=== PATIENT | male | born 1955 | race Two or more races ===

== ENCOUNTER 2023-12-24 11:31 | Emergency (ER) | payer OTHER, MEDICARE, SELFPAY ==
[2023-12-24 11:35] VITALS: BP 128/83; PULSE 82; RESP 15; TEMP 36.7; O2SAT 98; BMI 19.5
--- NOTE | 2023-12-24 11:45 | PD.EDAMS ---
Altered Mental Status RME/HPI General Chief Complaint: Altered Mental Status Stated Complaint: HYPOGLYCEMIA Time Seen by Provider: 12/24/23 11:44 Arrival date/time: 12/24/23 11:31 This is a 68-year-old male that comes in with complaints of altered mental status. Patient brought in by ambulance and was told that his blood sugar was 33 upon their arrival. Patient was given some glucose and now is blood sugar is 211. Patient reports that he has been sick for the last few days and not feeling well. Patient not eating and drinking like he usually does. Patient currently complains of a headache. Patient has a history of his gallbladder being removed in the past. Patient states he is not diabetic. Patient complains of a cough for the last few days. Patient also complains of vomiting for the past 3 days. Patient reports he is not able to keep anything down. Patient denies any runny nose sore throat. Patient does complain of a headache. Related Data Home Medications ?Medication ?Instructions ?Recorded ?Confirmed ferrous sulfate 325 mg (65 mg 325 mg PO QDAY 09/15/22 12/25/23 iron) tablet vitamin B6-vitamin E-magnesium 1 tab PO QDAY 09/15/22 12/25/23 tablet Previous Rx's ?Medication ?Instructions ?Recorded ondansetron 4 mg disintegrating 4 mg PO Q8H #10 tabs 12/24/23 tablet amoxicillin 500 mg capsule 500 mg PO Q12H #10 caps 12/26/23 aspirin 81 mg tablet,delayed 81 mg PO QDAY 30 days #30 tabs 12/26/23 release atorvastatin 20 mg tablet 20 mg PO HS 30 days #30 tabs 12/26/23 food supplemt, lactose-reduced 1 ea PO BID #3,960 mL 12/26/23 (Ensure MAX Protein oral liquid) pantoprazole 20 mg tablet,delayed 20 mg PO QDAY #14 tabs 12/26/23 release Allergies Allergy/AdvReac Type Severity Reaction Status Date / Time No Known Allergies Allergy Verified 09/15/22 10:12 Review of Systems Review of Systems Systems Reviewed: All systems reviewed, normal except as documented Past Medical History Past Medical History NEUROLOGIC: Negative Neurological Disorders CARDIAC: Positive Cardiac Disorders and Coronary Artery Disease GASTROINTESTINAL: Positive Hepatitis GENITOURINARY: Negative Genitourinary Disorders or Renal Disease MUSCULOSKELETAL: Negative Musculoskeletal Disorders Family History FAMILY HISTORY: Positive Family Cardiac Disorders Surgical History SURGICAL: Positive Coronary Stent Social History SMOKING STATUS: Former smoker SECOND HAND EXPOSURE: No ED Exam General General appearance: Present alert and in no apparent distress Head Head exam: Present atraumatic Eye Eye exam: Present normal appearance, PERRL and EOMI ENT ENT exam: Present normal exam, normal oropharynx and mucous membranes moist Neck Neck exam: Present normal inspection, full ROM and trachea midline Chest Chest inspection: Present normal inspection and symmetric chest wall rise Respiratory Respiratory exam: Present normal lung sounds bilaterally Cardiovascular Cardiovascular exam: Present regular rate, normal rhythm and normal heart sounds Abdominal Exam Abdominal exam: Present soft and other (soft nontender ) Extremities Exam Extremities exam: Present normal inspection and full ROM Back Exam Back exam: Present normal inspection and full ROM Neurological Exam Neurological exam: Present alert and oriented X3 Psychiatric Psychiatric exam: Present normal affect and normal mood Skin Skin exam: Present warm, dry, intact and normal color Course Quality Measures none Orders Category Date Time Status Bedside Blood Glucose NOW Care 12/24/23 15:44 Completed Bedside COVID-19 Antigen Test NOW Care 12/24/23 11:46 Completed Bedside Influenza A&B Antigen Test NOW Care 12/24/23 11:[address] head/brain wo con Stat Exams 12/24/23 11:46 Completed XR chest 2V Stat Exams 12/24/23 11:46 Completed CBC Stat Lab 12/24/23 12:45 Completed Comprehensive Metabolic Panel Stat Lab 12/24/23 12:45 Completed Drug Screen,Urine Stat Lab 12/24/23 14:45 Completed Lipase Stat Lab 12/24/23 12:45 Completed Urinalysis, C/S if Indicated Stat Lab 12/24/23 14:45 Completed Dextrose 10%-Water 1000 ml [D10w 1000 ml] 1,000 ml Med 12/24/23 12:26 Discontinued IV 50 mls/hr DiphenhydrAMINE INJ [Benadryl Inj] Med 12/24/23 13:32 Discontinued 12.5 mg IM X1 ONE DiphenhydrAMINE INJ [Benadryl Inj] Med 12/24/23 13:37 Discontinued 12.5 mg IVP X1 ONE Ketorolac Inj [Toradol Inj] Med 12/24/23 13:32 Discontinued 30 mg IVP X1 ONE Ondansetron Inj [Zofran Inj] Med 12/24/23 12:46 Discontinued 4 mg IV X1 ONE Sodium Chloride 0.9% 500 ml [Ns] 500 ml Med 12/24/23 12:46 Discontinued IV 999 mls/hr Vital Signs Vital signs: Vital Signs Temperature 98.0 F 12/24/23 11:35 Pulse Rate 82 12/24/23 11:35 Respiratory Rate 15 12/24/23 11:35 Blood Pressure 128/83 12/24/23 11:35 Pulse Oximetry (%) 98 12/24/23 11:35 Oxygen Delivery Method Room Air 12/24/23 11:35 Altered Mental Status MDM Narrative MDM Narrative:: This is a 68-year-old male that comes in with complaints of altered mental status. Patient brought in by ambulance and was told that his blood sugar was 33 upon their arrival. Patient was given some glucose and now is blood sugar is 211. Patient reports that he has been sick for the last few days and not feeling well. Patient not eating and drinking like he usually does. Patient currently complains of a headache. Patient has a history of his gallbladder being removed in the past. Patient states he is not diabetic. Patient complains of a cough for the last few days. Patient also complains of vomiting for the past 3 days. Patient reports he is not able to keep anything down. Patient denies any runny nose sore throat. Patient does complain of a headache. Denies fever or chills. Patient given IV fluids. Patient given Zofran for nausea. Patient able to eat a sandwich and orange juice. patient reports feeling better and feels comfortable going home at this time. Patient was complaining of a headache so he was given Benadryl, Toradol for pain. Patient reports his headache is better. I spoke to patient at length about labs. I told him he would need to follow-up with his primary provider. Labs show a white count of 3.0, hemoglobin and hematocrit of 11.5 and 31.9. Platelet count is low at 74 sodium is 130, potassium 3.6 chloride 98 kidney function looks okay today glucose on labs show 133 AST is 43, urine shows some blood. Chest x-ray shows no active disease. I spoke to patient about possibly having an enlarged prostate. Patient not having urinary symptoms but we will send a urine culture. Covid and influenza negative. Patient feels comfortable going home at this time with . Patient data External records reviewed:: [facility] previous records Clinical information provided by:: patient Social determinants that could affect healthcare access:: none Patient has the following chronic illnesses:: none How is presenting disease/condition affected by chronic disease/condition?: no chronic disease Evaluation data The following diagnostics were reviewed and interpreted by me:: lab results and radiology exam(s) Lab and/or radiology exams considered but not ordered:: none Interpretation Summary: see note Medications / Prescriptions Medications or Prescriptions considered but not ordered:: none Medication administrations:: Medication Administration History Discontinued Medications Diphenhydramine HCl (Diphenhydramine Inj 50 Mg/Ml Vial) 12.5 mg IM X1 ONE Stop: 12/24/23 13:33 Last Admin: 12/24/23 13:38 Dose: Not Given Documented By: DO Non-Admin Reason: ALTERNATE ROUTE Diphenhydramine HCl (Diphenhydramine Inj 50 Mg/Ml Vial) 12.5 mg IVP X1 ONE Stop: 12/24/23 13:38 Last Admin: 12/24/23 14:02 Dose: 12.5 mg Documented By: YEYO Dextrose (D10w 1000 Ml) 1,000 mls @ 50 mls/hr IV .Q20H SUZY Stop: 12/25/23 08:25 Last Admin: 12/24/23 12:46 Dose: Not Given Documented By: VG Non-Admin Reason: Discontinued Sodium Chloride (Ns) 500 mls @ 999 mls/hr IV .Q31M ONE Stop: 12/24/23 13:16 Last Infusion: 12/24/23 13:39 Dose: Infused Documented By: Admin: 12/24/23 13:01 Dose: 999 mls/hr Documented By: YEYO Ketorolac Tromethamine (Ketorolac Inj 30 Mg/Ml Vial) 30 mg IVP X1 ONE Stop: 12/24/23 13:33 Last Admin: 12/24/23 13:56 Dose: 30 mg Documented By: YEYO Ondansetron HCl (Ondansetron Inj 2 Mg/Ml Inj 2 Ml) 4 mg IV X1 ONE; Protocol Stop: 12/24/23 12:47 Last Admin: 12/24/23 12:59 Dose: 4 mg Documented By: YEYO see mar Consultations Consultation(s) initiated? (list below): No Diagnosis Differential diagnosis altered mental status: altered mental status, hypoglycemia, subarachnoid hemorrhage and sepsis Most likely diagnosis given after review of the tests above:: dehydration, upper respiratory infection Admission Indicated Admission indicated?: not indicated Admission Request Was there a request for admission?: No Disposition Plan Disposition Plan: Discharge Discharge Attestation Discharge Attestation: The patient and all family members were given an opportunity to ask questions and understood the discharge instructions. Discharge instructions specifically effects, indications for sooner follow up or return to the emergency department, and the expected course of current diagnosis. Patient condition: Stable Discharge Plan Plan Patient Disposition: HOME (Self Care) Patient condition on transfer: Stable Prescriptions/Referrals Prescriptions/Med Rec: New ondansetron 4 mg tablet,disintegrating 4 mg PO Q8H Qty: 10 0RF No Action atorvastatin 20 mg Tablet 20 mg PO HS 30 Days Qty: 30 0RF aspirin 81 mg Tablet,Delayed Release (Dr/Ec) 81 mg PO QDAY 30 Days Qty: 30 3RF amoxicillin 500 mg capsule 500 mg PO Q12H Qty: 10 0RF pantoprazole 20 mg tablet,delayed release (DR/EC) 20 mg PO QDAY Qty: 14 0RF Ensure MAX Protein Liquid 1 ea PO BID Qty: 3960 0RF ferrous sulfate 325 mg (65 mg iron) Tablet 325 mg PO QDAY vitamin B6-vitamin E-magnesium Tablet 1 tab PO QDAY Referrals: Erick Osborne MD [Primary Care Provider] - In 1 week Problem List Clinical Impression: Vomiting, Cough, Upper respiratory infection, viral, Hypoglycemia, Hematuria, Thrombocytopenia Patient/Caregiver Discharge Instructions Discharge Activity: activity as tolerated Education Materials: Thrombocytopenia, ED URI, Viral, No Abx (Adult), ED Vomiting and Diarrhea ... Additional Instructions: Please drink plenty of fluids. Come back to the emergency room if symptoms change or worsen. Follow-up with primary provider in 1 to 2 days. Print Language: Bengali Stand Alone Forms: Charley Award Info., Patient Portal Info Letter PA/KARLOS Supervising Physician EDUAR/KARLOS Supervising Physician: stefanie
--- NOTE | 2023-12-24 11:46 | XR_ITS ---
Examination: CT brain head without contrast. 2-D sagittal coronal reconstructions Date and time of exam:December 24, 2023 1224 hours INDICATIONS: Altered mental status today CTDI: vol (mGy):47.7 DLP: (mGycm):1050 Technique: Multiple CT axial sections of the brain have been obtained, 5 mm slice thickness. Contrast has not been administered. 2-D sagittal, coronal reconstructions have been obtained Low dose protocols were performed. One or more of the following dose reduction techniques were used; automated exposure control, adjustment of the mA and/or KV according to patient size, use of iterative reconstruction technique. Findings: No significant ventricular enlargement. Stable temporal lobe encephalomalacia Intra-axial or extra-axial hemorrhage density is not seen. No mass effect or midline shift Basal cisterns are not remarkable. Fourth ventricle is midline. Cranial vault intact. Impression: Negative for acute hemorrhage, mass effect or midline shift Advise clinical correlation and follow-up accordingly
--- NOTE | 2023-12-24 11:46 | XR_ITS ---
Examination: PA lateral chest 2 views TECHNIQUE: Upright PA lateral chest 2 views Exam date and time: December 24, 2023 at 1325 hours Comparison April 01, 2022 INDICATIONS: Onset fever today. FINDINGS: Normal heart size Lungs are clear. Moderate thoracic spondylosis IMPRESSION: No pneumonia identified
[2023-12-24 12:10] VITALS: PULSE 82; RESP 18; O2SAT 96
--- NOTE | 2023-12-24 12:25 | PC.NURSE ---
PT TAKEN TO CT.
[2023-12-24] MEDS: ONDANSETRON INJ 2 MG/ML INJ 2 ML 4 MG IV (12:59)
[2023-12-24] MEDS: SODIUM CHLORIDE 0.9% 500 ML 500 ML 999 ML IV (13:01)
[2023-12-24 13:06] VITALS: BP 114/81; PULSE 69; RESP 16; TEMP 36.7; O2SAT 97
[2023-12-24 13:14] LABS: Basophils # (Auto) 0.1 Thou/mm3 (0.0-0.2); Basophils % (Auto) 2 % (0-2.5); Eosinophils # (Auto) 0.2 Thou/mm3 (0.0-0.5); Eosinophils % (Auto) 7 % (0-10); Hematocrit 31.9 % (41.0-53.0); Hemoglobin 11.5 g/dL (13.5-16.0); Immature Granulocytes % (Auto) 0 % (0-0); Immature Granulocytes Auto 0.01 Thou/mm3 (0.00-0.00); Lymphocytes # (Auto) 1.1 Thou/mm3 (1.0-4.8); Lymphocytes % (Auto) 37 % (10-50); Mean Corpuscular HGB Conc 36.1 g/dl (31.0-37.0); Mean Corpuscular Hemoglobin 29.6 pg (25.0-35.0); Mean Corpuscular Volume 82 fL (80-100); Monocytes # (Auto) 0.3 Thou/mm3 (0.0-0.8); Monocytes % (Auto) 11 % (0-12); Neutrophils # (Auto) 1.3 Thou/mm3 (1.8-7.7); Neutrophils % (Auto) 43 % (37-80); Nucleated Red Blood Cell % 0 /100 WBC (0); RDW Standard Deviation 38.4 fL (35.1-43.9); Red Blood Count 3.89 Miln/mm3 (4.50-5.90)
[2023-12-24 13:28] LABS: Alanine Aminotransferase 14 U/L (10-49); Albumin, Serum 4.4 gm/dL (3.4-4.8); Albumin/Globulin Ratio 1.8 (1.2-2.2); Alkaline Phosphatase 77 U/L (46-116); Anion Gap 4 (7-16); Aspartate Amino Transferase 43 U/L (0-34); BUN/Creatinine Ratio 20 Ratio (12-20); Bilirubin,Total 1.1 mg/dL (0.3-1.2); Blood Urea Nitrogen 14 mg/dL (9-23); Carbon Dioxide 28.4 mMol/L (20.0-31.0); Chloride 98 mMol/L (98-107); Creatinine (Component) 0.7 mg/dL (0.6-1.3); Estimated Creatinine Clearance 93.2 mL/min (>60); Globulin 2.5 gm/dL (2.3-3.5); Glucose 133 mg/dL (74-106); Lipase 28 U/L (12-53); Osmolality,Calculated 263 (275-295); Potassium 3.6 mMol/L (3.4-5.1); Sodium 130 mMol/L (136-145); Total Protein 6.9 gm/dL (5.7-8.2); eGFR > 60 See Note
[2023-12-24 13:31] LABS: Platelet Count 74 Thou/mm3 (140-440)
[2023-12-24] MEDS: KETOROLAC INJ 30 MG/ML VIAL IVP (13:56)
[2023-12-24] MEDS: DiphenhydrAMINE INJ 50 MG/ML VIAL 12.5 MG IVP (14:02)
[2023-12-24 14:08] LABS: Slide Review Platelets confirmed
[2023-12-24 14:55] LABS: Collection Type, Urine Voided
[2023-12-24 15:02] LABS: Bilirubin,Urine Negative (Negative); Blood,Urine 2+ (Negative); Clarity,Urine Clear (Clear/Hazy); Color,Urine Yellow (Lt Yel-Yel); Culture Indicated,Urine Not Indicated; Glucose, Urine 2+ (Negative); Ketones,Urine 3+ (Negative); Leukocyte Esterase,Urine Negative (Negative); Nitrite,Urine Negative (Negative); Protein,Urine Trace (Neg - Trace); RBC,Urine 8 /hpf (0-3); Specific Gravity,Urine 1.027 (1.001-1.035); Squamous Epithelial Cell,Urine < 1 /hpf (0-5); Urobilinogen,Urine Negative mg/dL (0.0-1.0); WBC,Urine 3 /hpf (0-5)
[2023-12-24 15:07] LABS: Amphetamine/Methamp Scrn,U Negative (Negative); Barbiturate Screen,Urine Negative (Negative); Benzodiazepines Screen,Urine Negative (Negative); Benzoylecgonine Screen, Ur Negative (Negative); Fentanyl Screen,Urine Negative (Negative); Opiate Screen,Urine Negative (Negative); THC Screen,Urine Negative (Negative)
[2023-12-24 16:09] VITALS: BP 125/77; PULSE 72; RESP 16; TEMP 36.6; O2SAT 97
== END 2023-12-24 16:25 | disposition home or self-care (01) ==
PROVIDERS: Nurse Practitioner Family; Emergency Provider Emergency Medicine; PCP Family Medicine
DX: J06.9 Acute upper respiratory infection, unspecified (principal); D69.6 Thrombocytopenia, unspecified; R11.10 Vomiting, unspecified; E16.2 Hypoglycemia, unspecified; R31.9 Hematuria, unspecified; Z87.891 Personal history of nicotine dependence
CPT/HCPCS: 36415; 70450; 71046; 80053; 80307; 81001; 83690; 85025; 87086; 87400; 87811; 96361; 96374; 96375; 99284; J1200; J1885; J2405; J7040

== ENCOUNTER 2023-12-24 21:23 | Observation (INO) | payer MEDICARE, SELFPAY ==
[2023-12-24] VITALS (10 sets, daily range): BP systolic 89–167; BP diastolic 56–91; PULSE 81–95; RESP 12–37; TEMP 38.1–39.9; O2SAT 86–100; BMI 23.0
--- NOTE | 2023-12-24 21:59 | XR_ITS ---
Examination: AP chest single view Technique one AP portable upright chest single view Exam date and time: December 24, 2023 10:13 PM Comparison December 24, 2023 1325 hrs. Indications: Sepsis today Findings: Normal heart size Lungs are clear. The osseous structures are intact Impression: No active disease
[2023-12-24] MEDS: SODIUM CHLORIDE 0.9% 1000 ML 2,259 ML 2259 ML IV (22:04)
--- NOTE | 2023-12-24 22:05 | PC.NURSE ---
PT'S BROUGHT PT TO ER BECAUSE HE WAS NOT ACTING RIGHT, PT RECENTLY SEEN AT ER DUE TO LOW BS, TRIAGE NURSE CHECK BS= 107, PT GOT TO ROOM 1, TEMP OF 103.9 RECTALLY, SEPSIS ALERT CALLED. PT RESPONSIVE, NO C/O PAIN, NO SOB.
[2023-12-24] MEDS: ACETAMINOPHEN 325 MG TABLET 650 MG PO (22:09)
[2023-12-24 22:18] LABS: Collection Type, Urine Catheter
[2023-12-24 22:20] LABS: Lactate (Lactic Acid) 1.6 mMol/L (0.4-2.0)
[2023-12-24 22:26] LABS: Basophils # (Auto) 0.1 Thou/mm3 (0.0-0.2); Basophils % (Auto) 1 % (0-2.5); Eosinophils # (Auto) 0.2 Thou/mm3 (0.0-0.5); Eosinophils % (Auto) 3 % (0-10); Hematocrit 31.4 % (41.0-53.0); Hemoglobin 11.5 g/dL (13.5-16.0); Immature Granulocytes % (Auto) 0 % (0-0); Immature Granulocytes Auto 0.02 Thou/mm3 (0.00-0.00); Lymphocytes # (Auto) 2.3 Thou/mm3 (1.0-4.8); Lymphocytes % (Auto) 29 % (10-50); Mean Corpuscular HGB Conc 36.6 g/dl (31.0-37.0); Mean Corpuscular Hemoglobin 29.4 pg (25.0-35.0); Mean Corpuscular Volume 80 fL (80-100); Monocytes # (Auto) 0.8 Thou/mm3 (0.0-0.8); Monocytes % (Auto) 10 % (0-12); Neutrophils # (Auto) 4.6 Thou/mm3 (1.8-7.7); Neutrophils % (Auto) 58 % (37-80); Nucleated Red Blood Cell % 0 /100 WBC (0); Platelet Count 144 Thou/mm3 (140-440); Red Blood Count 3.91 Miln/mm3 (4.50-5.90)
[2023-12-24 22:39] LABS: Amphetamine/Methamp Scrn,U Negative (Negative); Barbiturate Screen,Urine Negative (Negative); Benzodiazepines Screen,Urine Negative (Negative); Benzoylecgonine Screen, Ur Negative (Negative); Fentanyl Screen,Urine Negative (Negative); Opiate Screen,Urine Negative (Negative); THC Screen,Urine Negative (Negative)
[2023-12-24 22:50] LABS: Alanine Aminotransferase 14 U/L (10-49); Albumin, Serum 4.1 gm/dL (3.4-4.8); Albumin/Globulin Ratio 1.8 (1.2-2.2); Alkaline Phosphatase 72 U/L (46-116); Anion Gap 6 (7-16); Aspartate Amino Transferase 43 U/L (0-34); BUN/Creatinine Ratio 20 Ratio (12-20); Bilirubin,Total 1.3 mg/dL (0.3-1.2); Blood Urea Nitrogen 20 mg/dL (9-23); Carbon Dioxide 24.9 mMol/L (20.0-31.0); Chloride 100 mMol/L (98-107); Estimated Creatinine Clearance 76.9 mL/min (>60); Globulin 2.3 gm/dL (2.3-3.5); Glucose 94 mg/dL (74-106); Lipase 26 U/L (12-53); Osmolality,Calculated 265 (275-295); Potassium 4.3 mMol/L (3.4-5.1); Procalcitonin 0.19 ng/ml (0.0-0.49); Sodium 131 mMol/L (136-145); Total Protein 6.4 gm/dL (5.7-8.2); Troponin I < 0.020 ng/mL (0.0-0.045); eGFR > 60 See Note
[2023-12-24 22:57] LABS: Bilirubin,Urine Negative (Negative); Blood,Urine 1+ (Negative); Clarity,Urine Clear (Clear/Hazy); Color,Urine Yellow (Lt Yel-Yel); Culture Indicated,Urine Not Indicated; Glucose, Urine 1+ (Negative); Ketones,Urine 1+ (Negative); Leukocyte Esterase,Urine Negative (Negative); Nitrite,Urine Negative (Negative); PH,Urine 5.5 (5.0-7.0); Protein,Urine Trace (Neg - Trace); RBC,Urine 9 /hpf (0-3); Specific Gravity,Urine 1.024 (1.001-1.035); Squamous Epithelial Cell,Urine < 1 /hpf (0-5); Urobilinogen,Urine Negative mg/dL (0.0-1.0); WBC,Urine 3 /hpf (0-5)
--- NOTE | 2023-12-24 22:58 | PD.EDRME ---
Rapid Medical Screening Exam [facility] Arrival date/time: 12/24/23 21:23 This is a 68-year-old male that comes in with fever and altered mental status. Patient was just seen here a couple hours ago and discharged home with possible upper respiratory infection. Patient came in earlier with complaints of altered mental status. Patient was brought in by ambulance with a low glucose of 33 upon arrival and got better with IV fluids and some food. Patient reports that he has been sick for the last few days and not feeling well. Patient not eating and drinking like he usually does. Patient states he has been vomiting for 3 days. Patient denies abdominal pain. Patient complained of a migraine headache earlier and pain was relieved with Toradol and Reglan given in the ED. Patient complains of a cough for the last few days. Patient also complains of vomiting for the past 3 days. Patient reports he is not able to keep anything down. Patient denies any runny nose sore throat. Patient reports migraine headache has resolved. Patient at bedside states that patient was feeling fine when he went home. Patient took a nap and woke up approximately at 8:30 PM tonight and walked to the bathroom to urinate and did not make it to the bathroom. Patient's stated that she had to help him back to his bed. Patient has no focal deficits. Patient has a history of his gallbladder being removed in the past. Patient states he is not diabetic but has been told he has borderline diabetic in the past. Patient also has a history of being a drug addict in the past. 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 Patient reports history of alcoholism but has not had a drink per since 2003. Patient also has a history of hepatitis C and was treated in 2011. Per has had episodes of hypoglycemia in the past. Patient also has a history of a heart stent done in [facility]. Patient denies chest pain or shortness of breath upon arrival. Chief Complaint: Altered Mental Status Time Seen by Provider: 12/24/23 22:50 Vital signs: Vital Signs Temperature 102 F H 12/24/23 21:52 Pulse Rate 81 12/24/23 21:52 Respiratory Rate 20 12/24/23 21:52 Blood Pressure 167/91 H 12/24/23 21:52 Pulse Oximetry (%) 96 12/24/23 21:52 Oxygen Delivery Method Room Air 12/24/23 21:52
--- NOTE | 2023-12-24 23:10 | XR_ITS ---
Examination: CT chest with intravenous contrast 2-D sagittal and coronal reconstructions Exam date and time: December 24, 2023 1133 hrs. Indications: Fever vomiting shortness of breath today CTDI:vol (mGy) 8.41 DLP: (mGycm) 303 Technique: Multiple axial sections of the thorax have been obtained. Sections have been obtained, 3 mm slice thickness. Mediastinal and lung density settings have been obtained. Intravenous contrast administered, 60 cc Isovue-370. 2-D sagittal, coronal images obtained. Low dose protocols were performed. One or more of the following dose reduction techniques were used; automated exposure control, adjustment of the mA and/or KV according to patient size, use of iterative reconstruction technique. Findings: No thoracic aortic aneurysmal dilatation No pulmonary artery emboli on this non-CTA study Mild enlargement left atrium No paratracheal tracheobronchial or bronchopulmonary adenopathy 4 mm pulmonary nodule left upper lobe image 91 10 mm pulmonary nodule with smaller satellite pulmonary nodules posterior left lung image 1:15 6 mm pulmonary nodule posterior left lung image 147 Mild nodular pneumonia left lower lobe No pulmonary edema Liver is irregular in contour Spleen is not enlarged Gastric mucosa appears thickened Absent gallbladder No pancreatic mass No hydronephrosis Impression: Left lower lobe pneumonia, small pulmonary nodules left lung, follow-up chest imaging is needed to document clearing Primary hepatocellular disease Gastritis pattern, clinical correlation advised, suggest elective upper GI series follow-up
--- NOTE | 2023-12-24 23:10 | XR_ITS ---
Examination: CT abdomen with intravenous contrast CT pelvis with intravenous contrast 2-D coronal reconstructions 2-D sagittal reconstructions Date and time of exam:December 24, 2023 1133 hrs. Indications: Confusion abdominal pain nausea vomiting and fever today. CTDI: vol (mGy) 5.36 DLP: (mGycm) 294 Technique: Multiple axial sections of the abdomen and pelvis have been obtained. 64 slice high-resolution scanner used. 3 mm axial sections have been obtained, post intravenous injection 60 cc Isovue-370 2-D sagittal, coronal reconstructions obtained. Low dose protocols were performed. One or more of the following dose reduction techniques were used; automated exposure control, adjustment of the mA and/or KV according to patient size, use of iterative reconstruction technique. Findings: Left lower lobe pneumonia Liver is irregular in contour Absent gallbladder Gastric mucosa is thickened Spleen is not enlarged No pancreatic mass No renal or ureteral calculi, no hydronephrosis Abdominal aorta normal size Normal appendix No bowel obstruction or diverticulitis Minimal thickening of the urinary bladder wall Transverse prostate dimension 5.2 cm with central enhancing nodule 3 cm Moderate osteopenia with advanced degenerative disc disease L5-S1 Impression: Left lower lobe pneumonia Primary hepatocellular disease versus cirrhosis Gastritis pattern Mild cystitis pattern Prostatomegaly, suspicious for enhancing 3 cm central prostate nodule, recommend correlation with PSA and follow-up transrectal prostate sonography
--- NOTE | 2023-12-24 23:12 | EKG_ITS ---
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
--- NOTE | 2023-12-24 23:12 | PD.EDAMS ---
Altered Mental Status RME/HPI General Chief Complaint: Altered Mental Status Stated Complaint: APPEARS CONFUSED; SEEN EARLIER FOR LOW BS. Time Seen by Provider: 12/24/23 22:50 Arrival date/time: 12/24/23 21:23 Limitations: no limitations RME / HPI RME / HPI narrative: 12/24/23 21:23 Dr[facility] ED Evaluation: This is a 68-year-old male that comes in with fever and altered mental status. Patient was just seen here a couple hours ago and discharged home with possible upper respiratory infection. Patient came in earlier with complaints of altered mental status. Patient was brought in by ambulance with a low glucose of 33 upon arrival and got better with IV fluids and some food. Family reports that the patient has been sick and generally not feeling well for the last few days. He normally only eats 1 meal a meal a day but has been feeling worse and not not even barely eating 1 meal a day. The patient left the emergency department today and went to sleep. Did not eat. Nonproductive cough. Unable to tolerate liquids last 3 days. Patient has associated nausea and similar migraine headache that he usually gets 3 to 4 months a year. Patient at bedside states that patient was feeling fine when he went home. Patient took a nap and woke up approximately at 8:30 PM tonight and walked to the bathroom to urinate and did not make it to the bathroom. Patient's stated that she had to help him back to his bed. Patient has no focal deficits. Past medical history Status post cholecystectomy Patient is not a diabetic but has hypoglycemia History of alcoholism last drink 2003 History of hep C treated in 2011 History of stent at [facility] a few years ago. Related Data Home Medications ?Medication ?Instructions ?Recorded ?Confirmed ferrous sulfate 325 mg (65 mg 325 mg PO QDAY 09/15/22 12/25/23 iron) tablet vitamin B6-vitamin E-magnesium 1 tab PO QDAY 09/15/22 12/25/23 tablet Previous Rx's ?Medication ?Instructions ?Recorded ondansetron 4 mg disintegrating 4 mg PO Q8H #10 tabs 12/24/23 tablet amoxicillin 500 mg capsule 500 mg PO Q12H #10 caps 12/26/23 aspirin 81 mg tablet,delayed 81 mg PO QDAY 30 days #30 tabs 12/26/23 release atorvastatin 20 mg tablet 20 mg PO HS 30 days #30 tabs 12/26/23 food supplemt, lactose-reduced 1 ea PO BID #3,960 mL 12/26/23 (Ensure MAX Protein oral liquid) pantoprazole 20 mg tablet,delayed 20 mg PO QDAY #14 tabs 12/26/23 release Allergies Allergy/AdvReac Type Severity Reaction Status Date / Time No Known Allergies Allergy Verified 09/15/22 10:12 Review of Systems Review of Systems Systems Reviewed: All systems reviewed, normal except as documented Past Medical History Past Medical History NEUROLOGIC: Negative Neurological Disorders or Seizures CARDIAC: Positive Cardiac Disorders, Coronary Artery Disease and Hypercholesterolemia (IN THE PAST. NO MEDS AT THIS TIME); Negative Congestive Heart Failure RESPIRATORY: Negative Chronic Obstructive Pulmonary Disease (COPD) or Asthma GASTROINTESTINAL: Positive Gastrointestinal Disorders (HEPATITIS C. TREATMENT COMPLETED ON 2011) and Hepatitis GENITOURINARY: Negative Genitourinary Disorders or Renal Disease MUSCULOSKELETAL: Positive Osteoporosis; Negative Musculoskeletal Disorders ENDOCRINE: Negative Diabetes Mellitus Type 1 or Diabetes Mellitus Type 2 HEMATOLOGIC: Positive Anemia; Negative Sickle Cell Disease OTHER HISTORY: Negative Falls, Blood Transfusions, Blood Transfusion Reaction, Anesthesia Reactions or Cancer Family History FAMILY HISTORY: Positive Family Cardiac Disorders Surgical History SURGICAL: Positive Cardiac Surgery and Coronary Stent Social History SMOKING STATUS: Never smoker SECOND HAND EXPOSURE: No ED Exam General Limitations: Present no limitations General appearance: Present alert and in no apparent distress Head Head exam: Present atraumatic Eye Eye exam: Present normal appearance, PERRL and EOMI ENT ENT exam: Present normal exam, normal oropharynx and mucous membranes moist Neck Neck exam: Present normal inspection, full ROM and trachea midline Chest Chest inspection: Present normal inspection and symmetric chest wall rise Respiratory Respiratory exam: Present normal lung sounds bilaterally Cardiovascular Cardiovascular exam: Present regular rate, normal rhythm and normal heart sounds Abdominal Exam Abdominal exam: Present soft and normal bowel sounds Extremities Exam Extremities exam: Present normal inspection and full ROM Back Exam Back exam: Present normal inspection and full ROM Neurological Exam Neurological exam: Present alert, oriented X3 and CN II-XII intact Psychiatric Psychiatric exam: Present normal affect and normal mood Skin Skin exam: Present warm, dry, intact and normal color Course Course Course Narrative: 2156: Sepsis alert initiated. Orders made at this time are congruent with ED Adult Sepsis Order List. Re-evaluation is to be completed. CXR is ordered for determining the etiology of fever. 2310: NS IVF infused. 2340: Sepsis reassessment performed consisting of lab review, vitals, physical exam including auscultation of heart, lungs, and visual evaluation of capillary refills, mucosal membranes and extremities. Quality Measures Possible source: unknown Blood cultures ordered: yes Antibiotic ordered: Yes Pertinent labs: 12/24/23 22:05 Lactic Acid 1.6 mMol/L (0.4-2.0) Procalcitonin 0.19 ng/ml (0.0-0.49) sepsis Orders Category Date Time Status Blood glucose [Bedside Blood Glucose] NOW Care 12/24/23 21:[address] Screening NOW Care 12/24/23 23:10 Completed EKG (ED ONLY) *Do not use* NOW Care 12/24/23 23:[address] abdomen pelvis w con Stat Exams 12/24/23 23:[address] chest w con Stat Exams 12/24/23 23:10 Completed EKG (ED Only) Stat Exams 12/24/23 23:12 Draft XR chest 1V portable Stat Exams 12/24/23 21:59 Completed B-Type Natriuretic Peptide Stat Lab 12/24/23 22:05 Completed Blood Culture (Lab) Stat Lab 12/24/23 22:05 Completed CBC Stat Lab 12/24/23 22:05 Completed Comprehensive Metabolic Panel Stat Lab 12/24/23 22:05 Completed Drug Screen,Urine Stat Lab 12/24/23 22:04 Completed Lactate (Lactic Acid) Stat Lab 12/24/23 22:05 Completed Lipase Stat Lab 12/24/23 22:05 Completed Procalcitonin Stat Lab 12/24/23 22:05 Completed Troponin I Stat Lab 12/24/23 22:05 Completed Urinalysis, C/S if Indicated Stat Lab 12/24/23 22:04 Completed Acetaminophen Tab [Tylenol Tab] Med 12/24/23 22:06 Discontinued 650 mg PO X1 ONE Sodium Chloride 0.9% 1000 ml [Ns] 2,259 ml Med 12/24/23 22:01 Discontinued IV 2,259 mls/hr cefTRIAXone [Rocephin] 1,000 mg Med 12/25/23 02:39 Discontinued Sodium Chloride 0.9% (P) [Ns 0.9% (P)] 50 ml IV X1 Vital Signs Vital signs: Vital Signs Temperature 102 F H 12/24/23 21:52 Pulse Rate 81 12/24/23 21:52 Respiratory Rate 20 12/24/23 21:52 Blood Pressure 167/91 H 12/24/23 21:52 Pulse Oximetry (%) 96 12/24/23 21:52 Oxygen Delivery Method Room Air 12/24/23 21:52 Pulse ox is 96% on room air, which is normal according to my interpretation. Altered Mental Status MDM Narrative MDM Narrative:: Differential diagnosis includes electrolyte abnormality, dehydration, cardiac disease, hypoglycemia secondary to not eating. Pneumonia Patient data External records reviewed:: [facility] previous records (Per chart review, patient was seen here earlier today for a cough.) Clinical information provided by:: patient Social determinants that could affect healthcare access:: none Patient has the following chronic illnesses:: CAD, HLD How is presenting disease/condition affected by chronic disease/condition?: uneffected by Evaluation data The following diagnostics were reviewed and interpreted by me:: lab results, radiology exam(s) and EKG tracing(s) Lab and/or radiology exams considered but not ordered:: none Interpretation Summary: CBC is normal, Sodium is slightly low at 131, Lactate is normal, Procalcitonin is normal, troponin is normal, UA shows 1+ glucose 1+ blood and 1+ ketones, UDS is negative, according to my interpretation. EKG done at 2327, sinus rhythm, rate of 92, no ST elevations or depressions, QTc: 421, no STEMI, similar to previous EKG done on 03/30/22, according to my interpretation. ------ [facility] Report Signed Patient: FELI NORMAN Record#: [id number] Birthdate: 1955 Age/Sex: 68 / M Location: [facility] Attending Dr: Ordering Physician: Pam Gerard MD Date of Service: 12/24/23 Procedure(s): XR chest 1V portable Accession Number(s): [id number] cc: Timmy Smith MD; NO PRIMARY/FAMILY,PHYSICIAN; Pam Gerard MD~ Examination: AP chest single view Technique one AP portable upright chest single view Exam date and time: December 24, 2023 10:13 PM Comparison December 24, 2023 1325 hrs. Indications: Sepsis today Findings: Normal heart size Lungs are clear. The osseous structures are intact Impression: No active disease Dictated By: Timmy Smith MD Signed By: <Electronically signed by Timmy Smith MD in [place]> 12/24/23 2311 ---- [facility] Report Signed Patient: FELI NORMAN Record#: [id number] Birthdate: 1955 Age/Sex: 68 / M [facility] Attending Dr: Ordering Physician: Matrha Mejia NP Date of Service: 12/24/23 Procedure(s): CT abdomen pelvis w con Accession Number(s): [id number] cc: Timmy Smith MD; NO PRIMARY/FAMILY,PHYSICIAN; Martha Mejia NP~ Examination: CT abdomen with intravenous contrast CT pelvis with intravenous contrast 2-D coronal reconstructions 2-D sagittal reconstructions Date and time of exam:December 24, 2023 1133 hrs. Indications: Confusion abdominal pain nausea vomiting and fever today. CTDI: vol (mGy) 5.36 DLP: (mGycm) 294 Technique: Multiple axial sections of the abdomen and pelvis have been obtained. 64 slice high-resolution scanner used. 3 mm axial sections have been obtained, post intravenous injection 60 cc Isovue-370 2-D sagittal, coronal reconstructions obtained. Low dose protocols were performed. One or more of the following dose reduction techniques were used; automated exposure control, adjustment of the mA and/or KV according to patient size, use of iterative reconstruction technique. Findings: Left lower lobe pneumonia Liver is irregular in contour Absent gallbladder Gastric mucosa is thickened Spleen is not enlarged No pancreatic mass No renal or ureteral calculi, no hydronephrosis Abdominal aorta normal size Normal appendix No bowel obstruction or diverticulitis Minimal thickening of the urinary bladder wall Transverse prostate dimension 5.2 cm with central enhancing nodule 3 cm Moderate osteopenia with advanced degenerative disc disease L5-S1 Impression: Left lower lobe pneumonia Primary hepatocellular disease versus cirrhosis Gastritis pattern Mild cystitis pattern Prostatomegaly, suspicious for enhancing 3 cm central prostate nodule, recommend correlation with PSA and follow-up transrectal prostate sonography Dictated By: Timmy Smith MD Signed By: <Electronically signed by Timmy Smith MD in OV> 12/25/23 0004 --------- [facility] Report Signed Patient: FELI NORMAN Record#: [id number] Birthdate: 1955 Age/Sex: 68 / M Location: [facility] Attending Dr: Ordering Physician: Martha Mejia NP Date of Service: 12/24/23 Procedure(s): CT chest w con Accession Number(s): [id number] cc: Timmy Smith MD; NO PRIMARY/FAMILY,PHYSICIAN; Martha Mejia NP~ Examination: CT chest with intravenous contrast 2-D sagittal and coronal reconstructions Exam date and time: December 24, 2023 1133 hrs. Indications: Fever vomiting shortness of breath today CTDI:vol (mGy) 8.41 DLP: (mGycm) 303 Technique: Multiple axial sections of the thorax have been obtained. Sections have been obtained, 3 mm slice thickness. Mediastinal and lung density settings have been obtained. Intravenous contrast administered, 60 cc Isovue-370. 2-D sagittal, coronal images obtained. Low dose protocols were performed. One or more of the following dose reduction techniques were used; automated exposure control, adjustment of the mA and/or KV according to patient size, use of iterative reconstruction technique. Findings: No thoracic aortic aneurysmal dilatation No pulmonary artery emboli on this non-CTA study Mild enlargement left atrium No paratracheal tracheobronchial or bronchopulmonary adenopathy 4 mm pulmonary nodule left upper lobe image 91 10 mm pulmonary nodule with smaller satellite pulmonary nodules posterior left lung image 1:15 6 mm pulmonary nodule posterior left lung image 147 Mild nodular pneumonia left lower lobe No pulmonary edema Liver is irregular in contour Spleen is not enlarged Gastric mucosa appears thickened Absent gallbladder No pancreatic mass No hydronephrosis Impression: Left lower lobe pneumonia, small pulmonary nodules left lung, follow-up chest imaging is needed to document clearing Primary hepatocellular disease Gastritis pattern, clinical correlation advised, suggest elective upper GI series follow-up Dictated By: Timmy Smith MD Signed By: <Electronically signed by Timmy Smith MD in OV> 12/25/23 0000 Medications / Prescriptions Medications or Prescriptions considered but not ordered:: none Medication administrations:: Medication Administration History Discontinued Medications Acetaminophen (Acetaminophen 325 Mg Tablet) 650 mg PO X1 ONE Stop: 12/24/23 22:07 Last Admin: 12/24/23 22:09 Dose: 650 mg Documented By: CVL Acetaminophen (Acetaminophen 325 Mg Tablet) 650 mg PO Q6H PRN PRN Reason: Mild Pain 1-3 or Fever>100.4 Stop: 01/24/24 05:32 Last Admin: 12/25/23 23:35 Dose: 650 mg Documented By: AM Aspirin (Aspirin 325 Mg Tablet) 325 mg PO X1 ONE Stop: 12/25/23 07:50 Last Admin: 12/25/23 08:40 Dose: 325 mg Documented By: Aspirin (Aspirin Ec 81 Mg Tabec) 81 mg PO QDAY [facility] Stop: 01/25/24 08:59 Last Admin: 12/26/23 08:34 Dose: 81 mg Documented By: LW Atorvastatin Calcium (Atorvastatin Calcium 20 Mg Tablet) 40 mg PO HS [facility] Stop: 01/24/24 20:59 Last Admin: 12/25/23 20:45 Dose: 40 mg Documented By: AM Azithromycin (Azithromycin 250 Mg Tablet) 500 mg PO QDAY [facility] Stop: 12/30/23 05:59 Last Admin: 12/26/23 08:34 Dose: 500 mg Documented By: Admin: 12/25/23 06:11 Dose: 500 mg Documented By: OBED Clopidogrel Bisulfate (Clopidogrel Bisulfate 75 Mg Tablet) 75 mg PO X1 ONE Stop: 12/25/23 07:50 Last Admin: 12/25/23 08:40 Dose: 75 mg Documented By: Dextrose (Dextrose 50%-Water Inj 50 Ml Syringe) 25 ml IV Q15MIN PRN PRN Reason: BG 50-70 responsive npo pt Stop: 01/24/24 16:07 Dextrose (Dextrose 50%-Water Inj 50 Ml Syringe) 50 ml IV Q15MIN PRN PRN Reason: BG <50 OR BG <70 & pt unresponsive Stop: 01/24/24 16:07 Glucagon (Glucagon Inj 1 Mg Vial) 1 mg IM Q15MIN PRN PRN Reason: BG <70, and no IV access Heparin Sodium (Porcine) (Heparin Sod Inj 5000 Unit/Ml Vial) 4,000 unit IV X1 ONE; Protocol Stop: 12/25/23 09:03 Last Admin: 12/25/23 09:42 Dose: 4,000 unit Documented By: Co-signed By: EDMUNDO Sodium Chloride (Ns) 2,259 mls @ 2,259 mls/hr 30 ml/kg infuse over 60 min (2259 ml) IV .Q1H ONE Stop: 12/24/23 23:00 Last Infusion: 12/24/23 23:10 Dose: Infused Documented By: Admin: 12/24/23 22:04 Dose: 2,259 mls/hr Documented By: CVL Ceftriaxone Sodium 1,000 mg/ (Sodium Chloride) 50 mls @ 100 mls/hr IV X1 ONE Stop: 12/25/23 03:08 Last Infusion: 12/25/23 03:30 Dose: Infused Documented By: Admin: 12/25/23 02:46 Dose: 100 mls/hr Documented By: CVL Ceftriaxone Sodium/Dextrose (Rocephin/D5w 1gm Iv Premix) 50 mls @ 100 mls/hr IV QPM SUZY Stop: 01/01/24 20:59 Azithromycin 500 mg/ Sodium (Chloride) 250 mls @ 250 mls/hr IV QDAY SUZY Stop: 12/30/23 09:00 Ceftriaxone Sodium/Dextrose (Rocephin/D5w 1gm Iv Premix) 50 mls @ 100 mls/hr IV QDAY SUZY Stop: 01/01/24 08:59 Last Admin: 12/26/23 08:34 Dose: 100 mls/hr Documented By: Infusion: 12/25/23 10:11 Dose: Infused Documented By: Admin: 12/25/23 09:37 Dose: 100 mls/hr Documented By: Heparin Sodium/Dextrose (Heparin In D5w Ivpb) 25,000 unit in 250 mls @ 8.981 mls/hr IV .Q24H SUZY; Protocol Stop: 01/08/24 09:14 Last Admin: 12/25/23 09:41 Dose: 12 units/kg/hr, 8.981 mls/hr Documented By: Co-signed By: EDMUNDO Magnesium Sulfate (Magnesium Sulfate Ivpb) 2 gm in 50 mls @ 25 mls/hr IV X1 ONE Stop: 12/25/23 16:56 Last Admin: 12/25/23 15:42 Dose: 25 mls/hr Documented By: Ondansetron HCl (Ondansetron Inj 2 Mg/Ml Inj 2 Ml) 4 mg IV Q6H PRN; Protocol PRN Reason: NAUSEA OR VOMITING Stop: 01/24/24 05:32 Pantoprazole Sodium (Pantoprazole Inj 40 Mg Vial) 40 mg IVP QDAY SUZY Stop: 01/24/24 08:59 Last Admin: 12/26/23 08:33 Dose: 40 mg Documented By: Admin: 12/25/23 08:39 Dose: 40 mg Documented By: MS as abov'se's Consultations Consultation(s) initiated? (list below): Yes Consultation #1 (Physician, Specialty, Details): Discussed case with [Dr. Turner, attending Dr. Nichols] from Hospitalist service regarding admission. Discussed patients ED course, exam findings, labs, and radiology results. The Hospitalist [agrees] to accept the patient for admission. Diagnosis Differential diagnosis altered mental status: other (electrolyte abnormality, dehydration, cardiac disease, hypoglycemia secondary to not eating, [neumonia) Most likely diagnosis given after review of the tests above:: see below Admission Indicated Admission indicated?: indicated Admission Request Was there a request for admission?: Yes Admission Attestation Admission request attestation: Discussed case with [] from Hospitalist service regarding admission. Discussed patients ED course, exam findings, labs, and radiology results. The Hospitalist [agrees,declines] to accept the patient for admission. Disposition Plan Disposition Plan: Admit Discharge Plan Plan Patient Disposition: Other Care w/in Hosp ([facility]) Patient condition on transfer: Stable Problem List Clinical Impression: Hypoglycemia Patient/Caregiver Discharge Instructions Other Activity Instructions:: Continue Amoxicillin and azithromycin for five days for pneumonia. Eat high protein diet, use Ensure supplement discharge or other Follow up with PCP with Insulin, Pro-Insulin, Insulin antibodies and C-peptide levels outpatient in 1 week. Follow-up with senior qualitative researcher in 1 week. Obtain echocardiogram outpatient. Continue aspirin 81 mg daily. Return to emergency department if symptoms worsen. Recommendation to follow-up with an longwall foreman, obtain referral from PCP. Diet Instructions: High-protein diet, eat regular meals, recommended supplements for diet like Ensure.
[2023-12-24 23:15] LABS: B-Type Natriuretic Peptide 39 pg/mL (0-100)
[2023-12-25] VITALS (30 sets, daily range): BP systolic 74–137; BP diastolic 51–87; PULSE 65–89; RESP 6–100; TEMP 36.7–37.9; O2SAT 96–100; BMI 21.0
[2023-12-25] MEDS: cefTRIAXone 1,000 MG in SODIUM CHLORIDE 0.9% (P) 50 ML 100 MG IV (02:46)
--- NOTE | 2023-12-25 05:49 | PD.RESHP ---
Documentation for date of: 12/25/23 HPI History of Present Illness History of present illness: Patient is a 68-year-old male with a past medical history of CAD status post stents (over 10 years ago), hx of hepatitis C s/p treatment 2011, and hx of COVID not oxygen dependent. Patient presented to the emergency room via EMS with a chief complaint of increasing weakness and blood glucose reading of 33 by paramedics. Patient states increasing headaches with emesis that started on Wednesday with about 5-6 episodes. Denied hematemesis. Decreased oral oral intake since Wednesday (12/22/2023) only consuming about 1 cracker. Patient denied any sick contacts fevers or chills at home. Denied chest pain or shortness of breath. Negative for GI symptoms. Patient's at bedside stated, patient was weak Wednesday morning (12/24/2023) and needed help ambulating to the restroom, did not make it and urinated on himself. Denies seizure-like activity. Denied any slurred speech. Denied any motor function deficit. Increasing urinary hesitancy for several years. Denied dysuria. Recently seen in ER on 12/24/2023 morning and discharged with diagnosis of hypoglycemia as well. Admitted on 12/25/2023 for Sespsis secondary to pneumonia. ER Visist: Vitals: T 102, HR 81, RR 20, BP 167/91, spo2 96 RA WBC 3.0, and 8.0 Procalcitonin 0.19, Lactic acid 1.6 Na 131 total bili 1.3, AST 43, ALT 14, Lipase 26 Troponin <0.02 UA gluocse +, ketones + Cxr: No active disease CT Chest (12/24/2023): Left lower lobe pneumonia, small pulmonary nodules left lung, follow-up chest imaging is needed to document clearing. CT Abdomen/Pelvis (12/24/2023): Left Lower Lobe Pneumonia, Primary hepatocellular disease versus cirrhosis, gastritis pattern; mild cystitis pattern, prostatomegaly, uspicious for enhancing 3 cm central prostate nodule, recommended correlation w/ PSA and follow up transrectal prostate sonography. 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 hx of alcohol use disorder hx of Polysubstance use disorder Past Surgical History: -CAD s/p stents -EGD 2022: GERD w/ esophagatitis -Colonoscopy 2022: Diverticulosis & hemorrhoids Home Medication: Denied taking any home medication Social History: IV Heroin use Former Smoker 5-6 cigarettes per day, quit 2003, patient can not recall when he first started to smoke, possible early 20s Allergies: None Code Status: Full Code Review of Systems Review of Systems Narrative Review of Systems: General appearance: NO weight change, yes fatigue, yes weakness, NO fever, NO chills, NO night sweats, Yes cough at baseline-nonproductive, but increased over the past week Skin: NO rash, NO itching, NO sores, NO moles HEENT: NO Trauma, NO nausea, YES vomiting, NO visual changes, NO blurry vision, NO double vision, NO tinnitus, NO vertigo, NO ear discharge, NO rhinorrhea, NO stuffiness, NO sneezing, NO allergy, NO epistaxis. NO Hoarseness, NO sore throat, NO swollen neck. Cardiac: NO Palpitations, NO dyspnea on exertion, NO orthopnea, NO paroxysmal nocturnal dyspnea, NO edema Respiratory: NO Shortness of Breath, NO Wheezing, yes Cough, NO Sputum, NO hemoptysis GI:Decrease appetite,Yes nausea, Yes vomiting, NO dysphagia, NO changes in bowel frequency, NO stool color, NO diarrhea, NO constipation, NO hemetemesis, NO hemorrhoids, NO melena, NO hematechezia, NO abdominal pain, NO jaundice Renal: NO frequency, NO hesitancy, NO urgency, NO hematuria, NO nocturia, NO incontinence MSK: NO muscle weakness, NO gout, NO arthritis, NO muscle stiffness Neuro: NO headaches, NO tremors, NO weakness, NO paralysis, NO seizures, NO loss of consciousness, NO numbness. Hem: NO anemia, NO easy bruising/bleeding, NO petechiae, NO purpura Endo: NO heat/cold intolerance, NO excessive sweating, NO polyuria, NO polydipsia, NO polyphagia, NO thyroid problems, NO diabetes Pysch: NO mood, NO anxiety, NO depression Exam Vital Signs Temp Pulse Resp BP Pulse Ox O2 Del Method 99.4 F 82 15 102/69 100 Room Air 12/25/23 04:05 12/25/23 04:05 12/25/23 04:05 12/25/23 04:05 12/25/23 04:05 12/25/23 04:05 Narrative Exam General Appearance: Alert & Oriented X3, well-nourished male who is lying in bed in no acute distress HEENT: Skull symmetrical and atraumatic. Conjunctivae pink and moist. Pupils equal, round, reactive to light and accommodation (PERRL). External ear without lesion or discharge. Straight, nares patient, mucosa pink, no discharge. No thyroid nodule appreciated. No cervical lymphadenopathy. Cardio: Normal Rate and Rhythm with S1 and S2 heart sounds. No murmurs or extra heart sounds auscultated. No bruits on carotid auscultation. No peripheral edema or cyanosis. Lungs: Symmetric with good expansion. Chest and back non-tender. Breath sounds vesicular without crackles, wheezing or rhonchi Abdomen: Non-tender, Non-distended, Normal Reactive Bowel Sounds Neuro: Alert, cooperative, oriented to person, place, and time. Speech clear. CN grossly intact. Upper motor strength 5/5 and Lower motor strength 5/5. Sensation intact. Results: Labs 12/24/23 22:05 12/24/23 22:05 Labs: Short CBC 12/24/23 Range/Units 22:05 WBC 8.0 D (3.8-10.6) Thou/mm3 Hgb 11.5 L (13.5-16.0) g/dL Hct 31.4 L (41.0-53.0) % Plt Count 144 D (140-440) Thou/mm3 BMP 12/24/23 22:05 Sodium 131 L Potassium 4.3 D Chloride 100 Carbon Dioxide 24.9 BUN 20 Creatinine 1.0 Glucose 94 Calcium 9.0 Cardiac Enzymes 12/24/23 Range/Units 22:05 Troponin I < 0.020 (0.0-0.045) ng/mL Liver Function 12/24/23 Range/Units 22:05 Total Bilirubin 1.3 H (0.3-1.2) mg/dL AST 43 H (0-34) U/L ALT 14 (10-49) U/L Alkaline Phosphatase 72 (46-116) U/L Albumin 4.1 (3.4-4.8) gm/dL Urine 12/24/23 Range/Units 22:04 Urine Color Yellow (Lt Yel-Yel) Urine Clarity Clear (Clear/Hazy) Urine pH 5.5 (5.0-7.0) Ur Specific [place] 1.024 (1.001-1.035) Urine Protein Trace (Neg - Trace) Urine Glucose (UA) 1+ A (Negative) Quality Measures Quality Measures sepsis Current suspected stage: sepsis Possible source: pulmonary Blood cultures ordered: yes Antibiotic ordered: Yes Advance care planning discussed with:: patient and spouse Medications Home Medications and Allergies Home Medications ?Medication ?Instructions ?Recorded ?Confirmed ?Type ferrous sulfate 325 mg (65 mg 325 mg PO QDAY 09/15/22 12/25/23 History iron) tablet vitamin B6-vitamin E-magnesium 1 tab PO QDAY 09/15/22 12/25/23 History tablet Allergies Allergy/AdvReac Type Severity Reaction Status Date / Time No Known Allergies Allergy Verified 09/15/22 10:12 Visit Medications Acetaminophen (Acetaminophen 325 Mg Tablet) 650 mg PO Q6H PRN PRN Reason: Mild Pain 1-3 or Fever>100.4 Stop: 01/24/24 05:32 Ceftriaxone Sodium/Dextrose (Rocephin/D5w 1gm Iv Premix) 50 mls @ 100 mls/hr IV QDAY SUZY Stop: 12/30/23 09:00 Azithromycin 500 mg/ Sodium (Chloride) 250 mls @ 250 mls/hr IV QDAY SUZY Stop: 12/30/23 09:00 Ondansetron HCl (Ondansetron Inj 2 Mg/Ml Inj 2 Ml) 4 mg IV Q6H PRN; Protocol PRN Reason: NAUSEA OR VOMITING Stop: 01/24/24 05:32 Pantoprazole Sodium (Pantoprazole Inj 40 Mg Vial) 40 mg IVP QDAY SUZY Stop: 01/24/24 08:59 Discontinued Medications Acetaminophen (Acetaminophen 325 Mg Tablet) 650 mg PO X1 ONE Stop: 12/24/23 22:07 Last Admin: 12/24/23 22:09 Dose: 650 mg Sodium Chloride (Ns) 2,259 mls @ 2,259 mls/hr 30 ml/kg infuse over 60 min (2259 ml) IV .Q1H ONE Stop: 12/24/23 23:00 Last Infusion: 12/24/23 23:10 Dose: Infused Ceftriaxone Sodium 1,000 mg/ (Sodium Chloride) 50 mls @ 100 mls/hr IV X1 ONE Stop: 12/25/23 03:08 Last Infusion: 12/25/23 03:30 Dose: Infused Assessment & Plan Assessment Patient is a 68 year old male with past medical history of CAD s/p stents, hx of hepatitis s/p treatment 2011, and hx of COVID who was admitted on 12/25/2023 for sepsis secondary to pneumonia and repeated episodes of hypoglycemia. #Sepsis Secondary to Pneumonia #CAP Pneumonia #Incidential finding of multiple propulmonary nodules Etiology: likely community acquired pneumonia DDx: given past medical history of CAD s/p stents, not on any medication, NV less likely troponin <0.02 but can not be ruled out. Denied SOB or Chest pain. Repeat Troponin AM. Repeat Troponin. Malignancy can not be ruled out given enlarged prostate, consider PSA vs pulmonary malignancy given history of smoking and nodules. Diagnostics: Vitals: T 102, HR 81, RR 20, BP 167/91, spo2 96 RA WBC 3.0, and 8.0 Procalcitonin 0.19, Lactic acid 1.6 Na 131 total bili 1.3, AST 43, ALT 14, Lipase 26 Troponin <0.02 EKG: Sinus Rhythm UA gluocse +, ketones Cxr: No active disease CT Chest (12/24/2023): Left lower lobe pneumonia, small pulmonary nodules left lung, follow-up chest imaging is needed to document clearing. Plan: Blood Culture UA and Urine Culture Ceftriazone 1 mg IV QDay (12/25/2023--) Azithromycin 500 mg PO CBC BMP A1c Repeat Troponin X1 AM #Alterned Mental Status #Hypoglycemia Given past medical history of sepsis secondary to pneumonia, hypoglycemia likely secondary to decrease oral intake and emesis. DDx: less likely secondary to DM, no past medical history and previous A1c below 6.5. consider C-peptide vs Stroke but less likely given no neural deficits. 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 Plan -Bedside glucose Q4 -Consider CT head -Cardiac Diet #hx of CAD s/p stents Denied any home medication for history of CAD. Denied hyperlipidemia or use atorvastatin. Denied HTN. Plan -consider A1c -Consider lipid panel #Incidental Finding of Prostatomegaly on CT Abdomen/Pelvis Given suspicious 3 cm nodule on prostate consider PSA. Plan -F/U outpatient PSA and follow-up transrectal prostate sonography -Consider Bladder scan if patient is not producing urine. Health Maintenance: Disp: Pt is currently admitted to floors for further management of sepsis secondary to pneumonia, awaiting blood culture FEN: Cardiac Diet DVT: compression device Code: Full Code - The patient's plan was discussed with attending Dr. Charan Klein MD PGY1 Internal Medicine Attending Provider Attestation/Addendum 68-year-old male patient with history of hepatitis C, coronary artery disease status post stent, COVID was brought to the ER because of altered mental status and weakness. His said that he was not able to make it to the bathroom earlier today. He was so weak. He was noted to be febrile. His blood sugar was low. Workup in the ER including a CT scan showed left lower lobe pneumonia. The patient has minimal cough no expectoration. He has had weight loss. He said he never felt better since he had a hepatitis see treatment in 2011. After that he had COVID which made him even weaker. Currently he denies chest pain. He is not dizzy. He is weak. He has poor appetite. The patient will be admitted for further workup. He will be given IV antibiotic for pneumonia. Continue to monitor blood glucose. [id number] evaluation was done in ER. Discussed with housestaff.
[2023-12-25] MEDS: AZITHROMYCIN 250 MG TABLET 500 MG PO (06:11)
[2023-12-25 07:40] LABS: Troponin I 1.811 ng/mL (0.0-0.045)
[2023-12-25 07:43] LABS: Anion Gap 3 (7-16); BUN/Creatinine Ratio 24 Ratio (12-20); Blood Urea Nitrogen 17 mg/dL (9-23); Calcium 7.7 mg/dL (8.3-10.6); Chloride 107 mMol/L (98-107); Creatinine (Component) 0.7 mg/dL (0.6-1.3); Estimated Creatinine Clearance 109.9 mL/min (>60); Glucose 107 mg/dL (74-106); Osmolality,Calculated 264 (275-295); Potassium 4.6 mMol/L (3.4-5.1); Sodium 131 mMol/L (136-145); eGFR > 60 See Note
[2023-12-25 08:00] LABS: Basophils # (Auto) 0.1 Thou/mm3 (0.0-0.2); Basophils % (Auto) 1 % (0-2.5); Eosinophils # (Auto) 0.2 Thou/mm3 (0.0-0.5); Eosinophils % (Auto) 3 % (0-10); Hemoglobin 10.3 g/dL (13.5-16.0); Immature Granulocytes % (Auto) 0 % (0-0); Immature Granulocytes Auto 0.01 Thou/mm3 (0.00-0.00); Lymphocytes # (Auto) 1.7 Thou/mm3 (1.0-4.8); Lymphocytes % (Auto) 31 % (10-50); Mean Corpuscular HGB Conc 35.5 g/dl (31.0-37.0); Mean Corpuscular Hemoglobin 29.1 pg (25.0-35.0); Mean Corpuscular Volume 82 fL (80-100); Monocytes # (Auto) 0.6 Thou/mm3 (0.0-0.8); Monocytes % (Auto) 11 % (0-12); Neutrophils % (Auto) 54 % (37-80); Nucleated Red Blood Cell % 0 /100 WBC (0); Platelet Count 109 Thou/mm3 (140-440); RDW Standard Deviation 38.7 fL (35.1-43.9); Red Blood Count 3.54 Miln/mm3 (4.50-5.90); White Blood Count 5.5 Thou/mm3 (3.8-10.6)
[2023-12-25 08:27] LABS: Magnesium 1.7 mg/dL (1.6-2.6)
[2023-12-25 08:34] LABS: Glucose Estimated Average 85 mg/dL (80-131); Hemoglobin A1C 4.6 % Hgb (4.8-6.0)
[2023-12-25] MEDS: PANTOPRAZOLE INJ 40 MG VIAL IVP (08:39)
[2023-12-25] MEDS: Aspirin 325 MG TABLET PO (08:40)
[2023-12-25] MEDS: CLOPIDOGREL BISULFATE 75 MG TABLET PO (08:40)
[2023-12-25 09:03] LABS: INR 1.1 (0.9-1.3); Partial Thromboplastin Time 36.1 Seconds (22.0-36.0); Prothrombin Time 12.4 Seconds (9.0-12.2)
[2023-12-25] MEDS: cefTRIAXone/D5w 1gm IV premix 50 ML IV (09:37)
[2023-12-25] MEDS: Heparin/D5w 25K 250 ML Ivpb 25,000 UNIT/250 ML BAG 8.981 UNIT IV (09:41)
[2023-12-25] MEDS: HEPARIN SOD INJ 5000 UNIT/ML VIAL 4000 UNIT IV (09:42)
--- NOTE | 2023-12-25 12:09 | PC.CC ---
Pt Efrem Mcdonough is a 68 yr old male admitted to hospitalist services for sepsis 2/2 to [facility]. LOAN OFFICER ASSISTANT CC met with pt at bedside to complete initial assessment. At time of encounter pt is noted to be alert and oriented to person, place and situation. Pt expressed understanding admission orders. Pt able to confirm demographic information. Pt resides at home [address] , with his Matt De La Rosa [phone]. Pt identifies his spouse as surrogate DM. At baseline pt does not require DME for support in ambulation. Pt reports being able to complete ADLs. Pt states he does not require supplemental O2 in the home. Pt is not diabetic and is not on dialysis. Pt is followed by Dr. Cesar Osborne for primary care. At time of D/c pt states he will return home with family providing transport. Pt reports that he has an Advance Directive in place.
--- NOTE | 2023-12-25 12:17 | ESPR_ITS ---
<Statement entered by Butch Zhou MD - 12/25/23 17:54> Senior Resident Attestation: I supervised/discussed management plan with resident physician Dr. Moore, and was involved in the care of this patient. I personally saw and examined the patient and discussed the assessment and plan with the entire medicine team, including my attending. I agree with the assessment and plan as documented. Patient's care was discussed with attending physician, Dr. Brennan Zhou MD PGY-3 Documentation for date of: 12/25/23 Subjective Subjective Interval history: Patient seen at bedside, patient is alert oriented x 3. Patient denies any chest pain currently. Patient's troponin increased from less than 0.02 -> 1.811. Repeat EKG is negative for any ST elevation Patient was given loading dose of aspirin and 75 mg Plavix Patient started on heparin drip Cardiology consulted Will continue to trend troponin every 6 hours Exam Vital Signs Temp Pulse Resp BP Pulse Ox O2 Del Method 98.1 F 70 9 L 114/71 100 Room Air 12/25/23 11:00 12/25/23 12:00 12/25/23 12:00 12/25/23 12:00 12/25/23 12:00 12/25/23 08:15 Narrative Exam GENERAL APPEARANCE: Patient is AOx3, generally well-appearing male in no acute distress. HEENT: NC, AT. MMM. EOMI, clear conjunctiva, oropharynx clear. NECK: Supple without lymphadenopathy. No stiffness or restricted ROM. HEART: Regular rate and regular rhythm, normal S1/S2, no m/r/g LUNGS: CTAB, moving air well. No crackles or wheezes are heard. ABDOMEN: Soft, nontender, nondistended with good bowel sounds heard. BACK: No CVAT, no obvious deformity. EXTREMITIES: Without cyanosis, clubbing or edema. NEUROLOGICAL: Grossly nonfocal. Alert and oriented, moving all 4 extremities. CN not formally tested but appear grossly intact. Skin: Warm and dry without any rash. Psych: Appropriate mood and affect Objective Labs 12/26/23 05:37 12/26/23 05:37 Labs: Laboratory Results - last 24 hr 12/24/23 12/24/23 12/25/23 22:04 22:05 07:40 WBC 8.0 D 5.5 RBC 3.91 L 3.54 L Hgb 11.5 L 10.3 L Hct 31.4 L 29.0 L MCV 80 82 MCH 29.4 29.1 MCHC 36.6 35.5 RDW Std Deviation 37.0 38.7 Plt Count 144 D 109 L D Neut % (Auto) 58 54 Lymph % (Auto) 29 31 [place] % (Auto) 10 11 Eos % (Auto) 3 3 Baso % (Auto) 1 1 Neut # (Auto) 4.6 3.0 Lymph # (Auto) 2.3 1.7 [place] # (Auto) 0.8 0.6 Eos # (Auto) 0.2 0.2 Baso # (Auto) 0.1 0.1 Immature Gran # (Auto) 0.02 H 0.01 H Absolute Nucleated RBC 0.00 0.00 Immature Gran % 0 0 Nucleated RBC % 0 0 PT 12.4 H INR 1.1 APTT 36.1 H Sodium 131 L 131 L Potassium 4.3 D 4.6 Chloride 100 107 Carbon Dioxide 24.9 21.0 Anion Gap 6 L 3 L BUN 20 17 Creatinine 1.0 0.7 Estim Creat Clear Calc 76.9 109.9 eGFR > 60 > 60 BUN/Creatinine Ratio 20 24 H Glucose [address] Glu mg/dL 85 Hemoglobin A1c 4.6 L Calculated Osmolality 265 L 264 L Lactic Acid 1.6 Calcium 9.0 7.7 L Corrected Calcium 9.0 Magnesium 1.7 Total Bilirubin 1.3 H AST 43 H ALT 14 Alkaline Phosphatase 72 Troponin I < 0.020 1.811 H* D B-Natriuretic Peptide 39 Total Protein 6.4 Albumin 4.1 Globulin 2.3 Albumin/Globulin Ratio 1.8 Lipase 26 Procalcitonin 0.19 Ur Collection Type Catheter Urine Color Yellow Urine Clarity Clear Urine pH 5.5 Ur Specific [place] 1.024 Urine Protein Trace Urine Glucose (UA) 1+ A Urine Ketones 1+ A Urine Blood 1+ A Urine Nitrite Negative Urine Bilirubin Negative Urine Urobilinogen (Auto) Negative Ur Leukocyte Esterase Negative Urine RBC 9 H Urine WBC 3 Ur Squamous Epith Cells < 1 Urine Bacteria None Ur Culture Indicated? Not Indicated Urine Opiates Screen Negative Urine Fentanyl Screen Negative Ur Barbiturates Screen Negative U Amphetamin/Meth Scrn Negative U Benzodiazepines Scrn Negative U Cocaine Metab Screen Negative U Marijuana (THC) Screen Negative Quality Measures Quality Measures sepsis Current suspected stage: ruled out Possible source: pulmonary Blood cultures ordered: yes Antibiotic ordered: Yes Advance care planning discussed with:: patient Assessment & Plan Assessment Current Active Medications: Generic Name Dose Route Start Last Admin Trade Name Freq PRN Reason Stop Dose Admin Acetaminophen 650 mg 12/25/23 05:33 Acetaminophen 325 Mg Tablet PO 01/24/24 05:32 Q6H PRN Mild Pain 1-3 or Fever>100.4 Aspirin 81 mg 12/26/23 09:00 Aspirin Ec 81 Mg Tabec PO 01/25/24 08:59 QDAY SUZY Azithromycin 500 mg 12/25/23 06:00 12/25/23 06:11 Azithromycin 250 Mg Tablet PO 12/30/23 05:59 500 mg QDAY SUZY Administration Ceftriaxone Sodium/Dextrose 50 mls @ 100 mls/hr 12/25/23 09:00 12/25/23 10:11 Rocephin/D5w 1gm Iv Premix IV 01/01/24 08:59 Infused QDAY SUZY Infusion Heparin Sodium/Dextrose 25,000 unit in 250 mls @ 8.981 mls/hr 12/25/23 09:15 12/25/23 09:41 Heparin In D5w Ivpb IV 01/08/24 09:14 12 units/kg/hr .Q24H SUZY 8.981 mls/hr Administration Protocol 12 UNITS/KG/HR Ondansetron HCl 4 mg 12/25/23 05:33 Ondansetron Inj 2 Mg/Ml Inj 2 Ml IV 01/24/24 05:32 Q6H PRN NAUSEA OR VOMITING Protocol Pantoprazole Sodium 40 mg 12/25/23 09:00 12/25/23 08:39 Pantoprazole Inj 40 Mg Vial IVP 01/24/24 08:59 40 mg QDAY SUZY Administration Plan Assessment and Plan: Summary: Patient is a 68 year old male with past medical history of CAD s/p stents, hx of hepatitis s/p treatment 2011, and hx of COVID who was admitted on 12/25/2023 for sepsis secondary to pneumonia and repeated episodes of hypoglycemia. # NSTEMI type I versus type II # History of CAD status post stents 2017 not on aspirin or Plavix ? Patient endorsed only mild chest discomfort while vomiting yesterday. He denied any typical chest pain or shortness of breath. - EKG showed sinus rhythm with T wave inversions in lead V1 and V2. ? Initial troponin I was negative morning troponin I went up to 1.81. Plan: ? Patient was given loading dose heparin, started on heparin GGT ? Patient was given aspirin and Plavix bolus x 1 and heparin drip was started ? Continue statin therapy ? Monitor for chest pain ? Follow-up on echocardiogram - Trend troponins every 6 hours - Consulted cardiology, appreciate recommendations - Will keep potassium more than 4, magnesium more than 2 #Acute respiratory distress secondary to Pneumonia #Community-acquired versus aspiration pneumonia #Incidential finding of multiple pulmonary nodules Patient presented initially to the ED with shortness of breath cough and generalized weakness. Patient was later brought in by ambulance for hypoglycemia and altered mental status. Patient did have multiple episodes of vomiting outpatient, suspicion of aspiration pneumonia. Patient was febrile on presentation to the ED with temperature of 102 F. Heart rate 81, respiratory rate 20,WBC count 8.0 Patient has history of coccidiomycosis, possible cause of pulmonary nodules Procalcitonin 0.19, Lactic acid 1.6 CT Chest (12/24/2023): significant for Left lower lobe pneumonia, small pulmonary nodules left lung. Plan: Continue ceftriaxone and azithromycin Follow blood cultures Follow urine culture Follow CBC CMP in a.m. #Acute metabolic encephalopathy #Altered ed Mental Status #Hypoglycemia #Gastritis Patient had multiple episodes of emesis, reported decreased p.o. intake, hypoglycemia likely secondary to decrease oral intake and emesis. Patient has no neurodeficits, denies losing consciousness, denies hitting head, denies falling down. 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 CT scan of head was unremarkable Hemoglobin A1c 4.6 Plan -Bedside glucose Q4H -Hypoglycemia protocol in place -Ordered insulin, proinsulin, C-peptide and insulin receptor antibodies -Continue Protonix 40 IV push -Zofran as needed for vomiting -Follow outpatient PCP with results #Incidental Finding of Prostatomegaly on CT Abdomen/Pelvis Given suspicious 3 cm nodule on prostate consider PSA. Plan -F/U outpatient PSA and follow-up transrectal prostate sonography -Consider Bladder scan if patient is not producing urine. DVT prophylaxis: Heparin drip GI prophylaxis: IV Protonix Diet: Cardiac diet Lines: Peripheral IV Code status: Full code Case discussed with Attending Dr. Amin and Dr. Zhou PGY3. Jr Moore PGY1 Attending Provider Attestation/Addendum I have discussed and was present for the essential components of the history, physical examination, diagnosis, and treatment plan with the resident. I agree with the patient's care as documented by the resident and amended herein by me. Oren Amin DO. Although this document has been carefully reviewed, there may still be some phonetic and other typographical errors. These errors are purely grammatical due to imperfections in the software program and should not be construed in any way to compromise the substance of the patient's medical care during this visit.
--- NOTE | 2023-12-25 12:49 | PD.RESCONSUL ---
HPI Data of Consult Consult date: 12/25/23 Requesting Physician: Simone Farrar MD Admitting Provider: Simone Farrar MD Attending Provider: Simone Farrar MD Primary Care Provider: Physician No Primary/Family Consult Narrative Reason for consult: Elevated troponin I and ? Chest discomfort History of present illness: This patient 68-year-old male with past medical history of CAD s/p stents 10 years ago, history of hep C status posttreatment 2011, and history of COVID not oxygen dependent. He presented to the ED with chief complaint of progressive weakness and hypoglycemia blood glucose 33 per paramedics. He also reported to have headaches with vomiting that started on Wednesday. He denied any hematemesis. He also endorsed having decreased oral intake consuming only 1 cracker. He denied any chest pain or shortness of breath. Patient's stated that patient has been feeling weak since Wednesday and requiring assistance to go restroom. He also has increased urinary hesitancy for several years. In the ED, patient was febrile temperature 102, heart rate 81, respiratory rate 20, slightly hypertensive blood pressure 167/91, saturating 96% on room air. Labs revealed stable white count. Procalcitonin 0.19. Lactic acidosis 1.6. Troponin I was negative. T. bili 1.3, AST 43. Chest x-ray showed no active disease. CT chest was concerning for left lower lobe pneumonia, small pulmonary nodules left lung. CT abdomen pelvis showed primary hepatocellular disease versus cirrhosis, mild cystitis pattern, prostatomegaly enhancing 3 mm prostate nodule. EKG showed sinus rhythm with some T wave inversions in lead V1 and V2. PMH: As above PSH: CAD s/p stents, EGD 2022: GERD with esophagitis, colonoscopy 2022: Diverticulosis and hemorrhoids Home medications denied taking any home medications SH: IV heroin use, former smoker 5 to 6 cigarettes/day, quit 2003 Allergies: NKDA Cardiology team consulted for concern for chest discomfort and elevated troponin I. Patient was seen and examined at the bedside. Patient reported that he has been having nausea and vomiting along with generalized weakness from past couple of days. He did not endorse any shortness of breath or chest pain. EKG showed sinus rhythm with some T wave inversions in lead V1 and V2. Morning labs reveals normocytic anemia, mild thrombocytopenia. Electrolyte panel showed mild hyponatremia sodium 131. Blood glucose 107. A1c 4.6. U tox negative. Chest CT showed left lower lobe pneumonia, small pulmonary nodules left lung., Primary hepatocellular disease. Gastritis pattern. Initial troponin I were negative however morning troponin I elevated to 1.8 down trended to 1.049. Patient did follow, Dr Celaya as outpatient in 2017 when he received stents and echocardiogram showed EF 71%. Patient lost follow-up with oncology account specialist. Primary team administered aspirin and Plavix bolus and started. Although patient has a history of CAD post stents he does not seem to have NSTEMI type I therefore recommended to discontinue heparin drip and will follow-up on echocardiogram results. cc:: cc: Simone Farrar MD Review of Systems Review of Systems Systems Reviewed: All systems reviewed, normal except as documented Past Medical History Past Medical History NEUROLOGIC: Negative Neurological Disorders or Seizures CARDIAC: Positive Cardiac Disorders, Coronary Artery Disease and Hypercholesterolemia (IN THE PAST. NO MEDS AT THIS TIME); Negative Congestive Heart Failure RESPIRATORY: Negative Chronic Obstructive Pulmonary Disease (COPD) or Asthma GASTROINTESTINAL: Positive Gastrointestinal Disorders (HEPATITIS C. TREATMENT COMPLETED ON 2011) and Hepatitis GENITOURINARY: Negative Genitourinary Disorders or Renal Disease MUSCULOSKELETAL: Positive Osteoporosis; Negative Musculoskeletal Disorders ENDOCRINE: Negative Diabetes Mellitus Type 1 or Diabetes Mellitus Type 2 HEMATOLOGIC: Positive Anemia; Negative Sickle Cell Disease OTHER HISTORY: Negative Falls, Blood Transfusions, Blood Transfusion Reaction, Anesthesia Reactions or Cancer Family History FAMILY HISTORY: Positive Family Cardiac Disorders Surgical History SURGICAL: Positive Cardiac Surgery and Coronary Stent Social History SMOKING STATUS: Never smoker SECOND HAND EXPOSURE: No Exam Vital Signs Temp Pulse Resp BP Pulse Ox O2 Del Method 98.1 F 70 16 114/71 100 Room Air 12/25/23 11:00 12/25/23 12:00 12/25/23 12:00 12/25/23 12:00 12/25/23 12:12/25/23 08:15 Narrative Exam GENERAL APPEARANCE: Patient is AOx3, generally well-appearing male in no acute distress. HEENT: NC, AT. MMM. EOMI, clear conjunctiva, oropharynx clear. NECK: Supple without lymphadenopathy. No stiffness or restricted ROM. HEART: Regular rate and regular rhythm, normal S1/S2, no m/r/g LUNGS: CTAB, moving air well. No crackles or wheezes are heard. ABDOMEN: Soft, nontender, nondistended with good bowel sounds heard. BACK: No CVAT, no obvious deformity. EXTREMITIES: Without cyanosis, clubbing or edema. NEUROLOGICAL: Grossly nonfocal. Alert and oriented, moving all 4 extremities. CN not formally tested but appear grossly intact. Observed to ambulate with normal gait. Skin: Warm and dry without any rash. Psych: Appropriate mood and affect Results Labs 12/25/23 07:40 12/25/23 07:40 Labs: Short CBC 12/24/23 12/25/23 Range/Units 22:05 07:40 WBC 8.0 D 5.5 (3.8-10.6) Thou/mm3 Hgb 11.5 L 10.3 L (13.5-16.0) g/dL Hct 31.4 L 29.0 L (41.0-53.0) % Plt Count 144 D 109 L D (140-440) Thou/mm3 BMP 12/24/23 12/25/23 22:05 07:40 Sodium 131 L 131 L Potassium 4.3 D 4.6 Chloride 100 107 Carbon Dioxide 24.9 21.0 BUN 20 17 Creatinine 1.0 0.7 Glucose 94 107 H Calcium 9.0 7.7 L Cardiac Enzymes 12/24/23 12/25/23 Range/Units 22:05 07:40 Troponin I < 0.020 1.811 H* D (0.0-0.045) ng/mL Liver Function 12/24/23 Range/Units 22:05 Total Bilirubin 1.3 H (0.3-1.2) mg/dL AST 43 H (0-34) U/L ALT 14 (10-49) U/L Alkaline Phosphatase 72 (46-116) U/L Albumin 4.1 (3.4-4.8) gm/dL Urine 12/24/23 Range/Units 22:04 Urine Color Yellow (Lt Yel-Yel) Urine Clarity Clear (Clear/Hazy) Urine pH 5.5 (5.0-7.0) Ur Specific [place] 1.024 (1.001-1.035) Urine Protein Trace (Neg - Trace) Urine Glucose (UA) 1+ A (Negative) Quality Measures Quality Measures sepsis Current suspected stage: sepsis Possible source: pulmonary Blood cultures ordered: yes Antibiotic ordered: Yes Advance care planning discussed with:: patient Medications Home Medications and Allergies Home Medications ?Medication ?Instructions ?Recorded ?Confirmed ?Type ferrous sulfate 325 mg (65 mg 325 mg PO QDAY 09/15/22 12/25/23 History iron) tablet vitamin B6-vitamin E-magnesium 1 tab PO QDAY 09/15/22 12/25/23 History tablet Allergies Allergy/AdvReac Type Severity Reaction Status Date / Time No Known Allergies Allergy Verified 09/15/22 10:12 Visit Medications Acetaminophen (Acetaminophen 325 Mg Tablet) 650 mg PO Q6H PRN PRN Reason: Mild Pain 1-3 or Fever>100.4 Stop: 01/24/24 05:32 Aspirin (Aspirin Ec 81 Mg Tabec) 81 mg PO QDAY [facility] Stop: 01/25/24 08:59 Azithromycin (Azithromycin 250 Mg Tablet) 500 mg PO QDAY [facility] Stop: 12/30/23 05:59 Last Admin: 12/25/23 06:11 Dose: 500 mg Ceftriaxone Sodium/Dextrose (Rocephin/D5w 1gm Iv Premix) 50 mls @ 100 mls/hr IV QDAY [facility] Stop: 01/01/24 08:59 Last Infusion: 12/25/23 10:11 Dose: Infused Heparin Sodium/Dextrose (Heparin In D5w Ivpb) 25,000 unit in 250 mls @ 8.981 mls/hr IV .Q24H [facility]; Protocol Stop: 01/08/24 09:14 Last Admin: 12/25/23 09:41 Dose: 12 units/kg/hr, 8.981 mls/hr Ondansetron HCl (Ondansetron Inj 2 Mg/Ml Inj 2 Ml) 4 mg IV Q6H PRN; Protocol PRN Reason: NAUSEA OR VOMITING Stop: 01/24/24 05:32 Pantoprazole Sodium (Pantoprazole Inj 40 Mg Vial) 40 mg IVP QDAY [facility] Stop: 01/24/24 08:59 Last Admin: 12/25/23 08:39 Dose: 40 mg Discontinued Medications Acetaminophen (Acetaminophen 325 Mg Tablet) 650 mg PO X1 ONE Stop: 12/24/23 22:07 Last Admin: 12/24/23 22:09 Dose: 650 mg Aspirin (Aspirin 325 Mg Tablet) 325 mg PO X1 ONE Stop: 12/25/23 07:50 Last Admin: 12/25/23 08:40 Dose: 325 mg Clopidogrel Bisulfate (Clopidogrel Bisulfate 75 Mg Tablet) 75 mg PO X1 ONE Stop: 12/25/23 07:50 Last Admin: 12/25/23 08:40 Dose: 75 mg Heparin Sodium (Porcine) (Heparin Sod Inj 5000 Unit/Ml Vial) 4,000 unit IV X1 ONE; Protocol Stop: 12/25/23 09:03 Last Admin: 12/25/23 09:42 Dose: 4,000 unit Sodium Chloride (Ns) 2,259 mls @ 2,259 mls/hr 30 ml/kg infuse over 60 min (2259 ml) IV .Q1H ONE Stop: 12/24/23 23:00 Last Infusion: 12/24/23 23:10 Dose: Infused Ceftriaxone Sodium 1,000 mg/ (Sodium Chloride) 50 mls @ 100 mls/hr IV X1 ONE Stop: 12/25/23 03:08 Last Infusion: 12/25/23 03:30 Dose: Infused Ceftriaxone Sodium/Dextrose (Rocephin/D5w 1gm Iv Premix) 50 mls @ 100 mls/hr IV QPM SUZY Stop: 01/01/24 20:59 Azithromycin 500 mg/ Sodium (Chloride) 250 mls @ 250 mls/hr IV QDAY SUZY Stop: 12/30/23 09:00 Assessment & Plan Plan This patient 68-year-old male with past medical history of CAD s/p stents 10 years ago, history of hep C status posttreatment 2011, and history of COVID not oxygen dependent. He presented to the ED with chief complaint of progressive weakness and hypoglycemia blood glucose 33 per paramedics. He also reported to have headaches with vomiting that started on Wednesday. Cardiology consulted given elevated troponin I and mild chest discomfort during emesis episode. # Possible NSTEMI type II, likely supply demand ischemia # History of CAD status post stents 2016 not on aspirin or Plavix ? Patient endorsed only mild chest discomfort while vomiting yesterday. He denied any typical chest pain or shortness of breath. EKG showed sinus rhythm with T wave inversions in lead V1 and V2. ? Initial troponin I was negative morning troponin I went up to 1.81 downtrended to 1.049. Chest x-ray showed no active disease. A1c 4.6U tox was negative. ?Troponin I downtrending Plan: ? Recommended to discontinue heparin drip as history not convincing for ACS symptoms ? Follow-up on echocardiogram ? Patient was given aspirin and Plavix bolus x 1 ? Continue statin therapy ? Monitor for signs and symptoms of ACS ? Continue treating underlying infection with IV antibiotic therapy and monitor blood sugars closely ? Follow-up on echocardiogram ? Daily labs and coagulation panel ? Replete electrolytes as necessary ? Monitor vitals ? Stop trending troponin I Other active problems: # Sepsis likely secondary to pneumonia # Community-acquired pneumonia # Incidental finding of multiple pulmonary nodules # Incidental findings of prostatomegaly on CT abdomen pelvis # Acute encephalopathy likely due to hypoglycemia: Resolved # Hx of hepatitis C s/p treatment 2011 # Normocytic anemia # Thrombocytopenia # Electrolyte disturbance # Mild hyponatremia and hypomagnesemia Rest of the management as per primary care team. Thank you very much for consulting cardiology team. Recommended to discontinue heparin drip. Most likely patient developed NSTEMI type II related to supply demand ischemia. Will likely follow-up on echocardiogram. Patient was seen and discussed with oncology account specialist, Dr. Yomi Higgins MD, PGY 2
[2023-12-25 13:18] LABS: Troponin I 1.049 ng/mL (0.0-0.045)
[2023-12-25] MEDS: Magnesium Sulfate 2 GM Ivpb 2 GM/50 ML BAG IV (15:42)
[2023-12-25 16:06] LABS: Partial Thromboplastin Time 106.9 Seconds (22.0-36.0)
[2023-12-25 16:48] LABS: Misc Send Out* See Sep Rpt
[2023-12-25 16:57] LABS: Beta Hydroxybutyrate 0.9 mmol/L (<0.6)
[2023-12-25] MEDS: ATORVASTATIN CALCIUM 20 MG TABLET 40 MG PO (20:45)
[2023-12-25] MEDS: ACETAMINOPHEN 325 MG TABLET 650 MG PO (23:35)
[2023-12-26] VITALS: BP 121/74; PULSE 70; PULSE 72; RESP 17; TEMP 37.6; O2SAT 98
[2023-12-26 01:55] VITALS: PULSE 71; RESP 18; RESP 94
[2023-12-26 04:00] VITALS: BP 115/57; PULSE 67; PULSE 69; RESP 17; TEMP 36.3; O2SAT 97
[2023-12-26 05:58] LABS: Basophils % (Auto) 1 % (0-2.5); Eosinophils # (Auto) 0.3 Thou/mm3 (0.0-0.5); Eosinophils % (Auto) 8 % (0-10); Hematocrit 27.7 % (41.0-53.0); Hemoglobin 10.1 g/dL (13.5-16.0); Immature Granulocytes % (Auto) 0 % (0-0); Immature Granulocytes Auto 0.01 Thou/mm3 (0.00-0.00); Lymphocytes # (Auto) 1.4 Thou/mm3 (1.0-4.8); Lymphocytes % (Auto) 37 % (10-50); Mean Corpuscular HGB Conc 36.5 g/dl (31.0-37.0); Mean Corpuscular Hemoglobin 29.4 pg (25.0-35.0); Mean Corpuscular Volume 81 fL (80-100); Monocytes # (Auto) 0.4 Thou/mm3 (0.0-0.8); Monocytes % (Auto) 12 % (0-12); Neutrophils # (Auto) 1.6 Thou/mm3 (1.8-7.7); Neutrophils % (Auto) 42 % (37-80); Nucleated Red Blood Cell % 0 /100 WBC (0); Platelet Count 87 Thou/mm3 (140-440); RDW Standard Deviation 36.6 fL (35.1-43.9); Red Blood Count 3.44 Miln/mm3 (4.50-5.90); White Blood Count 3.8 Thou/mm3 (3.8-10.6)
[2023-12-26 06:00] VITALS: BMI 21.0
[2023-12-26 06:33] VITALS: PULSE 69; RESP 12; RESP 92
[2023-12-26 06:35] LABS: Anion Gap 5 (7-16); BUN/Creatinine Ratio 18 Ratio (12-20); Blood Urea Nitrogen 9 mg/dL (9-23); Calcium 8.2 mg/dL (8.3-10.6); Carbon Dioxide 24.9 mMol/L (20.0-31.0); Chloride 101 mMol/L (98-107); Creatinine (Component) 0.5 mg/dL (0.6-1.3); Estimated Creatinine Clearance 140.8 mL/min (>60); Glucose 87 mg/dL (74-106); Osmolality,Calculated 260 (275-295); Potassium 3.8 mMol/L (3.4-5.1); Sodium 131 mMol/L (136-145); eGFR > 60 See Note
[2023-12-26 08:00] VITALS: BP 94/62; PULSE 67; PULSE 68; RESP 20; TEMP 36.5; O2SAT 98
[2023-12-26] MEDS: PANTOPRAZOLE INJ 40 MG VIAL IVP (08:33)
[2023-12-26] MEDS: ASPIRIN EC 81 MG TABEC PO (08:34)
[2023-12-26] MEDS: AZITHROMYCIN 250 MG TABLET 500 MG PO (08:34)
[2023-12-26] MEDS: cefTRIAXone/D5w 1gm IV premix 50 ML IV (08:34)
[2023-12-26 12:00] VITALS: BP 93/66; PULSE 63; PULSE 66; RESP 17; TEMP 36.3; O2SAT 97
--- NOTE | 2023-12-26 12:50 | ESDS_ITS ---
Planned Discharge Date 12/26/23 DS: Providers Provider Date of admission: 12/25/23 05:33 Primary care physician: Physician No Primary/Family Admitting Provider: Simone Farrar MD Attending Provider on Admission: Simone Farrar MD Consults: 12/25/23 07:50 Consult to Cardiology Routine Comment: Consulting Provider: Minnie Celaya Attending Provider on DC: Rick Amin DO Discharging Provider: Rick Amin DO Anticipated date of discharge: 12/26/23 DS: Diagnosis Problem List Completed Was Problem List Reviewed/Reconciled?: Yes Hospital Course Hospital Course Hospital course: Hospital Course: Mr. Varma is a 68-year-old male with past medical history of coronary artery disease status post stents 10 years ago, history of hepatitis C status posttreatment and history of intravenous drug use who presented to [facility] with a chief complaint of altered mental status due to hypoglycemia. Patient was given D5W, hypoglycemia was corrected, CT scan of chest was significant for findings of left lower lobe pneumonia, patient was started on IV antibiotics. Patient's troponin increased from less than 0.02 to 1.811, cardiology was consulted, patient was given loading dose aspirin, 75 mg of Plavix and was started on heparin drip, EKG was negative for ST elevation and patient denied chest pain. Eventually the troponins down trended and heparin GGT was discontinued, patient's respiratory distress improved with IV antibiotics and patient had no episodes of hypoglycemia. Further plan is to discharge patient home and follow-up with PCP in 1 week with results of hypoglycemia workup (proinsulin, insulin, C-peptide and insulin receptor antibody levels) patient advised to follow-up with corporate human resources manager Dr. Minnie Celaya outpatient for echocardiogram in 1 to 2 weeks. Patient will be discharged on oral amoxicillin and azithromycin, patient encouraged to increase oral intake and use protein supplements. Patient is stable for discharge. Discharge Diagnosis: #Acute respiratory distress secondary to Pneumonia #Community-acquired versus aspiration pneumonia #NSTEMI type II demand ischemia #History of CAD status post stents 2017 not on aspirin or Plavix #Incidential finding of multiple pulmonary nodules #Acute metabolic encephalopathy #Altered ed Mental Status #Hypoglycemia #Gastritis #Incidental Finding of Prostatomegaly on CT Abdomen/Pelvis Case discussed with Attending Dr. Amin. Jr Moore PGY1 Time Spent with Patient Time attestation: Total time spent providing and/or coordinating discharge services: More than 30 minutes Time spent: Greater than 30 minutes Exam Vital Signs Temp Pulse Resp BP Pulse Ox O2 Del Method 97.4 F 66 17 93/66 97 Room Air 12/26/23 12:00 12/26/23 12:00 12/26/23 12:00 12/26/23 12:00 12/26/23 12:00 12/26/23 12:00 Narrative Exam GENERAL APPEARANCE: Patient is AOx3, generally well-appearing male in no acute distress. HEENT: NC, AT. MMM. EOMI, clear conjunctiva, oropharynx clear. NECK: Supple without lymphadenopathy. No stiffness or restricted ROM. HEART: Regular rate and regular rhythm, normal S1/S2, no m/r/g LUNGS: CTAB, moving air well. No crackles or wheezes are heard. ABDOMEN: Soft, nontender, nondistended with good bowel sounds heard. BACK: No CVAT, no obvious deformity. EXTREMITIES: Without cyanosis, clubbing or edema. NEUROLOGICAL: Grossly nonfocal. Alert and oriented, moving all 4 extremities. CN not formally tested but appear grossly intact. Skin: Warm and dry without any rash. Psych: Appropriate mood and affect Discharge Plan Plan Patient Disposition: HOME (Self Care) Patient condition on transfer: Stable Care Plan Goals: Continue Amoxicillin for five days for pneumonia. Take aspirin 81 mg daily. Eat high protein diet, use Ensure supplement discharge or other Follow up with PCP with Insulin, Pro-Insulin, Insulin antibodies and C-peptide levels outpatient in 1 week. Follow-up with corporate human resources manager in 1 week. Obtain echocardiogram outpatient. Return to emergency department if symptoms worsen. Prescriptions/Referrals Prescriptions/Med Rec: New atorvastatin 20 mg Tablet 20 mg PO HS 30 Days Qty: 30 0RF aspirin 81 mg Tablet,Delayed Release (Dr/Ec) 81 mg PO QDAY 30 Days Qty: 30 3RF amoxicillin 500 mg capsule 500 mg PO Q12H Qty: 10 0RF pantoprazole 20 mg tablet,delayed release (DR/EC) 20 mg PO QDAY Qty: 14 0RF Ensure MAX Protein Liquid 1 ea PO BID Qty: 3960 0RF azithromycin 250 mg tablet 250 mg PO QDAY 5 Days Qty: 5 0RF Rx Instructions: In addition to amoxicillin already prescribed Continued ondansetron 4 mg tablet,disintegrating 4 mg PO Q8H Qty: 10 0RF ferrous sulfate 325 mg (65 mg iron) Tablet 325 mg PO QDAY vitamin B6-vitamin E-magnesium Tablet 1 tab PO QDAY Referrals: No Primary/Family,Physician [Primary Care Provider] - Patient/Caregiver Discharge Instructions Other Discharge Activity Instructions:: Continue Amoxicillin and azithromycin for five days for pneumonia. Eat high protein diet, use Ensure supplement discharge or other Follow up with PCP with Insulin, Pro-Insulin, Insulin antibodies and C-peptide levels outpatient in 1 week. Follow-up with corporate human resources manager in 1 week. Obtain echocardiogram outpatient. Continue aspirin 81 mg daily. Return to emergency department if symptoms worsen. Recommendation to follow-up with an video conference specialist, obtain referral from PCP. Other Discharge Diet Instructions: High-protein diet, eat regular meals, recommended supplements for diet like Ensure. Education Materials: Hypoglycemia (Low Blood Sugar), Preventing Pneumonia Print Language: Jordanian Stand Alone Forms: Charley Award Info., Patient Portal Info Letter, Work/Release Restrictions Discharge Order Discharge Orders: Discharge (Routine); Ordered 12/26/23 Ordered By: Jr Moore Quality Discharge Quality Measures VTE prophylaxis Attestestation MD Attestation I have discussed and was present for the essential components of the discharge history, physical examination, diagnosis, and discharge treatment plan with the resident. I agree with the patient's discharge care as documented by the resident and amended herein by me. Oren Amin DO. The patient understood all discharge instructions, all questions were answered satisfactorily. The patient was instructed to return to the Emergency Department is symptoms worsened or persisted. Patient will be discharged with a course of amoxicillin and azithromycin for an additional 5 days. Patient is to follow-up with cardiology within 7 to 10 days of discharge, can obtain echocardiogram at that time. We also ordered studies for the patient's recurrent hypoglycemia however results will likely not be back for several days, he can follow results with his primary care provider. Questionable history of type 2 diabetes documented in chart, will need further workup if not done already. The patient was stable, afebrile, tolerating p.o. intake and ambulatory at time of discharge. Although this document has been carefully reviewed, there may still be some phonetic and other typographical errors. These errors are purely grammatical due to imperfections in the software program and should not be construed in any way to compromise the substance of the patient's medical care during this visit.
--- NOTE | 2023-12-26 21:39 | ESPR_ITS ---
RE: FELI NORMAN : 1955 DATE OF SERVICE: 12/26/2023 Feli is a 68-year-old male admitted to the hospital with headache and vague symptoms and mild troponin elevation, has come down, now doing fairly well and wants to go home. Does not complain of any chest pain, shortness of breath. EKG findings are unremarkable. His troponin peaked at only 1. PHYSICAL EXAMINATION: Vital Signs: Blood pressure 120/60, pulse rate is 70. Neck: Supple. No JVD. Lungs: Decreased breath sounds. No rales, rhonchi. Heart: S1, S2 regular. No gallops. Abdomen: Thin and soft. Extremities: No edema. LABORATORY DATA: CBC is normal. Troponin was 1.0. Chemistry panel normal. ASSESSMENT: 1. Atypical symptoms of migraine headaches. 2. Mild troponin elevation, possibly type 2 troponin with a known history of coronary artery disease. RECOMMENDATIONS: Continue medical management. Schedule the patient for a followup as an outpatient for cardiac workup. DT: 20:53:27 TT: 21:37:00 Ref: [id number] - TID: [id number]
[2023-12-31 06:20] LABS: C-Peptide* 0.16 ng/mL (0.80-3.85)
== END 2023-12-26 13:18 | disposition home or self-care (01) ==
LOC: SERX 21:58 → SERHOLD 12-25 06:05 → S2NX 12-25 16:00
PROVIDERS: Student in an Organized Health Care Education/Training Program; Admitting Provider Internal Medicine; Emergency Provider Emergency Medicine; Visit Provider Internal Medicine
DX: J18.9 Pneumonia, unspecified organism (principal); E87.20 Acidosis, unspecified; E87.1 Hypo-osmolality and hyponatremia; E83.42 Hypomagnesemia; E78.00 Pure hypercholesterolemia, unspecified; D64.9 Anemia, unspecified; G43.909 Migraine, unspecified, not intractable, without status migrainosus; G93.41 Metabolic encephalopathy; I21.A1 Myocardial infarction type 2; I25.10 Atherosclerotic heart disease of native coronary artery without angina pectoris; K29.70 Gastritis, unspecified, without bleeding; M81.0 Age-related osteoporosis without current pathological fracture; N30.90 Cystitis, unspecified without hematuria; N40.3 Nodular prostate with lower urinary tract symptoms; Z95.5 Presence of coronary angioplasty implant and graft; Z87.891 Personal history of nicotine dependence; Z86.19 Personal history of other infectious and parasitic diseases; Z87.19 Personal history of other diseases of the digestive system; Z86.16 Personal history of COVID-19; Z82.49 Family history of ischemic heart disease and other diseases of the circulatory system; R06.03 Acute respiratory distress; R91.8 Other nonspecific abnormal finding of lung field; E16.2 Hypoglycemia, unspecified; N40.0 Benign prostatic hyperplasia without lower urinary tract symptoms
CPT/HCPCS: 36415; 71045; 71260; 74177; 80048; 80053; 80307; 81001; 82010; 82533; 83036; 83525; 83605; 83690; 83735; 83880; 84145; 84206; 84484; 84681; 85025; 85610; 85730; 86337; 87040; 87086; 87811; 93005; 96361; 96365; 99285; A4649; G0378; J0696; J1643; J1644; J2470; J3475; J7030; J7050; Q9967; A9270

== ENCOUNTER 2024-01-31 06:48 | Day surgery (SDC) | payer MEDICARE, SELFPAY ==
--- NOTE | 2024-01-28 00:01 | EKG_ITS ---
[facility] Test Date: 2024-01-28 Pat Name: FELI NORMAN Department: Room: - Gender: Male City Administrator: RT STUDENT : 1955 Requested By: Minnie Bobo Order Number: [id number] Reading MD: Minnie Bobo Measurements Intervals [place] Rate: 61 P: 64 TN: 191 QRS: 62 QRSD: 98 T: 48 QT: 467 QTc: 474 Interpretive Statements SINUS RHYTHM PROLONGED QT INTERVAL Compared to ECG 12/24/2023 23:27:03 Prolonged QT interval now present T-wave abnormality no longer present /store/S0/[id number]/[id number].pdf
[2024-01-28 11:47] LABS: Basophils # (Auto) 0.1 Thou/mm3 (0.0-0.2); Basophils % (Auto) 1 % (0-2.5); Eosinophils # (Auto) 0.4 Thou/mm3 (0.0-0.5); Eosinophils % (Auto) 7 % (0-10); Hematocrit 34.2 % (41.0-53.0); Hemoglobin 12.1 g/dL (13.5-16.0); Immature Granulocytes % (Auto) 0 % (0-0); Immature Granulocytes Auto 0.01 Thou/mm3 (0.00-0.00); Lymphocytes # (Auto) 2.7 Thou/mm3 (1.0-4.8); Lymphocytes % (Auto) 44 % (10-50); Mean Corpuscular HGB Conc 35.4 g/dl (31.0-37.0); Mean Corpuscular Hemoglobin 29.5 pg (25.0-35.0); Mean Corpuscular Volume 83 fL (80-100); Monocytes # (Auto) 0.4 Thou/mm3 (0.0-0.8); Monocytes % (Auto) 7 % (0-12); Neutrophils # (Auto) 2.5 Thou/mm3 (1.8-7.7); Neutrophils % (Auto) 41 % (37-80); Nucleated Red Blood Cell % 0 /100 WBC (0); Platelet Count 128 Thou/mm3 (140-440); RDW Standard Deviation 41.3 fL (35.1-43.9); White Blood Count 6.1 Thou/mm3 (3.8-10.6)
[2024-01-28 11:52] LABS: Anion Gap 6 (7-16); BUN/Creatinine Ratio 21 Ratio (12-20); Blood Urea Nitrogen 15 mg/dL (9-23); Calcium 9.6 mg/dL (8.3-10.6); Carbon Dioxide 29.5 mMol/L (20.0-31.0); Chloride 104 mMol/L (98-107); Creatinine (Component) 0.7 mg/dL (0.6-1.3); Glucose 88 mg/dL (74-106); Osmolality,Calculated 277 (275-295); Partial Thromboplastin Time 30.2 Seconds (22.0-36.0); Potassium 4.6 mMol/L (3.4-5.1); Prothrombin Time 11.4 Seconds (9.0-12.2); Sodium 139 mMol/L (136-145); eGFR > 60 See Note
[2024-01-31] VITALS (16 sets, daily range): BP systolic 96–145; BP diastolic 63–89; PULSE 52–67; RESP 11–19; TEMP 36.4–36.8; O2SAT 97–100; BMI 21.2
[2024-01-31] MEDS: SODIUM CHLORIDE 0.45 % 500 ML 100 ML IV (07:37)
[2024-01-31] MEDS: DEXTROSE 5%-0.45% NS 500 ML 100 ML IV (08:57)
--- NOTE | 2024-01-31 09:53 | ESOP_ITS ---
RE: FELI NORMAN : 1955 DATE OF OPERATION: 01/31/2024 PROCEDURE PERFORMED: 1. Diagnostic left heart cardiac catheterization, selective coronary angiogram, left ventricular angiography, CPT 81975. 2. Conscious sedation for 15-minute duration. 3. Ultrasound-guided access, right radial artery. DIAGNOSES: Angina pectoris, previous stent placement, shortness of breath. HISTORY AND INDICATIONS: The patient is a 68-year-old male with a history of CAD status post previous stent placement in circumflex artery in 2017. He has had episode of chest pain and acute non-ST segment elevation myocardial infarction. Recently hospitalized and discharged home. Nuclear scan was slightly abnormal and showed evidence of ischemia involving the inferior wall segment. There was also evidence of T wave inversion in the precordial leads. Hence, coronary angiogram was recommended to assess the patient is a candidate for PCI intervention. DESCRIPTION OF PROCEDURE: The patient was brought to cardiac catheterization laboratory where he was given 2 mg Versed and 50 mcg of fentanyl for conscious sedation. Right radial artery was cannulated by micropuncture technique with 1% lidocaine local anesthesia. Ultrasound guidance was used to cannulate the artery. A #6 [place] glide sheath was introduced. Selective right and left coronary angiogram. Left heart catheterization and left ventricular angiogram performed by a 5-[place] TIG-4 diagnostic catheter. The patient tolerated the procedure well with no complications. TR band was applied successfully. Hemostasis was secured. Radial cocktail consisting of nitroglycerin and verapamil was also given and heparin 2000 units. Cardiac catheterization showed following findings: HEMODYNAMICS: Left ventricular pressure is 100/10 aortic pressure is 110/70. No gradient across the aortic valve. Left ventricular angiogram showed normal left ventricular wall motion, ejection fraction 60%. Coronary angiogram showed the following findings. Right coronary artery large and dominant giving a PDA and PL branches, appeared normal. Left coronary system. Left main coronary is normal. Left anterior descending artery showed evidence of mild plaque in the midsegment. Circumflex artery showed a stent proximal segment close to origin widely patent stent. SUMMARY OF FINDINGS AND SUGGESTIONS: 1. Widely patent stent in the left circumflex artery. No re-stenosis. 2. Mild atherosclerotic plaque involving mid LAD. 3. Nonobstructive right coronary artery and rest of the coronary arteries. 4. Normal left ventricular function. RECOMMENDATIONS: The patient is reassured about the absence of significant obstructive CAD. Stent is widely patent. Prognosis is excellent. Recommended maximum medical management. Reassured about negative findings. DT: 08:33:57 TT: 09:44:00 Ref: [id number] - TID: [id number] MTDD
--- NOTE | 2024-01-31 10:15 | PC.NURSE ---
TR band removed at this time. Surgical site asymptomatic, no active bleeding, no hematoma noted on right upper extremity or around the surgical site. Capillary refill < 3 seconds. No noted changes in color or temperature on right upper extremity. Patient denies general and localized pain, no loss in sensation, no tingling or numbness felt to right upper extremity. Tagaderm and Coban wrap applied. Will continue to monitor
--- NOTE | 2024-01-31 10:30 | PC.NURSE ---
Surgical site remains asymptomatic, no active bleeding, no hematoma noted on right upper extremity or around the surgical site. Capillary refill < 3 seconds. No noted changes in color or temperature on right upper extremity. Patient denies generalized and localized pain, no loss in sensation, no tingling or numbness felt to right upper extremity. Tagaderm and Coban wrap in place, clean, and dry. Will continue to monitor
--- NOTE | 2024-01-31 11:12 | PC.NURSE ---
1104 patient is awake, alert, breathing unlabored, s/p LHC under IV moderate sedation, report received from Sunil BROOKS, ok to discharge home at 11:30am. TR band has been removed 1015am.
--- NOTE | 2024-01-31 11:45 | PC.NURSE ---
1140 patient is awake, alert, breathing unlabored, dressing dry with no bleeding, discharge instructions given to patient and , patient discharged home in wheelchair with all belongings.
== END 2024-01-31 11:40 | disposition hospice, home (50) ==
PROVIDERS: Referring Provider Internal Medicine Cardiovascular Disease; Visit Provider Internal Medicine Cardiovascular Disease
PROC: (CPT 93458; principal; 2024-01-31 07:30)
DX: I25.118 Atherosclerotic heart disease of native coronary artery with other forms of angina pectoris (principal); I25.2 Old myocardial infarction; Z95.5 Presence of coronary angioplasty implant and graft; Z01.810 Encounter for preprocedural cardiovascular examination; I34.0 Nonrheumatic mitral (valve) insufficiency; R06.02 Shortness of breath
CPT/HCPCS: 93458; 36415; 80048; 85025; 85610; 85730; 93005; 99152; A4649; C1769; C1887; C1894; J0171; J0461; J1643; J2250; J2310; J2371; J3010; J3490; J7040; J7042; Q9967; J1644; J2305

== ENCOUNTER → 2024-03-01 | Outpatient (CLI) | payer MEDICARE, SELFPAY ==
[2024-03-01 10:04] LABS: Collection Type, Urine Clean Catch; Squamous Epithelial Cell,Urine 0 /hpf (0-5)
[2024-03-01 10:28] LABS: Basophils # (Auto) 0.1 Thou/mm3 (0.0-0.2); Basophils % (Auto) 1 % (0-2.5); Eosinophils # (Auto) 0.2 Thou/mm3 (0.0-0.5); Eosinophils % (Auto) 7 % (0-10); Hematocrit 32.7 % (41.0-53.0); Hemoglobin 11.4 g/dL (13.5-16.0); Immature Granulocytes % (Auto) 0 % (0-0); Immature Granulocytes Auto 0.01 Thou/mm3 (0.00-0.00); Lymphocytes # (Auto) 2.2 Thou/mm3 (1.0-4.8); Lymphocytes % (Auto) 60 % (10-50); Mean Corpuscular HGB Conc 34.9 g/dl (31.0-37.0); Mean Corpuscular Hemoglobin 29.2 pg (25.0-35.0); Mean Corpuscular Volume 84 fL (80-100); Monocytes # (Auto) 0.2 Thou/mm3 (0.0-0.8); Monocytes % (Auto) 6 % (0-12); Neutrophils # (Auto) 0.9 Thou/mm3 (1.8-7.7); Neutrophils % (Auto) 25 % (37-80); Nucleated Red Blood Cell % 0 /100 WBC (0); Platelet Count 123 Thou/mm3 (140-440); RDW Standard Deviation 41.5 fL (35.1-43.9); Red Blood Count 3.91 Miln/mm3 (4.50-5.90); White Blood Count 3.6 Thou/mm3 (3.8-10.6)
[2024-03-01 10:32] LABS: Bilirubin,Urine Negative (Negative); Blood,Urine Trace (Negative); Clarity,Urine Clear (Clear/Hazy); Color,Urine Yellow (Lt Yel-Yel); Culture Indicated,Urine Not Indicated; Glucose, Urine Negative (Negative); Hyaline Casts,Urine < 1 /hpf (0-1); Ketones,Urine Negative (Negative); Leukocyte Esterase,Urine Negative (Negative); Nitrite,Urine Negative (Negative); PH,Urine 5.5 (5.0-7.0); Protein,Urine Trace (Neg - Trace); RBC,Urine 7 /hpf (0-3); Specific Gravity,Urine 1.024 (1.001-1.035); Urobilinogen,Urine Negative mg/dL (0.0-1.0); WBC,Urine 1 /hpf (0-5)
[2024-03-01 10:56] LABS: Alanine Aminotransferase 12 U/L (10-49); Albumin, Serum 4.1 gm/dL (3.4-4.8); Albumin/Globulin Ratio 1.9 (1.2-2.2); Alkaline Phosphatase 80 U/L (46-116); Anion Gap 8 (7-16); Aspartate Amino Transferase 34 U/L (0-34); BUN/Creatinine Ratio 20 Ratio (12-20); Blood Urea Nitrogen 14 mg/dL (9-23); Calcium 9.3 mg/dL (8.3-10.6); Calcium (Corrected) 9.3 mg/dL (8.5-10.1); Carbon Dioxide 28.1 mMol/L (20.0-31.0); Cardiac Risk Estimate 3.3 RATIO (4.0-6.7); Chloride 107 mMol/L (98-107); Cholesterol 186 mg/dL (132-200); Creatinine (Component) 0.7 mg/dL (0.6-1.3); Globulin 2.2 gm/dL (2.3-3.5); Glucose 93 mg/dL (74-106); HDL Cholesterol 57 mg/dL (40-60); LDL Cholesterol,Calculated 111 mg/dL (0-130); Osmolality,Calculated 285 (275-295); Potassium 3.8 mMol/L (3.4-5.1); Sodium 143 mMol/L (136-145); Thyroid Stimulating Hormone 3.54 uIU/mL (0.55-4.78); Total Protein 6.3 gm/dL (5.7-8.2); Triglycerides 91 mg/dL (30-150); eGFR > 60 See Note
[2024-03-01 15:27] LABS: Path Review Blood Smear Sent to Pathologist
== END | disposition home or self-care (01) ==
LOC: COPL 08:26
PROVIDERS: PCP Family Medicine; Referring Provider Family Medicine; Visit Provider Family Medicine
DX: J18.9 Pneumonia, unspecified organism (principal); E78.2 Mixed hyperlipidemia; E11.9 Type 2 diabetes mellitus without complications
CPT/HCPCS: 36415; 80053; 80061; 81001; 84443; 85025

== ENCOUNTER → 2024-04-04 | Outpatient (CLI) | payer OTHER, MEDICARE, SELFPAY ==
--- NOTE | 2024-04-04 | XR_ITS ---
Examination: Bone densitometry Date and time of exam:April 04, 2024 1304 hrs. Indications: 68-year-old male with diagnosis age related osteoporosis, personal history rheumatoid arthritis Technique: Lumbar spine and hip total bone mineralization values of an calculated. Peak reference and age match control results have been displayed. Findings: Lumbar spine total bone mineralization is1.356 gm/cm2. This is 2.4 standard deviations above peak reference. This is 3.2 standard deviations above age-matched controls. Hip total bone mineralization is 0.972 gm/cm2 This is 0.6 standard deviations below peak reference. This is 0.0 standard deviations at age-matched controls Impression: There is normal mineralization based on lumbar spine measurements. There is osteopenia based on hip measurements
== END | disposition home or self-care (01) ==
PROVIDERS: PCP Family Medicine; Referring Provider Family Medicine; Visit Provider Family Medicine
DX: M85.88 Other specified disorders of bone density and structure, other site (principal)
CPT/HCPCS: 77080

== ENCOUNTER 2024-04-20 15:45 | Emergency (ER) | payer MEDICARE, SELFPAY ==
[2024-04-20 16:42] VITALS: BP 97/62; PULSE 72; RESP 16; TEMP 38; O2SAT 97; BMI 21.8
--- NOTE | 2024-04-20 16:45 | XR_ITS ---
EXAMINATION: XR chest 1V ORDERING PROVIDER: Evans Patel NP HISTORY: SOB TECHNIQUE: Single portable AP radiograph of the chest. COMPARISON: 12/24/2023, chest radiographs and CT. FINDINGS: Lines and Tubes: None. Lungs: Faint airspace opacities right lateral midlung and left upper lobe. Pleura: No pneumothorax or pleural effusion. Cardiomediastinal Silhouette: Uncoiled aorta. Soft Tissues/Bones: Normal. IMPRESSION: Faint airspace opacities left upper and right lateral midlung concerning for early pneumonia.
--- NOTE | 2024-04-20 16:45 | EKG_ITS ---
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
--- NOTE | 2024-04-20 16:46 | EDRME_ITS ---
<Statement entered by Neeru Gonzalez MD - 04/20/24 17:38> As co-signing physician, I was present and available for consult prn. I concur with the plan and care as documented by the midlevel provider. Rapid Medical Screening Exam [facility] Arrival date/time: 04/20/24 15:45 CC: Heat in his face , cough, dizziness, shortness of breath HPI ongoing for the past 24 hours no other family members are ill with similar symptoms. Noted to have a temperature of 100.4 upon assessment. Chief Complaint: Flu Like Symptoms Time Seen by Provider: 04/20/24 16:45 Vital signs: Vital Signs Temperature 100.4 F 04/20/24 16:42 Pulse Rate 72 04/20/24 16:42 Respiratory Rate 16 04/20/24 16:42 Blood Pressure 97/62 04/20/24 16:42 Pulse Oximetry (%) 97 04/20/24 16:42 Oxygen Delivery Method Room Air 04/20/24 16:42
[2024-04-20 17:28] LABS: Basophils # (Auto) 0.1 Thou/mm3 (0.0-0.2); Basophils % (Auto) 1 % (0-2.5); Eosinophils # (Auto) 0.3 Thou/mm3 (0.0-0.5); Eosinophils % (Auto) 4 % (0-10); Hematocrit 36.7 % (41.0-53.0); Hemoglobin 12.8 g/dL (13.5-16.0); Immature Granulocytes % (Auto) 0 % (0-0); Immature Granulocytes Auto 0.01 Thou/mm3 (0.00-0.00); Lymphocytes # (Auto) 2.5 Thou/mm3 (1.0-4.8); Lymphocytes % (Auto) 39 % (10-50); Mean Corpuscular HGB Conc 34.9 g/dl (31.0-37.0); Mean Corpuscular Hemoglobin 29.3 pg (25.0-35.0); Mean Corpuscular Volume 84 fL (80-100); Monocytes # (Auto) 0.6 Thou/mm3 (0.0-0.8); Monocytes % (Auto) 9 % (0-12); Neutrophils % (Auto) 46 % (37-80); Nucleated Red Blood Cell % 0 /100 WBC (0); Platelet Count 164 Thou/mm3 (140-440); RDW Standard Deviation 41.7 fL (35.1-43.9); Red Blood Count 4.37 Miln/mm3 (4.50-5.90); White Blood Count 6.5 Thou/mm3 (3.8-10.6)
[2024-04-20 17:43] LABS: INR 1.1 (0.9-1.3); Partial Thromboplastin Time 31.7 Seconds (22.0-36.0); Prothrombin Time 11.7 Seconds (9.0-12.2)
[2024-04-20 17:45] LABS: B-Type Natriuretic Peptide 149 pg/mL (0-100)
[2024-04-20 17:56] LABS: Alanine Aminotransferase 10 U/L (10-49); Albumin, Serum 4.4 gm/dL (3.4-4.8); Albumin/Globulin Ratio 1.7 (1.2-2.2); Alkaline Phosphatase 77 U/L (46-116); Anion Gap 9 (7-16); Aspartate Amino Transferase 36 U/L (0-34); BUN/Creatinine Ratio 13 Ratio (12-20); Bilirubin,Total 1.5 mg/dL (0.3-1.2); Blood Urea Nitrogen 13 mg/dL (9-23); Calcium 9.1 mg/dL (8.3-10.6); Calcium (Corrected) 9.1 mg/dL (8.5-10.1); Chloride 101 mMol/L (98-107); Estimated Creatinine Clearance 70.9 mL/min (>60); Globulin 2.6 gm/dL (2.3-3.5); Glucose 84 mg/dL (74-106); LDH (Lactate Dehydrogenase) 209 U/L (120-246); Magnesium 1.9 mg/dL (1.6-2.6); Osmolality,Calculated 274 (275-295); Sodium 138 mMol/L (136-145); Troponin I < 0.020 ng/mL (0.0-0.045); eGFR > 60 See Note
--- NOTE | 2024-04-20 19:09 | PD.EDURI ---
Upper Respiratory Inf. RME/HPI General Chief Complaint: Flu Like Symptoms Stated Complaint: WEAK, VOMITING, COLD Time Seen by Provider: 04/20/24 16:45 Arrival date/time: 04/20/24 15:45 RME / HPI RME / HPI Narrative: 68-year-old male patient with significant history of hypercholesterolemia, hyperglycemia, was brought in by family for evaluation regarding flulike symptoms. Onset of symptoms since yesterday as flulike symptoms, described as cough, dizziness, shortness of breath, hot to touch of the face but cold on the extremities, vomiting, severity moderate. Other sibling in the family are sick with flulike symptoms also. Patient denies any abdominal pain. Denies any chest pain. Patient is drowsy than usual. Related Data Home Medications ?Medication ?Instructions ?Recorded ?Confirmed ferrous sulfate 325 mg (65 mg 325 mg PO QDAY 09/15/22 01/31/24 iron) tablet vitamin B6-vitamin E-magnesium 1 tab PO QDAY 09/15/22 01/31/24 tablet atorvastatin 20 mg tablet 20 mg PO QPM 01/31/24 01/31/24 Previous Rx's ?Medication ?Instructions ?Recorded ondansetron 4 mg disintegrating 4 mg PO Q8H #10 tabs 12/24/23 tablet aspirin 81 mg tablet,delayed 81 mg PO QDAY 30 days #30 tabs 12/26/23 release food supplemt, lactose-reduced 1 ea PO BID #3,960 mL 12/26/23 (Ensure MAX Protein oral liquid) pantoprazole 20 mg tablet,delayed 20 mg PO QDAY #14 tabs 12/26/23 release Allergies Allergy/AdvReac Type Severity Reaction Status Date / Time No Known Allergies Allergy Verified 04/20/24 15:47 Review of Systems Review of Systems Narrative Review of Systems: Review of system reviewed and within normal limits except mentioned in HPI ED Exam Narrative Physical exam: VITAL SIGNS: Reviewed. GENERAL APPEARANCE: Alert and interactive, follows commands, no acute distress, HEAD AND FACE: Non-traumatic. ENT: PERRL, pink conjunctivitis, eyelid no trauma, Mucous membrane moist. NECK: Supple, nontender, no nuchal rigidity. CHEST: No tenderness, no crepitus, no paradoxical movement, no retractions. LUNGS: Clear, well ventilated, symmetric, no rales, no wheezing, no ronchi, no stridor, good breath sounds bilaterally. HEART: Regular rate, regular rhythm, no murmur, no gallops. ABDOMEN: Soft, positive bowel sounds, nondistended, no guarding, nontender, no rebound, no masses, RECTAL: Deferred. GENITAL: Deferred. NEUROLOGICAL: Gross motor function intact sensory function intact, Appropriate for age. MUSCULOSKELETAL: low back nontender, full range of motion. EXTREMITIES: Nontender, full range of motion. SKIN: Color pink, dry, no rash, no lacerations, no abrasions, no contusions. LYMPHATICS: Deferred. Course Orders Category Date Time Status Bedside COVID-19 Antigen Test NOW Care 04/20/24 16:45 Active Bedside Influenza A&B Antigen Test NOW Care 04/20/24 16:46 Completed EKG (ED ONLY) *Do not use* NOW Care 04/20/24 16:45 Completed EKG (ED Only) Stat Exams 04/20/24 16:45 Draft XR chest 1V Stat Exams 04/20/24 16:45 Completed B-Type Natriuretic Peptide Stat Lab 04/20/24 17:04 Completed CBC Stat Lab 04/20/24 17:04 Completed Comprehensive Metabolic Panel Stat Lab 04/20/24 17:04 Completed Drug Screen,Urine Stat Lab 04/20/24 16:45 Ordered LDH (Lactate Dehydrogenase) Stat Lab 04/20/24 17:04 Completed Magnesium Stat Lab 04/20/24 17:04 Completed Partial Thromboplastin Time Stat Lab 04/20/24 17:04 Completed Prothrombin Time with INR Stat Lab 04/20/24 17:04 Completed Troponin I Stat Lab 04/20/24 17:04 Completed Urinalysis Stat Lab 04/20/24 16:45 Ordered Azithromycin Inj [Zithromax Inj] 500 mg Med 04/20/24 19:08 Ordered Sodium Chloride 0.9% 250 ml [Ns] 250 ml IV X1 Sodium Chloride 0.9% 1000 ml [Ns] 1,000 ml Med 04/20/24 19:07 Active IV 999 mls/hr cefTRIAXone [Rocephin] 1,000 mg Med 04/20/24 19:08 Ordered SODIUM CHLORIDE 0.9% (Popper) [Ns 0.9% (P)] 50 ml IV X1 Vital Signs Vital signs: Vital Signs Temperature 100.4 F 04/20/24 16:42 Pulse Rate 72 04/20/24 16:42 Respiratory Rate 16 04/20/24 16:42 Blood Pressure 97/62 04/20/24 16:42 Pulse Oximetry (%) 97 04/20/24 16:42 Oxygen Delivery Method Room Air 04/20/24 16:42 Upper Respiratory Infection MDM Narrative MDM Narrative:: 68-year-old male patient with significant history of hypercholesterolemia, hyperglycemia, was brought in by family for evaluation regarding flulike symptoms. Onset of symptoms since yesterday as flulike symptoms, described as cough, dizziness, shortness of breath, hot to touch of the face but cold on the extremities, vomiting, severity moderate. Other sibling in the family are sick with flulike symptoms also. Patient denies any abdominal pain. Denies any chest pain. Patient is drowsy than usual. Medications / Prescriptions Medication administrations:: Medication Administration History Sodium Chloride (Ns) 1,000 mls @ 999 mls/hr IV .Q1H1M ONE Stop: 04/20/24 20:07 Ceftriaxone Sodium 1,000 mg/ (Sodium Chloride) 50 mls @ 100 mls/hr IV X1 ONE Stop: 04/20/24 19:37 Azithromycin 500 mg/ Sodium (Chloride) 250 mls @ 250 mls/hr IV X1 ONE Stop: 04/20/24 20:07 Discharge Plan Prescriptions/Referrals Prescriptions/Med Rec: No Action ondansetron 4 mg tablet,disintegrating 4 mg PO Q8H Qty: 10 0RF aspirin 81 mg Tablet,Delayed Release (Dr/Ec) 81 mg PO QDAY 30 Days Qty: 30 3RF pantoprazole 20 mg tablet,delayed release (DR/EC) 20 mg PO QDAY Qty: 14 0RF Ensure MAX Protein Liquid 1 ea PO BID Qty: 3960 0RF ferrous sulfate 325 mg (65 mg iron) Tablet 325 mg PO QDAY vitamin B6-vitamin E-magnesium Tablet 1 tab PO QDAY atorvastatin 20 mg Tablet 20 mg PO QPM Referrals: No Primary/Family,Physician [Primary Care Provider] - In 1 week Patient/Caregiver Discharge Instructions Print Language: Setswana
[2024-04-20 23:33] VITALS: BP 98/66; PULSE 78; RESP 18; TEMP 37.6; O2SAT 97
[2024-04-20] MEDS: cefTRIAXone 1,000 MG in SODIUM CHLORIDE 0.9% (Popper) 50 ML 100 MG IV (23:45)
[2024-04-20] MEDS: SODIUM CHLORIDE 0.9% 1000 ML 1,000 ML 999 ML IV (23:45)
--- NOTE | 2024-04-21 00:29 | PD.EDURI ---
Upper Respiratory Inf. RME/HPI General Chief Complaint: Flu Like Symptoms Stated Complaint: WEAK, VOMITING, COLD Time Seen by Provider: 04/20/24 16:45 Arrival date/time: 04/20/24 15:45 Limitations: no limitations RME / HPI RME / HPI Narrative: 68-year-old male patient with significant history of hypercholesterolemia, hyperglycemia, was brought in by family for evaluation regarding flulike symptoms. Onset of symptoms since yesterday as flulike symptoms, described as cough, dizziness, shortness of breath, hot to touch of the face but cold on the extremities, vomiting, severity moderate. Other sibling in the family are sick with flulike symptoms also. Patient denies any abdominal pain. Denies any chest pain. Patient is drowsy than usual. Dr. Gerard's Main ED Evaluation: 69yo male presents to the ED for a chief complaint of flu-like symptoms. Patient states he started having a cough, N/V, fatigued, and has been feeling generally weak since yesterday. Patient notes family members at home are sick with similar symptoms. He denies any chest pain, abdominal pain, fever, chills or any other associated symptoms. No known allergies. Related Data Home Medications ?Medication ?Instructions ?Recorded ?Confirmed ferrous sulfate 325 mg (65 mg 325 mg PO QDAY 09/15/22 01/31/24 iron) tablet vitamin B6-vitamin E-magnesium 1 tab PO QDAY 09/15/22 01/31/24 tablet atorvastatin 20 mg tablet 20 mg PO QPM 01/31/24 01/31/24 Previous Rx's ?Medication ?Instructions ?Recorded ondansetron 4 mg disintegrating 4 mg PO Q8H #10 tabs 12/24/23 tablet aspirin 81 mg tablet,delayed 81 mg PO QDAY 30 days #30 tabs 12/26/23 release food supplemt, lactose-reduced 1 ea PO BID #3,960 mL 12/26/23 (Ensure MAX Protein oral liquid) pantoprazole 20 mg tablet,delayed 20 mg PO QDAY #14 tabs 12/26/23 release Allergies Allergy/AdvReac Type Severity Reaction Status Date / Time No Known Allergies Allergy Verified 04/21/24 14:46 Review of Systems Review of Systems Systems Reviewed: All systems reviewed, normal except as documented ED Exam General Limitations: Present no limitations General appearance: Present alert and in no apparent distress Head Head exam: Present atraumatic Eye Eye exam: Present normal appearance, PERRL and EOMI ENT ENT exam: Present normal exam, normal oropharynx and mucous membranes moist Neck Neck exam: Present normal inspection, full ROM and trachea midline Chest Chest inspection: Present normal inspection and symmetric chest wall rise Respiratory Respiratory exam: Present normal lung sounds bilaterally; Absent accessory muscle use Cardiovascular Cardiovascular exam: Present regular rate, normal rhythm and normal heart sounds Abdominal Exam Abdominal exam: Present soft and normal bowel sounds Extremities Exam Extremities exam: Present normal inspection and full ROM Back Exam Back exam: Present normal inspection and full ROM Neurological Exam Neurological exam: Present alert, oriented X3 and CN II-XII intact Psychiatric Psychiatric exam: Present normal affect and normal mood Skin Skin exam: Present warm, dry, intact and normal color Course Course Course Narrative: CXR is ordered for determining the etiology of cough. Quality Measures none Orders Category Date Time Status Bedside COVID-19 Antigen Test NOW Care 04/20/24 16:45 Completed Bedside Influenza A&B Antigen Test NOW Care 04/20/24 16:46 Completed EKG (ED ONLY) *Do not use* NOW Care 04/20/24 16:45 Completed EKG (ED Only) Stat Exams 04/20/24 16:45 Draft XR chest 1V Stat Exams 04/20/24 16:45 Completed B-Type Natriuretic Peptide Stat Lab 04/20/24 17:04 Completed CBC Stat Lab 04/20/24 17:04 Completed Comprehensive Metabolic Panel Stat Lab 04/20/24 17:04 Completed LDH (Lactate Dehydrogenase) Stat Lab 04/20/24 17:04 Completed Magnesium Stat Lab 04/20/24 17:04 Completed Partial Thromboplastin Time Stat Lab 04/20/24 17:04 Completed Prothrombin Time with INR Stat Lab 04/20/24 17:04 Completed Troponin I Stat Lab 04/20/24 17:04 Completed Acetaminophen Tab [Tylenol ES Tab] Med 04/21/24 03:26 Discontinued 1,000 mg PO X1 ONE Azithromycin Inj [Zithromax Inj] 500 mg Med 04/20/24 19:08 Discontinued Sodium Chloride 0.9% 250 ml [Ns] 250 ml IV X1 Sodium Chloride 0.9% 1000 ml [Ns] 1,000 ml Med 04/20/24 19:07 Discontinued IV 999 mls/hr cefTRIAXone [Rocephin] 1,000 mg Med 04/20/24 19:08 Discontinued SODIUM CHLORIDE 0.9% (Popper) [Ns 0.9% (P)] 50 ml IV X1 Vital Signs Vital signs: Vital Signs Temperature 100.4 F 04/20/24 16:42 Pulse Rate 72 04/20/24 16:42 Respiratory Rate 16 04/20/24 16:42 Blood Pressure 97/62 04/20/24 16:42 Pulse Oximetry (%) 97 04/20/24 16:42 Oxygen Delivery Method Room Air 04/20/24 16:42 Upper Respiratory Infection MDM Narrative MDM Narrative:: Patient was placed in a bed at 2317. 0052: Systolic blood pressure is 120. Patient data External records reviewed:: [facility] previous records (Per chart review, patient was admitted here on 12/24/23 for hypoglycemia.) Clinical information provided by:: patient Social determinants that could affect healthcare access:: none Patient has the following chronic illnesses:: CAD s/p stents How is presenting disease/condition affected by chronic disease/condition?: uneffected by Evaluation data The following diagnostics were reviewed and interpreted by me:: lab results, radiology exam(s) and EKG tracing(s) Lab and/or radiology exams considered but not ordered:: none Interpretation Summary: Bedside Influenza is negative, Bedside COVID is positive, CBC is normal, PT and INR are normal, PTT is normal, Electrolytes are normal, Troponin is normal, BNP is 149, according to my interpretation. EKG done at 1656, NSR, rate of 79, nonspecific ST-T wave changes, no ST elevations, no STEMI, according to my interpretation. [facility] Report Signed Patient: FELI NORMAN [facility]. Record#: [id number] Birthdate: 1955 Age/Sex: 68 / M [facility] Attending Dr: Ordering Physician: Evans Patel NP Date of Service: 04/20/24 Procedure(s): XR chest 1V Accession Number(s): [id number] cc: Feli Fatima MD; Evans Patel NP; NO PRIMARY/FAMILY,PHYSICIAN~ EXAMINATION: XR chest 1V ORDERING PROVIDER: Evans Patel NP HISTORY: SOB TECHNIQUE: Single portable AP radiograph of the chest. COMPARISON: 12/24/2023, chest radiographs and CT. FINDINGS: Lines and Tubes: None. Lungs: Faint airspace opacities right lateral midlung and left upper lobe. Pleura: No pneumothorax or pleural effusion. Cardiomediastinal Silhouette: Uncoiled aorta. Soft Tissues/Bones: Normal. IMPRESSION: Faint airspace opacities left upper and right lateral midlung concerning for early pneumonia. Dictated By: Feli Fatima MD Signed By: <Electronically signed by Feli Fatima MD in OV> 04/20/24 8805 Medications / Prescriptions Medications or Prescriptions considered but not ordered:: none Medication administrations:: Medication Administration History Discontinued Medications Acetaminophen (Acetaminophen 500 Mg Tablet) 1,000 mg PO X1 ONE Stop: 04/21/24 03:27 Last Admin: 04/21/24 03:33 Dose: 1,000 mg Documented By: EF Sodium Chloride (Ns) 1,000 mls @ 999 mls/hr IV .Q1H1M ONE Stop: 04/20/24 20:07 Last Infusion: 04/21/24 00:46 Dose: Infused Documented By: Admin: 04/20/24 23:45 Dose: 999 mls/hr Documented By: EF Ceftriaxone Sodium 1,000 mg/ (Sodium Chloride) 50 mls @ 100 mls/hr IV X1 ONE Stop: 04/20/24 19:37 Last Infusion: 04/21/24 00:15 Dose: Infused Documented By: Admin: 04/20/24 23:45 Dose: 100 mls/hr Documented By: EF Azithromycin 500 mg/ Sodium (Chloride) 250 mls @ 250 mls/hr IV X1 ONE Stop: 04/20/24 20:07 Last Infusion: 04/21/24 01:34 Dose: Infused Documented By: Admin: 04/21/24 00:34 Dose: 250 mls/hr Documented By: EF see above Consultations Consultation(s) initiated? (list below): No Diagnosis Upper Respiratory Differential Diagnosis: upper respiratory infection, viral infection, bronchitis, influenza and other (COVID, pneumonia) Most likely diagnosis given after review of the tests above:: see clinical impression below Admission Indicated Admission indicated?: not indicated Admission Request Was there a request for admission?: No Disposition Plan Disposition Plan: Discharge Discharge Attestation Discharge Attestation: The patient and all family members were given an opportunity to ask questions and understood the discharge instructions. Discharge instructions specifically effects, indications for sooner follow up or return to the emergency department, and the expected course of current diagnosis. Patient condition: Stable Discharge Plan Plan Patient Disposition: HOME (Self Care) Patient condition on transfer: Stable Prescriptions/Referrals Prescriptions/Med Rec: No Action ondansetron 4 mg tablet,disintegrating 4 mg PO Q8H Qty: 10 0RF aspirin 81 mg Tablet,Delayed Release (Dr/Ec) 81 mg PO QDAY 30 Days Qty: 30 3RF pantoprazole 20 mg tablet,delayed release (DR/EC) 20 mg PO QDAY Qty: 14 0RF Ensure MAX Protein Liquid 1 ea PO BID Qty: 3960 0RF ferrous sulfate 325 mg (65 mg iron) Tablet 325 mg PO QDAY vitamin B6-vitamin E-magnesium Tablet 1 tab PO QDAY atorvastatin 20 mg Tablet 20 mg PO QPM Referrals: No Primary/Family,Physician [Primary Care Provider] - In 1 week Problem List Clinical Impression: COVID-19 Patient/Caregiver Discharge Instructions Education Materials: Caring for Someone Who Has COVID-19, COVID-19 Home Care Additional Instructions: Using inhaler as needed for cough. You can get a pulse oximeter from any local pharmacy. If your oxygen level should drop below 90% or you are feeling worse, cannot tolerate liquids, please return to emergency department Print Language: German Stand Alone Forms: Charley Award Info., Patient Portal Info Letter
[2024-04-21] MEDS: AZITHROMYCIN INJ 500 MG in SODIUM CHLORIDE 0.9% 250 ML 250 ML 250 MG IV (00:34)
[2024-04-21 01:38] VITALS: BP 113/71; PULSE 89; RESP 17; TEMP 37.7; O2SAT 96
[2024-04-21 03:33] VITALS: TEMP 37.7
[2024-04-21] MEDS: ACETAMINOPHEN 500 MG TABLET 1000 MG PO (03:33)
[2024-04-21 03:40] VITALS: BP 119/71; PULSE 88; RESP 14; TEMP 37.7; O2SAT 98
== END 2024-04-21 03:41 | disposition home or self-care (01) ==
PROVIDERS: Registered Nurse General Practice; Emergency Provider Emergency Medicine
DX: U07.1 COVID-19 (principal); E78.00 Pure hypercholesterolemia, unspecified
CPT/HCPCS: 36415; 71045; 80053; 80307; 81001; 83615; 83735; 83880; 84484; 85025; 85610; 85730; 87400; 87811; 93005; 96365; 96367; 99284; J0456; J0696; J7030; J7050; A9270

== ENCOUNTER 2024-04-21 14:33 | Inpatient (IN) | payer MEDICARE, SELFPAY ==
[2024-04-21] VITALS (22 sets, daily range): BP systolic 92–121; BP diastolic 56–81; PULSE 79–110; RESP 11–42; TEMP 36.3–37.2; O2SAT 77–100; BMI 25.8
--- NOTE | 2024-04-21 14:51 | EKG_ITS ---
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
--- NOTE | 2024-04-21 14:51 | XR_ITS ---
EXAMINATION: XR chest 1V portable ORDERING PROVIDER: Cr Macario MD HISTORY: dyspnea cough TECHNIQUE: Single portable AP radiograph of the chest. COMPARISON: 04/20/2024, chest radiographs FINDINGS: Lines and Tubes: Overlying monitoring leads Lungs: Increased retrocardiac opacities. Probable punctate calcified granuloma right lateral lung base. Pleura: No pneumothorax or pleural effusion. Cardiomediastinal Silhouette: Uncoiled aorta Soft Tissues/Bones: Normal. IMPRESSION: Findings concerning for early pneumonia.
--- NOTE | 2024-04-21 14:53 | PD.EDSOB ---
ED SOB =RME/HPI General Chief Complaint: Altered Mental Status Stated Complaint: ALTERED Time Seen by Provider: 04/21/24 14:51 Arrival date/time: 04/21/24 14:33 RME / HPI RME / HPI Narrative: Patient is a 69-year-old who is brought in by EMS for a low sugar at his home where he was unresponsive he was given amp of D50 and his mental status returned and he came back to his normal mental status. Also noted his O2 sat was 77% on room air. He had an episode of nausea vomiting x 1 episode Patient has no complaint of injury or trauma. He appears to be a slow historian o as he is unable to provide any significant history. Related Data Home Medications ?Medication ?Instructions ?Recorded ?Confirmed ferrous sulfate 325 mg (65 mg 325 mg PO QDAY 09/15/22 01/31/24 iron) tablet vitamin B6-vitamin E-magnesium 1 tab PO QDAY 09/15/22 01/31/24 tablet atorvastatin 20 mg tablet 20 mg PO QPM 01/31/24 01/31/24 Previous Rx's ?Medication ?Instructions ?Recorded ondansetron 4 mg disintegrating 4 mg PO Q8H #10 tabs 12/24/23 tablet aspirin 81 mg tablet,delayed 81 mg PO QDAY 30 days #30 tabs 12/26/23 release food supplemt, lactose-reduced 1 ea PO BID #3,960 mL 12/26/23 (Ensure MAX Protein oral liquid) pantoprazole 20 mg tablet,delayed 20 mg PO QDAY #14 tabs 12/26/23 release Allergies Allergy/AdvReac Type Severity Reaction Status Date / Time No Known Allergies Allergy Verified 04/21/24 14:46 Review of Systems Review of Systems ROS Unobtainable: unobtainable due to mental status Past Medical History Past Medical History CARDIAC: Positive Cardiac Disorders, Coronary Artery Disease and Hypercholesterolemia GASTROINTESTINAL: Positive Gastrointestinal Disorders and Hepatitis MUSCULOSKELETAL: Positive Osteoporosis HEMATOLOGIC: Positive Anemia Family History FAMILY HISTORY: Positive Family Cardiac Disorders Surgical History SURGICAL: Positive Cardiac Surgery and Coronary Stent Social History SMOKING STATUS: Never smoker SECOND HAND EXPOSURE: No ED Exam Narrative Physical exam: Physical Exam: General: The vital signs were reviewed. Soft-spoken the patient is non-toxic, he is breathing fast you can hear breath sounds are appear to be wheezes and lots of congestion in bilateral lung dawkins O2 sats are mid to low 90s with oxygen on. A patent airway, no respiratory distress and has no apparent circulatory problems. Head & Scalp: Normocephalic, atraumatic. Face: Appears normal and is without lesions, deformity. Ears: Left external pinna appears normal. Right external pinna appears normal. Eyes: The sclera is anicteric. No obvious photophobia. The Left and Right Orbit/Lid/Conjunctiva appears normal without swelling, discoloration or injection. Nose: The nose is without deformity, discharge or tenderness; Throat: Appears normal. The mucous membranes are pink and moist without exudates, redness or mass seen. The tongue appears normal. Neck: The neck is supple and no apparent mass or adenopathy. Chest: The chest wall is normal in size and symmetry and has no chest wall tenderness or crepitus. The patient displays musical breath sounds with wheezes in all lung dawkins. He is in no distress clinically Cardiovascular: Regular rate and rhythm; No murmurs, rubs, or gallops; Gastrointestinal: The abdomen appears normal. No obvious hernias or mass. The abdomen is soft and benign, non-distended, with no pain, no guarding and no rebound tenderness. Bowel sounds are present and normal sounding. No CVA tenderness. Genitourinary: Back/Spine: Normal inspection Extremities/Musculoskeletal/lymphatic: The bilateral upper and lower extremities are warm. There is no evidence of arterial insufficiency. There is no evidence of venous insufficiency/edema. The patient spontaneously moves bilateral upper and lower extremities with no pain and no limitation of movement. There is no apparent, injury or trauma. Skin: The skin is warm, dry and intact. No rashes. No petechia. No purpura. No abnormal bruising. The color is appropriate with no cyanosis. Mental status/Psychiatric: Mental status is appropriate for age. The patient has no apparent delusions, visual hallucinations, no apparent audible hallucinations. The patient has no apparent suicidal thoughts/ideation and no apparent homicidal thoughts/ideation. Neurological: The patient is awake, alert, interactive, cordial, cooperative and is oriented to name and situation. The patient follows commands and answers historical question with no impairment. There is no visual disturbance apparent. The pupils are equal and reactive bilaterally with normal eye movements and no diplopia The bilateral upper and lower extremities have normal strength, normal range of motion and normal functioning. The gait, station and balance were not tested due to acuity Course Quality Measures none Orders Category Date Time Status Bedside Blood Glucose Q1HR Care 04/21/24 14:55 Active Bedside COVID-19 Antigen Test NOW Care 04/21/24 14:53 Active Bedside Influenza A&B Antigen Test NOW Care 04/21/24 14:53 Completed Medical Office Asst STAT Care 04/21/24 14:51 Active Continuous Pulse Oximetry STAT Care 04/21/24 14:51 Completed EKG (ED ONLY) *Do not use* NOW Care 04/21/24 14:51 Completed Insert IV NOW Care 04/21/24 14:51 Active Miscellaneous Nursing Order NOW Care 04/21/24 14:51 Active Miscellaneous Nursing Order NOW Care 04/21/24 14:54 Active NPO STAT Care 04/21/24 14:51 Active EKG (ED Only) Stat Exams 04/21/24 14:51 Draft XR chest 1V portable Stat Exams 04/21/24 14:51 Completed ABG [Arterial Blood Gas] Stat Lab 04/21/24 17:22 Completed B-Type Natriuretic Peptide Stat Lab 04/21/24 15:10 Completed Blood Culture (Lab) Stat Lab 04/21/24 15:10 Received CBC Stat Lab 04/21/24 15:10 Completed Comprehensive Metabolic Panel Stat Lab 04/21/24 15:10 Completed Drug Screen,Urine Stat Lab 04/21/24 14:52 Ordered Lactate (Lactic Acid) Stat Lab 04/21/24 15:10 Results Magnesium Stat Lab 04/21/24 15:10 Completed RSV [Respiratory Syncytial Virus Ag] Stat Lab 04/21/24 15:55 Completed Strep A Rapid Stat Lab 04/21/24 15:54 Completed Troponin I Stat Lab 04/21/24 15:10 Completed Urinalysis Stat Lab 04/21/24 14:51 Ordered VBG [Venous Blood Gas] Stat Lab 04/21/24 16:24 Ordered Venous Blood Gas Stat Lab 04/21/24 15:10 Completed ALBUTEROL RT 0.5ml [Proventil Rt 0.5ml] Med 04/21/24 14:51 Discontinued 10 mg INH X1 ONE Ipratropium Lima Rt Nicolasa [Atrovent Rt Nicolasa] Med 04/21/24 14:51 Discontinued 0.5 mg INH X1 ONE LORazepam [Ativan Inj] Med 04/21/24 16:41 Discontinued 1 mg IVP X1 ONE MethylPREDNISolone.* [SoluMEDROL Inj] Med 04/21/24 14:51 Discontinued 125 mg IVP X1 ONE Oxygen Delivery NOW RT 04/21/24 14:51 Active Vital Signs Vital signs: Vital Signs Temperature 97.3 F 04/21/24 14:59 Pulse Rate 89 04/21/24 14:59 Respiratory Rate 21 H 04/21/24 14:59 Blood Pressure 114/73 04/21/24 14:59 Pulse Oximetry (%) 97 04/21/24 14:59 Oxygen Delivery Method Venturi Mask 04/21/24 14:59 Oxygen Flow Rate 15 04/21/24 14:59 Shortness of Breath / Dyspnea MDM Narrative MDM Narrative:: Patient appears to have a transient altered mental status associated with a low sugar and hypoxemia that is improved with some D50 and a fluid bolus. Will work him up for his hypoxemia his wheezing as it appears he has some type of COPD or asthma no history though he denied this initially. Patient got continuous neb treatments and I reevaluated him several times and his air movement may be slightly better but overall his demeanor has diminished and his O2 sats have overall decline. Medical workup had come back with the following COVID test came back positive. Hemoglobin platelet count 107 initial venous blood gas showed a respiratory acidosis with a pH is 7.26 and a pCO2 of 51 electrolytes are within normal is BUN 26 creatinine 1.4 lactic acid was slightly elevated at 2.1. Glucose was 125. Total bilirubin slightly elevated at 1.3 AST ALT were 65 and 8 respectively. BNP came back at 151 Chest x-ray had some fluffy infiltrates normal heart size no effusion was seen. I was quite concerned of the clinical progression of this patient as he became more agitated as the as the O2 sats declined into the mid 80s. At that point I put soft restraints on this patient and we got BiPAP set up with RT at that point he was saturating around the high 70s and very low 80s and required 1 of Ativan to sedate him to tolerate the BiPAP. I consulted critical care and Dr. Rivero came to department saw this patient and she adjusted the BiPAP such that his O2 sats came up to the low 90s and titrate his FiO2 from 100 down to 80% we discussed this case even further and felt he would be best to be parked in the ICU tonight be on a Precedex for sedation as we are pretty close to her intubating this gentleman. While he probably has COVID-pneumonia virus will cover him with some antibiotics for now. He got steroids and breathing treatments. So at this point patient has respiratory failure due to COVID-pneumonia with significant oxygen requirements and sustained right now with BiPAP and not going to be intubated at this point. Patient's care was assumed by Dr. Rivero ICU at approximately 1740 hrs. Patient data External records reviewed:: [facility] previous records (I reviewed H&P on 01/31/2024 ) and EMS form Clinical information provided by:: EMS Social determinants that could affect healthcare access:: none Patient has the following chronic illnesses:: CAD s/p stent How is presenting disease/condition affected by chronic disease/condition?: exacerbated by Evaluation data The following diagnostics were reviewed and interpreted by me:: lab results, radiology exam(s) and EKG tracing(s) (Sinus rhythm, rate 90, no STEMI, motion artifact noted ) Lab and/or radiology exams considered but not ordered:: None Interpretation Summary: Respiratory failure with hypoxemia COVID-pneumonia Medications / Prescriptions Medications or Prescriptions considered but not ordered:: None Medication administrations:: Medication Administration History Acetaminophen (Acetaminophen 325 Mg Tablet) 650 mg PO Q6H PRN PRN Reason: PAIN OR FEVER > 101 Stop: 05/21/24 17:26 Enoxaparin Sodium (Enoxaparin Sod Inj 40 Mg/0.4 Ml Syringe) 40 mg SC QDAY [facility] Stop: 05/06/24 08:59 Ondansetron HCl (Ondansetron Inj 2 Mg/Ml Inj 2 Ml) 4 mg IV Q6H PRN; Protocol PRN Reason: NAUSEA OR VOMITING Stop: 05/21/24 17:26 Pantoprazole Sodium (Pantoprazole Inj 40 Mg Vial) 40 mg IVP QDAY [facility] Stop: 05/22/24 08:59 Discontinued Medications Albuterol (Albuterol Rt 2.5 Mg/0.5 Ml Nebu) 10 mg INH X1 ONE Stop: 04/21/24 14:52 Last Admin: 04/21/24 15:08 Dose: 10 mg Documented By: NADIA Ipratropium Lima (Ipratropium Rt 0.5 Mg/ 2.5 Ml Nebu) 0.5 mg INH X1 ONE Stop: 04/21/24 14:52 Last Admin: 04/21/24 15:09 Dose: 0.5 mg Documented By: NADIA Lorazepam (Lorazepam 2 Mg/Ml Vial) 1 mg IVP X1 ONE Stop: 04/21/24 16:42 Last Admin: 04/21/24 16:44 Dose: 1 mg Documented By: FC Methylprednisolone Sodium Succinate (Methylprednisolone Sod Succ 62.5 Mg/Ml 2ml Vial) 125 mg IVP X1 ONE Stop: 04/21/24 14:52 Last Admin: 04/21/24 16:08 Dose: 125 mg Documented By: CORINNE See above Consultations Consultation(s) initiated? (list below): Yes Diagnosis Shortness of Breath Differential Diagnosis: acute exacerbation of chronic obstructive airways disease, congestive heart failure, community acquired pneumonia and asthma with exacerbation Most likely diagnosis given after review of the tests above:: Respiratory failure secondary to COVID. Admission Indicated Admission indicated?: indicated Admission Request Was there a request for admission?: Yes Admission Attestation Admission request attestation: Discussed case with [] from Hospitalist service regarding admission. Discussed patients ED course, exam findings, labs, and radiology results. The Hospitalist [agrees,declines] to accept the patient for admission. Disposition Plan Disposition Plan: Admit Critical Care Time Critical Care Time Critical Care Time: Yes Total Critical Care Time (min.): 70 Attestation: The high probability of sudden, clinically significant deterioration in the patient's condition required the highest level of my preparedness to intervene urgently. The services I provided to this patient were to treat and/or prevent clinically significant deterioration. Services included the following: chart data review, reviewing nursing notes and/or old charts, documentation time, wine consultant collaboration regarding findings and treatment options, medication orders and management, direct patient care, vital sign assessments and ordering, interpreting and reviewing diagnostic studies and lab tests. Aggregate critical care time includes only time during which I was engaged in work directly related to the patient's care, as described above, whether at bedside or elsewhere in the Emergency Department. It did not include time spent performing other reported procedures or the services of residents, students, nurses or physician assistants. Discharge Plan Plan Patient Disposition: Admit Acute Care w/in Hospital Disposition Comment: Dr. Rivero ICU Problem List Clinical Impression: Respiratory failure with hypoxia, Hypoglycemia, Asthma exacerbation in COPD, Pneumonia due to COVID-19 virus, Hypoxemia, Acute respiratory acidosis, Agitation
[2024-04-21] MEDS: ALBUTEROL RT 2.5 MG/0.5 ML NEBU 10 MG INH (15:08)
[2024-04-21] MEDS: IPRATROPIUM RT 0.5 MG/ 2.5 ML NEBU INH ×2 (15:09→19:25)
[2024-04-21 15:36] LABS: Lactate (Lactic Acid) 2.1 mMol/L (0.4-2.0)
[2024-04-21 15:41] LABS: Basophils % (Auto) 1 % (0-2.5); Eosinophils # (Auto) 0.1 Thou/mm3 (0.0-0.5); Eosinophils % (Auto) 1 % (0-10); Hematocrit 34.3 % (41.0-53.0); Hemoglobin 11.9 g/dL (13.5-16.0); Immature Granulocytes % (Auto) 0 % (0-0); Immature Granulocytes Auto 0.01 Thou/mm3 (0.00-0.00); Lymphocytes # (Auto) 1.2 Thou/mm3 (1.0-4.8); Lymphocytes % (Auto) 21 % (10-50); Mean Corpuscular HGB Conc 34.7 g/dl (31.0-37.0); Mean Corpuscular Hemoglobin 29.5 pg (25.0-35.0); Mean Corpuscular Volume 85 fL (80-100); Monocytes # (Auto) 0.4 Thou/mm3 (0.0-0.8); Monocytes % (Auto) 7 % (0-12); Neutrophils # (Auto) 4.1 Thou/mm3 (1.8-7.7); Neutrophils % (Auto) 70 % (37-80); Nucleated Red Blood Cell % 0 /100 WBC (0); Platelet Count 107 Thou/mm3 (140-440); RDW Standard Deviation 42.8 fL (35.1-43.9); Red Blood Count 4.04 Miln/mm3 (4.50-5.90); White Blood Count 5.8 Thou/mm3 (3.8-10.6)
[2024-04-21 15:55] LABS: Base Excess, Venous -4 (-3-3); O2 Saturation, Venous 81 % (96-97); PCO2, Venous 51 mmHg (36-56); PO2, Venous 50 mmHg (15-58); pH, Venous 7.26 (7.33-7.66)
[2024-04-21] MEDS: MethylPREDNISolone SOD SUCC 62.5 MG/ML 2ML VIAL 125 MG IVP (16:08)
[2024-04-21 16:11] LABS: B-Type Natriuretic Peptide 151 pg/mL (0-100)
[2024-04-21 16:24] LABS: Alanine Aminotransferase 8 U/L (10-49); Albumin, Serum 3.9 gm/dL (3.4-4.8); Albumin/Globulin Ratio 1.6 (1.2-2.2); Alkaline Phosphatase 64 U/L (46-116); Anion Gap 11 (7-16); Aspartate Amino Transferase 65 U/L (0-34); BUN/Creatinine Ratio 19 Ratio (12-20); Bilirubin,Total 1.3 mg/dL (0.3-1.2); Blood Urea Nitrogen 26 mg/dL (9-23); Calcium 8.9 mg/dL (8.3-10.6); Carbon Dioxide 23.3 mMol/L (20.0-31.0); Chloride 104 mMol/L (98-107); Creatinine (Component) 1.4 mg/dL (0.6-1.3); Estimated Creatinine Clearance 52.9 mL/min (>60); Globulin 2.5 gm/dL (2.3-3.5); Glucose 125 mg/dL (74-106); Osmolality,Calculated 281 (275-295); Sodium 138 mMol/L (136-145); Total Protein 6.4 gm/dL (5.7-8.2); Troponin I 0.036 ng/mL (0.0-0.045); eGFR 55 See Note
--- NOTE | 2024-04-21 16:28 | PC.NURSE ---
Patient became restless and started pulling off oxy mask and trying to get out of bed. and staff tried to redirect and calm patient. Patient not redirectable. Dr Macario notified. Bilateral soft wrist restraints applied. Patient O2 sat 79% on 15L Oxy mask. Dr esteves. RT here to place patient on BiPAP.
[2024-04-21 16:41] LABS: Strep A Rapid Negative (Negative)
[2024-04-21 16:41] LABS: Respiratory Syncytial Virus Ag Negative (Negative)
[2024-04-21] MEDS: LORazepam 2 MG/ML VIAL 1 MG IVP (16:44)
--- NOTE | 2024-04-21 16:46 | PC.NURSE ---
ICU Dr at bedside to evaluate patient.
--- NOTE | 2024-04-21 16:59 | PC.NURSE ---
CPAP placed on patient. Patient O2 sat improving. ER Dr and ICU Dr made aware.
[2024-04-21 17:30] LABS: Base Excess -6 (-3-3); HCO3 21 mEq/L (20-26); Inspired Oxygen, FIO2 80 %; O2 Saturation 97 % (91-98); PCO2 47 mmHg (32.0-48.0); PO2 89 mmHg (83-108); pH, Arterial 7.26 (7.35-7.45)
[2024-04-21 17:42] LABS: Allen Test Not Performed; Puncture Site Right Radial
[2024-04-21 18:00] LABS: INR 1.2 (0.9-1.3); Partial Thromboplastin Time 33.3 Seconds (22.0-36.0); Prothrombin Time 12.7 Seconds (9.0-12.2)
--- NOTE | 2024-04-21 18:00 | PC.NURSE ---
Patient calm and resting at this time. Restraints removed. at bedside.
--- NOTE | 2024-04-21 18:06 | PD.EDADDENDU ---
Emergency Room Addendum Addendum Narrative: Note this is Workmen's Comp paperwork was filled out and he is being admitted for pain control due to his 3 fractures as mentioned in the MDM above.
[2024-04-21 18:32] LABS: Reflex Lactate? Y
[2024-04-21] MEDS: RINGERS LACTATED 1000 ML 1,000 ML 999 ML IV (18:50)
[2024-04-21] MEDS: cefTRIAXone 1,000 MG in SODIUM CHLORIDE 0.9% (Popper) 50 ML 100 MG IV (18:50)
--- NOTE | 2024-04-21 19:02 | ESHP_ITS ---
Documentation for date of: 04/21/24 HPI History of Present Illness History of present illness: The patient is a 69-year-old male with a past medical history of CAD status post stent who presented to the ED on 04/21/2024 with complaints of shortness of breath, cough and altered mentation. Per at bedside, patient started complaining of a sore throat yesterday as well as was warm to touch, and having chills after which they initially presented to the ED. In the ED, the patient was noted to be COVID positive and was discharged home on supportive management. She also reports that he has had decreased oral intake in the last 3 days and had concerns that his blood glucose was going to be low as it usually is when patient does not have good oral intake. However, today, the patient got worse and PCP was contacted who initially plan to start the patient on steroids, however patient got worse and presented to the ED. Additionally, he was noted to have altered mentation today, as well as 2 episodes of vomiting with worsening cough and 1 noted episode of diarrhea. ED course: In the ED, the patient was noted to have hypoglycemia with initial blood glucose at 30, he was given an amp of D50 after which she returned to his normal mental status. Repeat COVID antigen test positive, he continued to be hypoxic and was placed on BiPAP and eventually on CPAP. Labs significant for creatinine of 1.4 lactic acid of 2.1, slightly elevated T. bili and AST. Chest x-ray showed findings for early pneumonia. Patient was admitted to ICU and as he was agitated while on CPAP and will require Precedex drip as well as close monitoring. Review of Systems Review of Systems ROS Unobtainable: unobtainable due to mental status Exam Vital Signs Temp Pulse Resp BP Pulse Ox O2 Del Method O2 Flow Rate 98.9 F 88 24 H 94/72 100 BiPAP 15 04/21/24 18:05 04/21/24 18:05 04/21/24 18:05 04/21/24 18:05 04/21/24 18:05 04/21/24 18:05 04/21/24 16:31 FiO2 80 04/21/24 17:28 Narrative Exam GENERAL: Awake, seems confused, unable to follow comands NEURO: Unable to assess HEENT: Dry mucosa. Eyes open, symmetrical, & clear CARDIO: No chest pain on palpation. Heart RRR, no obvious murmurs PULM: No noted coughing/dyspnea. Lungs minimal crackles on the right, CPAP on GI: Abdomen soft, nondistended, no pain on palpation. 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 SKIN/MSK/EXT: No wounds/rashes/edema/amputations, no pain on palpation. Pedal pulses present B/L Results: Labs 04/22/24 06:28 04/22/24 07:59 Labs: Short CBC 04/21/24 Range/Units 15:10 WBC 5.8 (3.8-10.6) Thou/mm3 Hgb 11.9 L (13.5-16.0) g/dL Hct 34.3 L (41.0-53.0) % Plt Count 107 L D (140-440) Thou/mm3 BMP 04/21/24 15:10 Sodium 138 Potassium 4.0 Chloride 104 Carbon Dioxide 23.3 BUN 26 H Creatinine 1.4 H Glucose 125 H Calcium 8.9 Cardiac Enzymes 04/21/24 Range/Units 15:10 Troponin I 0.036 (0.0-0.045) ng/mL Liver Function 04/21/24 Range/Units 15:10 Total Bilirubin 1.3 H (0.3-1.2) mg/dL AST 65 H (0-34) U/L ALT 8 L (10-49) U/L Alkaline Phosphatase 64 (46-116) U/L Albumin 3.9 D (3.4-4.8) gm/dL ABG Interpretation ABG results: 04/21/24 04/21/24 15:10 17:22 ABG pH 7.26 L ABG pCO2 47 ABG pO2 89 ABG HCO3 21 ABG O2 Saturation 97 ABG Base Excess -6 L VBG pH 7.26 L VBG pCO2 51 VBG pO2 50 VBG Base Excess -4 L Quality Measures Quality Measures none Advance care planning discussed with:: spouse Medications Home Medications and Allergies Home Medications ?Medication ?Instructions ?Recorded ?Confirmed ?Type ferrous sulfate 325 mg (65 mg 325 mg PO QDAY 09/15/22 01/31/24 History iron) tablet vitamin B6-vitamin E-magnesium 1 tab PO QDAY 09/15/22 01/31/24 History tablet atorvastatin 20 mg tablet 20 mg PO QPM 01/31/24 History Allergies Allergy/AdvReac Type Severity Reaction Status Date / Time No Known Allergies Allergy Verified 04/21/24 14:46 Visit Medications Acetaminophen (Acetaminophen 325 Mg Tablet) 650 mg PO Q6H PRN PRN Reason: PAIN OR FEVER > 101 Stop: 05/21/24 17:26 Albuterol/Ipratropium (Albuterol/Ipratropium (Duoneb) Rt Nicolas[place] 3 Ml Nebu) 3 ml INH Q4HRRT SUZY Stop: 05/21/24 18:59 Dexamethasone Sodium Phosphate (Dexamethasone Sod Phos Inj 4 Mg/Ml Vial) 6 mg IV QDAY SUZY; Protocol Stop: 05/22/24 08:59 Enoxaparin Sodium (Enoxaparin Sod Inj 40 Mg/0.4 Ml Syringe) 40 mg SC QDAY SUZY Stop: 05/06/24 08:59 Azithromycin 500 mg/ Sodium (Chloride) 250 mls @ 250 mls/hr IV X1 ONE Stop: 04/21/24 19:14 Dexmedetomidine/Sodium Chloride (Precedex Ivpb) 200 mcg in 50 mls @ 4.082 mls/hr IV .[id number] PRN; Protocol PRN Reason: Per PROTOCOL Stop: 05/21/24 18:34 Lactated Ringer's (Lactated Ringers) 1,000 mls @ 999 mls/hr IV .Q1H1M ONE Stop: 04/21/24 19:36 Last Admin: 04/21/24 18:50 Dose: 999 mls/hr Azithromycin 500 mg/ Sodium (Chloride) 250 mls @ 250 mls/hr IV QDAY SUZY Stop: 04/29/24 06:59 Ceftriaxone Sodium 1,000 mg/ (Sodium Chloride) 50 mls @ 100 mls/hr IV QDAY SUZY Stop: 04/29/24 08:59 Remdesivir 200 mg/ Sodium (Chloride) 250 mls @ 250 mls/hr IV X1 ONE; Protocol Stop: 04/21/24 19:53 Remdesivir 100 mg/ Sodium (Chloride) 100 mls @ 100 mls/hr IV QDAY@1400 SUZY; Protocol Stop: 04/25/24 14:59 Sodium Chloride (Ns) 1,000 mls @ 125 mls/hr IV .Q8H ONE Stop: 04/22/24 02:58 Ipratropium [place] (Ipratropium Rt 0.5 Mg/ 2.5 Ml Nebu) 0.5 mg INH Q4HRRT [facility] Stop: 05/21/24 18:59 Ondansetron HCl (Ondansetron Inj 2 Mg/Ml Inj 2 Ml) 4 mg IV Q6H PRN; Protocol PRN Reason: NAUSEA OR VOMITING Stop: 05/21/24 17:26 Pantoprazole Sodium (Pantoprazole Inj 40 Mg Vial) 40 mg IVP QDAY [facility] Stop: 05/22/24 08:59 Discontinued Medications Albuterol (Albuterol Rt 2.5 Mg/0.5 Ml Nebu) 10 mg INH X1 ONE Stop: 04/21/24 14:52 Last Admin: 04/21/24 15:08 Dose: 10 mg Ceftriaxone Sodium 1,000 mg/ (Sodium Chloride) 50 mls @ 100 mls/hr IV X1 ONE Stop: 04/21/24 18:28 Last Admin: 04/21/24 18:50 Dose: 100 mls/hr Azithromycin 500 mg/ Sodium (Chloride) 250 mls @ 250 mls/hr IV QDAY [facility] Stop: 04/29/24 08:59 Ipratropium [place] (Ipratropium Rt 0.5 Mg/ 2.5 Ml Nebu) 0.5 mg INH X1 ONE Stop: 04/21/24 14:52 Last Admin: 04/21/24 15:09 Dose: 0.5 mg Lorazepam (Lorazepam 2 Mg/Ml Vial) 1 mg IVP X1 ONE Stop: 04/21/24 16:42 Last Admin: 04/21/24 16:44 Dose: 1 mg Methylprednisolone Sodium Succinate (Methylprednisolone Sod Succ 62.5 Mg/Ml 2ml Vial) 125 mg IVP X1 ONE Stop: 04/21/24 14:52 Last Admin: 04/21/24 16:08 Dose: 125 mg Assessment & Plan Plan Summary:The patient is a 69-year-old male with a past medical history of CAD status post stent who presented to the ED on 04/21/2024 with complaints of shortness of breath, cough and altered mentation. Per at bedside, patient started complaining of a sore throat yesterday as well as was warm to touch, and having chills after which they initially presented to the ED. Neuro #Acute encephalopathy The patient presented with altered mental status from, initial blood glucose showed hyperglycemia. Likely metabolic from hypoglycemia Precedex drip-agitation Cardiovascular #History of CAD status post stent The patient apparently has had history of CAD with 1 stent placed about 8 years ago. Has had no other cardiac events since then, no chest pain at this admission. EKG showed sinus rhythm, no ST or T changes. Respiratory #Acute hypoxic respiratory failure #COVID-pneumonia Patient has a history of COVID years ago. He presented yesterday with sore throat, cough and fever and tested positive for COVID. Today, patient has worsening times and maxed out on high flow oxygen, was placed on BiPAP and eventually CPAP to optimize PEEP. Plan: -Continue on CPAP, decreasing FiO2 as tolerated, if PEEP will exceed 15, consider intubation.. -Remdesivir -IV ceftriaxone and azithromycin -Breathing treatments -Cultures -ABG in the morning GI #Transaminitis Mildly elevated AST and ALT, likely to be related to COVID infection Will continue to monitor LFTs Renal #Acute kidney injury #Likely prerenal The patient presented with decreased oral intake in the last 2 days, states that he has not had urine output in the last 24 hours. On examination, patient is hypovolemic. Plan: -IV normal saline 1 L x 1 -Bladder scan -Straight in and out if needed -Continue to monitor renal panel Endocrine #Hypoglycemia The patient presented with a blood glucose of 30, received 1 amp of D50. Will continue to monitor blood glucose, D10 if necessary Heme #Anemia Hemoglobin 11.9, looks to be above baseline. Will follow-up with an iron panel ID See resp as above Health maintenance: Dispo: ICU for acute hypoxic respiratory failure Diet: Normal saline/NPO/Regular diet DVT: Lovenox Garcia: None Lines: Peripheral Code: Full Case was discussed with attending physician, Dr Mat Laboy MD PGY-1 Disclaimer: This note was dictated by speech recognition. Minor errors in brassiere cup mold cutter may be present due to voice recognition software. Attending Provider Attestation/Addendum pt seen and examined with resident. In brief this is a 69yo M who was brought to the ER for SOB and Covid. He has been to the ER 2x in the past 2 days for SOB. He was found to be hypoxic with increased WOB and acute resp failure. He was started on a bipap 12/5/100% with sats in the 80%s. On exam he was anxious with increased WOB and slightly disoriented. Few scattered crackles with diminished lung dawkins, HRRR, abd s/nt/bs+, no edema, moved all 4, pulses palp. He was switched to CPAP 15 and given 1mg of Ativan for anxiety. His WOB began to improve and his oxygenation improved to mid 90s in the next 5min. The deicison was made to admit him to ICU for precedex gtt and closer monitoring with low threshhold to intubate. He also has some MONCHO with a LA and mild transaminitis. He was given a fluid bolus. case d/w ICU team and ER labs, imaging, records reviewed ~75ccmin required for eval, exam, review, intervention, discussion and formulation of POC for this critically ill pt with acute hypoxic resp failure and COVID at high risk for further and ongoing decompensation.
[2024-04-21 19:14] LABS: Lactic Acid, 3 HR 4.2 mMol/L (0.4-2.0)
[2024-04-21] MEDS: ALBUTEROL/IPRATROPIUM (Duoneb) RT SOL 3 ML NEBU INH ×2 (19:25→22:40)
[2024-04-21] MEDS: REMDESIVIR INJ 200 MG in SODIUM CHLORIDE 0.9% 250 ML 250 ML 250 MG IV (19:45)
[2024-04-21] MEDS: SODIUM CHLORIDE 0.9% 1000 ML 1,000 ML 125 ML IV (19:45)
[2024-04-21] MEDS: AZITHROMYCIN INJ 500 MG in SODIUM CHLORIDE 0.9% 250 ML 250 ML 250 MG IV (19:46)
[2024-04-21] MEDS: DEXMEDETOMIDINE 200 MCG IVPB 200 MCG/50 ML BOTTLE IV (22:01)
[2024-04-22] VITALS (107 sets, daily range): BP systolic 72–149; BP diastolic 46–96; PULSE 59–95; RESP 6–28; TEMP 35–36.5; O2SAT 95–100
[2024-04-22] MEDS: ONDANSETRON INJ 2 MG/ML INJ 2 ML 4 MG IV (00:21)
[2024-04-22] MEDS: SODIUM CHLORIDE 0.9% 500 ML 500 ML 999 ML IV (01:42)
[2024-04-22] MEDS: ALBUTEROL/IPRATROPIUM (Duoneb) RT SOL 3 ML NEBU INH ×5 (03:20→23:05)
--- NOTE | 2024-04-22 05:00 | XR_ITS ---
Examination: AP chest single view Technique: AP portable supine chest single view Exam date and time: The tip of a 0.03 hours Comparison 2024 Indications: Shortness of breath today Findings: Normal heart size Mild vascular congestion. No lobar pneumonia Impression: Mild vascular congestion
[2024-04-22 05:02] LABS: Allen Test Performed/OK; Base Excess -7 (-3-3); HCO3 19 mEq/L (20-26); Inspired Oxygen, FIO2 50 %; O2 Saturation 101 % (91-98); PCO2 42 mmHg (32.0-48.0); PO2 232 mmHg (83-108); Puncture Site Right Radial; pH, Arterial 7.27 (7.35-7.45)
[2024-04-22] MEDS: SODIUM CHLORIDE 0.9% 1000 ML 1,000 ML 999 ML IV (05:14)
[2024-04-22] MEDS: SODIUM CHLORIDE 0.9% 1000 ML 1,000 ML 125 ML IV (06:06)
[2024-04-22 06:56] LABS: Basophils % (Auto) 0 % (0-2.5); Eosinophils % (Auto) 0 % (0-10); Hematocrit 27.9 % (41.0-53.0); Hemoglobin 9.7 g/dL (13.5-16.0); Immature Granulocytes % (Auto) 1 % (0-0); Immature Granulocytes Auto 0.07 Thou/mm3 (0.00-0.00); Lymphocytes # (Auto) 0.4 Thou/mm3 (1.0-4.8); Lymphocytes % (Auto) 6 % (10-50); Mean Corpuscular HGB Conc 34.8 g/dl (31.0-37.0); Mean Corpuscular Hemoglobin 29.9 pg (25.0-35.0); Mean Corpuscular Volume 86 fL (80-100); Monocytes # (Auto) 0.3 Thou/mm3 (0.0-0.8); Monocytes % (Auto) 4 % (0-12); Neutrophils # (Auto) 5.6 Thou/mm3 (1.8-7.7); Neutrophils % (Auto) 89 % (37-80); Nucleated Red Blood Cell % 0 /100 WBC (0); Platelet Count 106 Thou/mm3 (140-440); RDW Standard Deviation 44.7 fL (35.1-43.9); Red Blood Count 3.24 Miln/mm3 (4.50-5.90); White Blood Count 6.3 Thou/mm3 (3.8-10.6)
[2024-04-22 08:36] LABS: Glucose Estimated Average 88 mg/dL (80-131); Hemoglobin A1C 4.7 % Hgb (4.8-6.0)
[2024-04-22 08:39] LABS: Alanine Aminotransferase 16 U/L (10-49); Albumin, Serum 3.5 gm/dL (3.4-4.8); Albumin/Globulin Ratio 1.7 (1.2-2.2); Alkaline Phosphatase 42 U/L (46-116); Anion Gap 10 (7-16); Aspartate Amino Transferase 58 U/L (0-34); BUN/Creatinine Ratio 29 Ratio (12-20); Bilirubin,Total 0.6 mg/dL (0.3-1.2); Blood Urea Nitrogen 26 mg/dL (9-23); Calcium 7.9 mg/dL (8.3-10.6); Calcium (Corrected) 8.3 mg/dL (8.5-10.1); Carbon Dioxide 20.8 mMol/L (20.0-31.0); Cardiac Risk Estimate 2.7 RATIO (4.0-6.7); Chloride 110 mMol/L (98-107); Cholesterol 137 mg/dL (132-200); Creatinine (Component) 0.9 mg/dL (0.6-1.3); Estimated Creatinine Clearance 78.5 mL/min (>60); Globulin 2.1 gm/dL (2.3-3.5); Glucose 219 mg/dL (74-106); HDL Cholesterol 50 mg/dL (40-60); LDL Cholesterol,Calculated 75 mg/dL (0-130); Magnesium 1.6 mg/dL (1.6-2.6); Osmolality,Calculated 292 (275-295); Phosphorous 2.5 mg/dL (2.4-5.1); Potassium 4.4 mMol/L (3.4-5.1); Sodium 141 mMol/L (136-145); Total Protein 5.6 gm/dL (5.7-8.2); Triglycerides 61 mg/dL (30-150); eGFR > 60 See Note
[2024-04-22] MEDS: ENOXAPARIN SOD INJ 40 MG/0.4 ML SYRINGE SC (09:00)
[2024-04-22] MEDS: cefTRIAXone 1,000 MG in SODIUM CHLORIDE 0.9% (Popper) 50 ML 100 MG IV (09:00)
[2024-04-22] MEDS: AZITHROMYCIN INJ 500 MG in SODIUM CHLORIDE 0.9% 250 ML 250 ML 250 MG IV (09:01)
[2024-04-22] MEDS: PANTOPRAZOLE INJ 40 MG VIAL IVP (09:03)
[2024-04-22] MEDS: DEXAMETHASONE SOD PHOS INJ 4 MG/ML VIAL 6 MG IV (09:03)
[2024-04-22 14:24] LABS: Base Excess, Venous -6 (-3-3); O2 Saturation, Venous 90 % (96-97); PCO2, Venous 36 mmHg (36-56); PO2, Venous 51 mmHg (15-58); pH, Venous 7.34 (7.33-7.66)
--- NOTE | 2024-04-22 14:38 | ESPR_ITS ---
Documentation for date of: 04/22/24 Subjective Subjective Interval history: Patient seen and examined at bedside. Overnight, he was said to have been hypotensive and bradycardic. After passive leg raise, he was given 500 cc of fluids. Shortly after, patient was still hypotensive and bradycardic, Precedex was stopped as it was thought to be contributing to situation. He remained the same and today was put on which showed an LVEF 51%, he subsequent received 1 L of fluids and vital signs normalized. At bedside today, patient's mentation is back to baseline and he is able to follow commands. On auscultation, minimal crackles on the right hemithorax. He reports having good urine output. Initial ABG showed a pH of 7.27 with CO2 of 40 and bicarb of 19 which reflected metabolic acidosis with inadequate compensation. Notably, although the patient was on CPAP, he had low minute ventilation and was subsequently changed back to BiPAP 10/5. Repeat blood gases pending. Exam Vital Signs Temp Pulse Resp BP Pulse Ox O2 Del Method O2 Flow Rate 96.7 F L 86 23 H 95/67 100 CPAP 15 04/22/24 06:05 04/22/24 10:12 04/22/24 10:12 04/22/24 06:30 04/22/24 12:00 04/22/24 05:06 04/21/24 16:31 FiO2 50 04/22/24 12:00 Narrative Exam GENERAL: AAOX3 NEURO: PRIVATE MORTGAGE BANKER SAFE grossly intact, moves extremities x4 HEENT: Moist mucosa. Eyes open, symmetrical, & clear CARDIO: No chest pain on palpation. Heart RRR, no obvious murmurs PULM: No noted coughing/dyspnea. Minimal crackles in right hemithorax GI: Abdomen soft, nondistended, no pain on palpation. BSx4 URO/NON PROFIT FINANCIAL CONTROLLER:: No further abnormalities noted. SKIN/MSK/EXT: No wounds/rashes/edema/amputations, no pain on palpation. Pedal pulses present B/L Objective Labs 04/22/24 06:28 04/22/24 07:59 Labs: Laboratory Results - last 24 hr 04/21/24 04/21/24 04/21/24 15:10 15:54 15:55 WBC 5.8 RBC 4.04 L Hgb 11.9 L Hct 34.3 L MCV 85 MCH 29.5 MCHC 34.7 RDW Std Deviation 42.8 Plt Count 107 L D Neut % (Auto) 70 Lymph % (Auto) 21 [place] % (Auto) 7 Eos % (Auto) 1 Baso % (Auto) 1 Neut # (Auto) 4.1 Lymph # (Auto) 1.2 [place] # (Auto) 0.4 Eos # (Auto) 0.1 Baso # (Auto) 0.0 Immature Gran # (Auto) 0.01 H Absolute Nucleated RBC 0.00 Immature Gran % 0 Nucleated RBC % 0 PT 12.7 H INR 1.2 APTT 33.3 Puncture Site ABG pH ABG pCO2 ABG pO2 ABG HCO3 ABG O2 Saturation ABG Base Excess VBG pH 7.26 L VBG pCO2 51 VBG pO2 50 VBG O2 Sat (Hiram) 81 L VBG Base Excess -4 L FiO2 Sodium 138 Potassium 4.0 Chloride 104 Carbon Dioxide 23.3 Anion Gap 11 BUN 26 H Creatinine 1.4 H Estim Creat Clear Calc 52.9 L eGFR 55 L BUN/Creatinine Ratio [address] Glu mg/dL Hemoglobin A1c Calculated Osmolality 281 Lactic Acid 2.1 H Calcium 8.9 Corrected Calcium 9.0 Phosphorus Magnesium 2.0 Total Bilirubin 1.3 H AST 65 H ALT 8 L Alkaline Phosphatase 64 Troponin I 0.036 B-Natriuretic Peptide 151 H Total Protein 6.4 Albumin 3.9 D Globulin 2.5 Albumin/Globulin Ratio 1.6 Triglycerides Cholesterol LDL Cholesterol, Calc HDL Cholesterol Cholesterol/HDL Ratio RSV Rapid Negative Group A Strep Rapid Negative 04/21/24 04/21/24 04/22/24 17:22 18:50 04:53 WBC RBC Hgb Hct MCV MCH MCHC RDW Std Deviation Plt Count Neut % (Auto) Lymph % (Auto) [place] % (Auto) Eos % (Auto) Baso % (Auto) Neut # (Auto) Lymph # (Auto) [place] # (Auto) Eos # (Auto) Baso # (Auto) Immature Gran # (Auto) Absolute Nucleated RBC Immature Gran % Nucleated RBC % PT INR APTT Puncture Site Right Radial Right Radial ABG pH 7.26 L 7.27 L ABG pCO2 47 42 ABG pO2 89 232 H D ABG HCO3 21 19 L ABG O2 Saturation 97 101 H ABG Base Excess -6 L -7 L VBG pH VBG pCO2 VBG pO2 VBG O2 Sat (Hiram) VBG Base Excess FiO2 80 50 Sodium Potassium Chloride Carbon Dioxide Anion Gap BUN Creatinine Estim Creat Clear Calc eGFR BUN/Creatinine Ratio Glucose Estimated Ave Glu mg/dL Hemoglobin A1c Calculated Osmolality Lactic Acid 4.2 H* Calcium Corrected Calcium Phosphorus Magnesium Total Bilirubin AST ALT Alkaline Phosphatase Troponin I B-Natriuretic Peptide Total Protein Albumin Globulin Albumin/Globulin Ratio Triglycerides Cholesterol LDL Cholesterol, Calc HDL Cholesterol Cholesterol/HDL Ratio RSV Rapid Group A Strep Rapid 04/22/24 04/22/24 04/22/24 06:28 07:59 14:10 WBC 6.3 RBC 3.24 L Hgb 9.7 L D Hct 27.9 L MCV 86 MCH 29.9 MCHC 34.8 RDW Std Deviation 44.7 H Plt Count 106 L Neut % (Auto) 89 H Lymph % (Auto) 6 L [place] % (Auto) 4 Eos % (Auto) 0 Baso % (Auto) 0 Neut # (Auto) 5.6 Lymph # (Auto) 0.4 L [place] # (Auto) 0.3 Eos # (Auto) 0.0 Baso # (Auto) 0.0 Immature Gran # (Auto) 0.07 H Absolute Nucleated RBC 0.00 Immature Gran % 1 H Nucleated RBC % 0 PT INR APTT Puncture Site ABG pH ABG pCO2 ABG pO2 ABG HCO3 ABG O2 Saturation ABG Base Excess VBG pH 7.34 VBG pCO2 36 D VBG pO2 51 VBG O2 Sat (Hiram) 90 L VBG Base Excess -6 L FiO2 Sodium 141 Potassium 4.4 Chloride 110 H Carbon Dioxide 20.8 Anion Gap 10 BUN 26 H Creatinine 0.9 D Estim Creat Clear Calc 78.5 eGFR > 60 BUN/Creatinine Ratio 29 H Glucose [address] Glu mg/dL 88 Hemoglobin A1c 4.7 L Calculated Osmolality 292 Lactic Acid 2.0 Calcium 7.9 L Corrected Calcium 8.3 L Phosphorus 2.5 Magnesium 1.6 Total Bilirubin 0.6 D AST 58 H ALT 16 Alkaline Phosphatase 42 L D Troponin I B-Natriuretic Peptide Total Protein 5.6 L Albumin 3.5 Globulin 2.1 L Albumin/Globulin Ratio 1.7 Triglycerides 61 Cholesterol 137 LDL Cholesterol, Calc 75 HDL Cholesterol 50 Cholesterol/HDL Ratio 2.7 L RSV Rapid Group A Strep Rapid ABG Interpretation ABG results: 04/21/24 04/21/24 04/22/24 15:10 17:22 04:53 ABG pH 7.26 L 7.27 L ABG pCO2 47 42 ABG pO2 89 232 H D ABG HCO3 21 19 L ABG O2 Saturation 97 101 H ABG Base Excess -6 L -7 L VBG pH 7.26 L VBG pCO2 51 VBG pO2 50 VBG Base Excess -4 L 04/22/24 14:10 ABG pH ABG pCO2 ABG pO2 ABG HCO3 ABG O2 Saturation ABG Base Excess VBG pH 7.34 VBG pCO2 36 D VBG pO2 51 VBG Base Excess -6 L Quality Measures Quality Measures none Advance care planning discussed with:: patient Assessment & Plan Assessment Current Active Medications: Generic Name Dose Route Start Last Admin Trade Name Freq PRN Reason Stop Dose Admin Acetaminophen 650 mg 04/21/24 17:27 Acetaminophen 325 Mg Tablet PO 05/21/24 17:26 Q6H PRN PAIN OR FEVER > 101 Albuterol/Ipratropium 3 ml 04/21/24 19:00 04/22/24 10:11 Albuterol/Ipratropium (Duoneb) Rt Nicolasa 3 Ml Nebu INH 05/21/24 18:59 3 ml Q4HRRT SUZY Administration Dexamethasone Sodium Phosphate 6 mg 04/22/24 09:00 04/22/24 09:03 Dexamethasone Sod Phos Inj 4 Mg/Ml Vial IV 04/30/24 08:59 6 mg QDAY SUZY Administration Protocol Enoxaparin Sodium 40 mg 04/22/24 09:00 04/22/24 09:00 Enoxaparin Sod Inj 40 Mg/0.4 Ml Syringe SC 05/06/24 08:59 40 mg QDAY SUZY Administration Dexmedetomidine/Sodium Chloride 200 mcg in 50 mls @ 4.082 mls/hr 04/21/24 18:35 04/22/24 02:42 Precedex Ivpb IV 05/21/24 18:34 0 mcg/kg/hr .[id number] PRN 0 mls/hr Per PROTOCOL Titration Protocol 0.2 MCG/KG/HR Azithromycin 500 mg/ Sodium 250 mls @ 250 mls/hr 04/22/24 09:00 04/22/24 09:01 Chloride IV 04/29/24 08:59 250 mls/hr QDAY SUZY Administration Ceftriaxone Sodium 1,000 mg/ 50 mls @ 100 mls/hr 04/22/24 09:00 04/22/24 09:00 Sodium Chloride IV 04/29/24 08:59 100 mls/hr QDAY SUZY Administration Remdesivir 100 mg/ Sodium 100 mls @ 100 mls/hr 04/22/24 14:00 Chloride IV 04/25/24 14:59 QDAY@1400 SUZY Protocol Ondansetron HCl 4 mg 04/21/24 17:27 04/22/24 00:21 Ondansetron Inj 2 Mg/Ml Inj 2 Ml IV 05/21/24 17:26 4 mg Q6H PRN Administration NAUSEA OR VOMITING Protocol Pantoprazole Sodium 40 mg 04/22/24 09:00 04/22/24 09:03 Pantoprazole Inj 40 Mg Vial IVP 05/22/24 08:59 40 mg QDAY SUZY Administration Plan Summary:The patient is a 69-year-old male with a past medical history of CAD status post stent who presented to the ED on 04/21/2024 with complaints of shortness of breath, cough and altered mentation. Per at bedside, patient started complaining of a sore throat yesterday as well as was warm to touch, and having chills after which they initially presented to the ED. Neuro #Acute encephalopathy- resolved #Metabolic vs Hypoxic The patient presented with altered mental status from, initial blood glucose showed hyperglycemia. Likely metabolic from hypoglycemia Precedex drip-agitation Cardiovascular #History of CAD status post stent The patient apparently has had history of CAD with 1 stent placed about 8 years ago. Has had no other cardiac events since then, no chest pain at this admission. EKG showed sinus rhythm, no ST or T changes. Respiratory #Acute hypoxic respiratory failure #COVID-pneumonia Patient has a history of COVID years ago. He presented yesterday with sore throat, cough and fever and tested positive for COVID. Today, patient has worsening times and maxed out on high flow oxygen, was placed on BiPAP and eventually CPAP to optimize PEEP. 04/12/2024- Initial ABG showed a pH of 7.27 with CO2 of 40 and bicarb of 19 which reflected metabolic acidosis with inadequate compensation. Notably, although the patient was on CPAP, he had low minute ventilation and was subsequently changed back to BiPAP 10/5. Plan: -Continue on BIPAP 10/5 -Remdesivir -IV Dexamethasone for a total of 10days -IV ceftriaxone and azithromycin -Breathing treatments GI #Transaminitis- improving Mildly elevated AST and ALT, likely to be related to COVID infection Will continue to monitor LFTs Renal #Acute kidney injury- resolved #Likely prerenal The patient presented with decreased oral intake in the last 2 days, states that he has not had urine output in the last 24 hours. On examination, patient is hypovolemic. Received 2.5L of fluids in total Endocrine #Hypoglycemia The patient presented with a blood glucose of 30, received 1 amp of D50. Will continue to monitor blood glucose, D10 if necessary 04/22/2024- Blood glucose this morning 219, will continue checks Q6H Heme #Anemia Hemoglobin 11.9, looks to be about baseline. Will follow-up with an iron panel ID See resp as above Health maintenance: Dispo: ICU for acute hypoxic respiratory failure---->downgraded to telemetry Diet: NPO DVT: Lovenox Garcia: None Lines: Peripheral Code: Full Case was discussed with attending physician, Dr Mat Laboy MD PGY-1 Disclaimer: This note was dictated by speech recognition. Minor errors in patrol deputy sheriff may be present due to voice recognition software. Attending Provider Attestation/Addendum pt seen and examined . In brief this is a 69-year-old male admitted yesterday for acute hypoxic respiratory failure and COVID 19. He was started on remdesivir and dexamethasone. Have been able to decrease his FiO2 needs from 100% FiO2 to 35% FiO2 with sats in the mid 90s. He did have an ABG overnight which did show some CO2 retention therefore this morning his CPAP which has been titrated down to 5 was transitioned to a BiPAP at 10/5 with a follow-up ABG for his respiratory acidosis which was mild. Overnight he was hypotensive and did require 1 L of fluid for IV bolus with resolution of his hypotension. His follow-up lactate trended back down. Overall he is much improved and off of Precedex. Today he appears stable for downgrade to telemetry. Case discussed with ICU team Labs, imaging records reviewed Approximately 40 minutes required for eval, exam, review, intervention and discussion along with formulation of plan of care for this gentleman with acute hypoxic respiratory failure.
[2024-04-22] MEDS: REMDESIVIR INJ 100 MG in SODIUM CHLORIDE 0.9% 100 ML IV (15:33)
--- NOTE | 2024-04-22 16:24 | PD.RESPRO ---
Documentation for date of: 04/22/24 Subjective Subjective Interval history: Patient seen and examined at bedside, Patient admitted for Acute hypoxic respiratory failure secondary to COVID pneumonia, currently on IV remdesevir, antibiotics and steroids, currently on BiPA due to low minute ventilations while on CPAP, as per ICU sign out. On examination some crackles noted on the right side. Pending follow up ABGs. Patient has been having episodes of hypoglycemia will continue with q6H glucose checks. Exam Vital Signs Temp Pulse Resp BP Pulse Ox O2 Del Method O2 Flow Rate 96.7 F L 84 24 H 95/67 100 CPAP 10 04/22/24 06:05 04/22/24 14:49 04/22/24 14:49 04/22/24 06:30 04/22/24 14:49 04/22/24 05:06 04/22/24 14:49 FiO2 50 04/22/24 12:00 Narrative Exam Physical Exam GENERAL: NAD, AAOx3 HEENT: Moist mucosa. Eyes open, symmetrical, & clear CARDIO: Heart RRR, no obvious murmurs PULM: No noted coughing/dyspnea Rt sided crackles. GI: Abdomen soft, nondistended, no pain on palpation. BSx4 SKIN/MSK/EXT: No wounds/rashes/edema/amputations, no pain on palpation. Pedal pulses present B/L NEURO: AAOx3, no focal neuro deficits, able to move all 4 extremities Objective Labs 04/22/24 06:28 04/22/24 07:59 Labs: Laboratory Results - last 24 hr 04/21/24 04/21/24 04/21/24 15:10 15:54 15:55 WBC RBC Hgb Hct MCV MCH MCHC RDW Std Deviation Plt Count Neut % (Auto) Lymph % (Auto) [place] % (Auto) Eos % (Auto) Baso % (Auto) Neut # (Auto) Lymph # (Auto) [place] # (Auto) Eos # (Auto) Baso # (Auto) Immature Gran # (Auto) Absolute Nucleated RBC Immature Gran % Nucleated RBC % PT 12.7 H INR 1.2 APTT 33.3 Puncture Site ABG pH ABG pCO2 ABG pO2 ABG HCO3 ABG O2 Saturation ABG Base Excess VBG pH VBG pCO2 VBG pO2 VBG O2 Sat (Hiram) VBG Base Excess FiO2 Sodium 138 Potassium 4.0 Chloride 104 Carbon Dioxide 23.3 Anion Gap 11 BUN 26 H Creatinine 1.4 H Estim Creat Clear Calc 52.9 L eGFR 55 L BUN/Creatinine Ratio [address] Glu mg/dL Hemoglobin A1c Calculated Osmolality 281 Lactic Acid Calcium 8.9 Corrected Calcium 9.0 Phosphorus Magnesium 2.0 Total Bilirubin 1.3 H AST 65 H ALT 8 L Alkaline Phosphatase 64 Troponin I 0.036 Total Protein 6.4 Albumin 3.9 D Globulin 2.5 Albumin/Globulin Ratio 1.6 Triglycerides Cholesterol LDL Cholesterol, Calc HDL Cholesterol Cholesterol/HDL Ratio RSV Rapid Negative Group A Strep Rapid Negative 04/21/24 04/21/24 04/22/24 17:22 18:50 04:53 WBC RBC Hgb Hct MCV MCH MCHC RDW Std Deviation Plt Count Neut % (Auto) Lymph % (Auto) [place] % (Auto) Eos % (Auto) Baso % (Auto) Neut # (Auto) Lymph # (Auto) [place] # (Auto) Eos # (Auto) Baso # (Auto) Immature Gran # (Auto) Absolute Nucleated RBC Immature Gran % Nucleated RBC % PT INR APTT Puncture Site Right Radial Right Radial ABG pH 7.26 L 7.27 L ABG pCO2 47 42 ABG pO2 89 232 H D ABG HCO3 21 19 L ABG O2 Saturation 97 101 H ABG Base Excess -6 L -7 L VBG pH VBG pCO2 VBG pO2 VBG O2 Sat (Hiram) VBG Base Excess FiO2 80 50 Sodium Potassium Chloride Carbon Dioxide Anion Gap BUN Creatinine Estim Creat Clear Calc eGFR BUN/Creatinine Ratio Glucose Estimated Ave Glu mg/dL Hemoglobin A1c Calculated Osmolality Lactic Acid 4.2 H* Calcium Corrected Calcium Phosphorus Magnesium Total Bilirubin AST ALT Alkaline Phosphatase Troponin I Total Protein Albumin Globulin Albumin/Globulin Ratio Triglycerides Cholesterol LDL Cholesterol, Calc HDL Cholesterol Cholesterol/HDL Ratio RSV Rapid Group A Strep Rapid 04/22/24 04/22/24 04/22/24 06:28 07:59 14:10 WBC 6.3 RBC 3.24 L Hgb 9.7 L D Hct 27.9 L MCV 86 MCH 29.9 MCHC 34.8 RDW Std Deviation 44.7 H Plt Count 106 L Neut % (Auto) 89 H Lymph % (Auto) 6 L [place] % (Auto) 4 Eos % (Auto) 0 Baso % (Auto) 0 Neut # (Auto) 5.6 Lymph # (Auto) 0.4 L [place] # (Auto) 0.3 Eos # (Auto) 0.0 Baso # (Auto) 0.0 Immature Gran # (Auto) 0.07 H Absolute Nucleated RBC 0.00 Immature Gran % 1 H Nucleated RBC % 0 PT INR APTT Puncture Site ABG pH ABG pCO2 ABG pO2 ABG HCO3 ABG O2 Saturation ABG Base Excess VBG pH 7.34 VBG pCO2 36 D VBG pO2 51 VBG O2 Sat (Hiram) 90 L VBG Base Excess -6 L FiO2 Sodium 141 Potassium 4.4 Chloride 110 H Carbon Dioxide 20.8 Anion Gap 10 BUN 26 H Creatinine 0.9 D Estim Creat Clear Calc 78.5 eGFR > 60 BUN/Creatinine Ratio 29 H Glucose [address] Glu mg/dL 88 Hemoglobin A1c 4.7 L Calculated Osmolality 292 Lactic Acid 2.0 Calcium 7.9 L Corrected Calcium 8.3 L Phosphorus 2.5 Magnesium 1.6 Total Bilirubin 0.6 D AST 58 H ALT 16 Alkaline Phosphatase 42 L D Troponin I Total Protein 5.6 L Albumin 3.5 Globulin 2.1 L Albumin/Globulin Ratio 1.7 Triglycerides 61 Cholesterol 137 LDL Cholesterol, Calc 75 HDL Cholesterol 50 Cholesterol/HDL Ratio 2.7 L RSV Rapid Group A Strep Rapid ABG Interpretation ABG results: 04/21/24 04/21/24 04/22/24 15:10 17:22 04:53 ABG pH 7.26 L 7.27 L ABG pCO2 47 42 ABG pO2 89 232 H D ABG HCO3 21 19 L ABG O2 Saturation 97 101 H ABG Base Excess -6 L -7 L VBG pH 7.26 L VBG pCO2 51 VBG pO2 50 VBG Base Excess -4 L 04/22/24 14:10 ABG pH ABG pCO2 ABG pO2 ABG HCO3 ABG O2 Saturation ABG Base Excess VBG pH 7.34 VBG pCO2 36 D VBG pO2 51 VBG Base Excess -6 L Quality Measures Quality Measures none Advance care planning discussed with:: patient Assessment & Plan Assessment Current Active Medications: Generic Name Dose Route Start Last Admin Trade Name Freq PRN Reason Stop Dose Admin Acetaminophen 650 mg 04/21/24 17:27 Acetaminophen 325 Mg Tablet PO 05/21/24 17:26 Q6H PRN PAIN OR FEVER > 101 Albuterol/Ipratropium 3 ml 04/21/24 19:00 04/22/24 14:47 Albuterol/Ipratropium (Duoneb) Rt Nicolasa 3 Ml Nebu INH 05/21/24 18:59 3 ml Q4HRRT SUZY Administration Dexamethasone Sodium Phosphate 6 mg 04/22/24 09:00 04/22/24 09:03 Dexamethasone Sod Phos Inj 4 Mg/Ml Vial IV 04/30/24 08:59 6 mg QDAY SUZY Administration Protocol Enoxaparin Sodium 40 mg 04/22/24 09:00 04/22/24 09:00 Enoxaparin Sod Inj 40 Mg/0.4 Ml Syringe SC 05/06/24 08:59 40 mg QDAY SUZY Administration Dexmedetomidine/Sodium Chloride 200 mcg in 50 mls @ 4.082 mls/hr 04/21/24 18:35 04/22/24 02:42 Precedex Ivpb IV 05/21/24 18:34 0 mcg/kg/hr .[id number] PRN 0 mls/hr Per PROTOCOL Titration Protocol 0.2 MCG/KG/HR Azithromycin 500 mg/ Sodium 250 mls @ 250 mls/hr 04/22/24 09:00 04/22/24 09:01 Chloride IV 04/29/24 08:59 250 mls/hr QDAY SUZY Administration Ceftriaxone Sodium 1,000 mg/ 50 mls @ 100 mls/hr 04/22/24 09:00 04/22/24 09:00 Sodium Chloride IV 04/29/24 08:59 100 mls/hr QDAY SUZY Administration Remdesivir 100 mg/ Sodium 100 mls @ 100 mls/hr 04/22/24 14:00 04/22/24 15:33 Chloride IV 04/25/24 14:59 100 mls/hr QDAY@1400 SUZY Administration Protocol Ondansetron HCl 4 mg 04/21/24 17:27 04/22/24 00:21 Ondansetron Inj 2 Mg/Ml Inj 2 Ml IV 05/21/24 17:26 4 mg Q6H PRN Administration NAUSEA OR VOMITING Protocol Pantoprazole Sodium 40 mg 04/22/24 09:00 04/22/24 09:03 Pantoprazole Inj 40 Mg Vial IVP 05/22/24 08:59 40 mg QDAY SUZY Administration Plan 69-year-old male with a past medical history of CAD status post stent who presented to the ED on 04/21/2024 with complaints of shortness of breath, cough and altered mentation. Per at bedside, patient started complaining of a sore throat yesterday as well as was warm to touch, and having chills after which they initially presented to the ED. #Acute hypoxic respiratory failure #COVID-pneumonia Patient has a history of COVID years ago. He presented on 04/21/2024 with sore throat, cough and fever and tested positive for COVID. Today, patient has worsening times and maxed out on high flow oxygen, was placed on BiPAP and eventually CPAP to optimize PEEP. 04/12/2024- Initial ABG showed a pH of 7.27 with CO2 of 40 and bicarb of 19 which reflected metabolic acidosis with inadequate compensation. Notably, although the patient was on CPAP, he had low minute ventilation and was subsequently changed back to BiPAP 10/5. -Continue on BIPAP 10/5 -Remdesivir -IV Dexamethasone for a total of 10days -IV ceftriaxone and azithromycin -Breathing treatments #History of CAD status post stent The patient apparently has had history of CAD with 1 stent placed about 8 years ago. Has had no other cardiac events since then, no chest pain at this admission. EKG showed sinus rhythm, no ST or T changes. #Transaminitis- resolving Mildly elevated AST and ALT, likely to be related to COVID infection -Will continue to monitor LFTs #Hypoglycemia The patient presented with a blood glucose of 30, received 1 amp of D50. Will continue to monitor blood glucose, D10 if necessary 04/22/2024- Blood glucose this morning 219, will continue checks Q6H #Normocytic Anemia Hemoglobin 11.9, looks to be about baseline. Will follow-up with an iron panel #Acute encephalopathy- resolved likely due to hypoglycemia s/p precedex drip #Acute kidney injury- resolved Case discussed with my attending Dr. Jose Parra MD PGY-1 Disposition: ICU--> Tele Fluids: None Feeding: NPO Thrombo prophylaxis: lovenox Gastric Ulcer prophylaxis: Pantoprazole 40 mg IV daily CODE STATUS: Full code Disclaimer: This note was dictated by speech recognition. Minor errors in dry cleaning attendant may be present due to voice recognition software. Attending Provider Attestation/Addendum I attest that I was physically present for the evaluation, physical examination, lab and imaging review of the patient with the residents. I discussed the case with the residents and agree with the findings and plans of care as documented above. Patient is a 69 years old male with past medical history of CAD status post stents who presented to the ED on 04/21/2024 for shortness of breath, cough and altered mental status.? Patient was found to be COVID-positive, was placed on BiPAP.? Patient become agitated while on BiPAP/CPAP and was admitted to ICU and started on Precedex drip.? This morning, since mentation improved, alert and oriented, able to follow commands.? Continues to be on BiPAP 11/12.? Transferred to medical floor for further management.? We will continue with IV Rocephin, azithromycin and Decadron.? Will also continue with supplemental oxygen and BiPAP, 11/12, wean as tolerated.? Patient also had episode of hypoglycemia, we will continue with close monitoring. Mohini Garcia MD
[2024-04-23] VITALS (13 sets, daily range): BP systolic 115–126; BP diastolic 52–84; PULSE 83–105; RESP 14–100; TEMP 36.1–36.9; O2SAT 92–100
[2024-04-23 06:01] LABS: Basophils % (Auto) 0 % (0-2.5); Eosinophils % (Auto) 0 % (0-10); Hematocrit 29.7 % (41.0-53.0); Hemoglobin 10.3 g/dL (13.5-16.0); Immature Granulocytes % (Auto) 1 % (0-0); Immature Granulocytes Auto 0.11 Thou/mm3 (0.00-0.00); Lymphocytes # (Auto) 0.6 Thou/mm3 (1.0-4.8); Lymphocytes % (Auto) 7 % (10-50); Mean Corpuscular HGB Conc 34.7 g/dl (31.0-37.0); Mean Corpuscular Hemoglobin 29.3 pg (25.0-35.0); Mean Corpuscular Volume 84 fL (80-100); Monocytes # (Auto) 0.3 Thou/mm3 (0.0-0.8); Monocytes % (Auto) 3 % (0-12); Neutrophils # (Auto) 7.5 Thou/mm3 (1.8-7.7); Neutrophils % (Auto) 89 % (37-80); Nucleated Red Blood Cell % 0 /100 WBC (0); Platelet Count 94 Thou/mm3 (140-440); RDW Standard Deviation 44.3 fL (35.1-43.9); Red Blood Count 3.52 Miln/mm3 (4.50-5.90); White Blood Count 8.5 Thou/mm3 (3.8-10.6)
[2024-04-23 06:20] LABS: Iron 78 mcg/dL (65-175); Percent Iron Saturation 39 % (20-55); Total Iron Binding Capacity 198 mcg/dL (250-425); Unsaturated Iron Binding 120 (225-295)
[2024-04-23 06:23] LABS: Alanine Aminotransferase 19 U/L (10-49); Albumin, Serum 3.6 gm/dL (3.4-4.8); Albumin/Globulin Ratio 1.6 (1.2-2.2); Alkaline Phosphatase 48 U/L (46-116); Anion Gap 9 (7-16); Aspartate Amino Transferase 56 U/L (0-34); BUN/Creatinine Ratio 40 Ratio (12-20); Bilirubin,Total 0.5 mg/dL (0.3-1.2); Blood Urea Nitrogen 28 mg/dL (9-23); Calcium 8.6 mg/dL (8.3-10.6); Calcium (Corrected) 8.9 mg/dL (8.5-10.1); Carbon Dioxide 22.5 mMol/L (20.0-31.0); Chloride 113 mMol/L (98-107); Creatinine (Component) 0.7 mg/dL (0.6-1.3); Globulin 2.2 gm/dL (2.3-3.5); Glucose 170 mg/dL (74-106); Magnesium 2.2 mg/dL (1.6-2.6); Osmolality,Calculated 296 (275-295); Phosphorous 1.3 mg/dL (2.4-5.1); Potassium 4.1 mMol/L (3.4-5.1); Sodium 144 mMol/L (136-145); Total Protein 5.8 gm/dL (5.7-8.2); eGFR > 60 See Note
[2024-04-23] MEDS: ALBUTEROL/IPRATROPIUM (Duoneb) RT SOL 3 ML NEBU INH ×3 (06:35→14:52)
[2024-04-23] MEDS: PANTOPRAZOLE INJ 40 MG VIAL IVP (09:45)
[2024-04-23] MEDS: DEXAMETHASONE SOD PHOS INJ 4 MG/ML VIAL 6 MG IV (09:45)
[2024-04-23] MEDS: cefTRIAXone 1,000 MG in SODIUM CHLORIDE 0.9% (Popper) 50 ML 100 MG IV (09:46)
[2024-04-23] MEDS: SOD PHOS ADDITIVE 22.5 MMOL in SODIUM CHLORIDE 0.9% 500 ML 500 ML 82.778 MMOL IV (09:46)
[2024-04-23] MEDS: AZITHROMYCIN INJ 500 MG in SODIUM CHLORIDE 0.9% 250 ML 250 ML 250 MG IV (09:46)
[2024-04-23] MEDS: ENOXAPARIN SOD INJ 40 MG/0.4 ML SYRINGE SC (09:54)
--- NOTE | 2024-04-23 11:56 | PC.SS ---
SS spoke to patient's , Nhi. Nhi confirmed she and patient reside together in the home. states she initially had COVID and thinks she might have given it to her . Patient is very independent with ADL's. No DME. No respiratory devices. Patient was admitted for AHFR. Patient has Medicare but no prescription coverage per . PCP: Dr. Valdovinos. Last appt. was 2 weeks ago. Pharmacy: [facility]. Discharge plan is to return home once stable. is the alt medical decision maker. alt medical decision maker: , Nhi, transportation: uber/taxi /family
--- NOTE | 2024-04-23 14:22 | PCS.ST ---
Swallowing evaluation completed. Diet entered, dysphagia 2, thin liquids. For details please see report. ST to follow.
[2024-04-23] MEDS: REMDESIVIR INJ 100 MG in SODIUM CHLORIDE 0.9% 100 ML IV (14:36)
--- NOTE | 2024-04-23 15:17 | PD.RESPRO ---
Documentation for date of: 04/23/24 Subjective Subjective Interval history: No overnight events. Patient seen and examined at bedside. Endorsed mild pleuritic pain with deep inspiration, denied shortness of breath, fever, chills, nausea, vomiting, abdominal pain. Per nurse patient has had waxing and waning orientation, at time of exam patient A&O x 3, this is a noted change of the day. Continuous reorientation for delirium. Patient passed bedside swallow screen, started dysphagia diet, speech therapy eval pending. Continue current medical management. Exam Vital Signs Temp Pulse Resp BP Pulse Ox O2 Del Method O2 Flow Rate 98.1 F 101 H 24 H 116/82 100 Room Air 4 04/23/24 12:00 04/23/24 14:52 04/23/24 14:52 04/23/24 12:00 04/23/24 14:52 04/23/24 12:00 04/22/24 20:00 FiO2 50 04/22/24 12:00 Narrative Exam PE: Gen: Well-developed and well-nourished. HEENT: NCAT, PERRLA, EOMI, MMM, anicteric conjunctivae. CVS: normal S1 and S2. RRR. No M/R/G. Resp: CTA B/L. No rhonchi, rales, crackles or wheezing. Abd: soft, non-tender, non-distended. MSK: Good ROM in BUE & BLE. No edema or rash. Neuro: CN II-XII grossly intact. Strength 5/5 in BUE & BLE. Alert and oriented x3. Psych: appropriate mood and affect. Objective Labs 04/23/24 05:05 04/23/24 05:05 Labs: Laboratory Results - last 24 hr 04/23/24 05:05 WBC 8.5 RBC 3.52 L Hgb 10.3 L Hct 29.7 L MCV 84 MCH 29.3 MCHC 34.7 RDW Std Deviation 44.3 H Plt Count 94 L Neut % (Auto) 89 H Lymph % (Auto) 7 L [place] % (Auto) 3 Eos % (Auto) 0 Baso % (Auto) 0 Neut # (Auto) 7.5 Lymph # (Auto) 0.6 L [place] # (Auto) 0.3 Eos # (Auto) 0.0 Baso # (Auto) 0.0 Immature Gran # (Auto) 0.11 H Absolute Nucleated RBC 0.00 Immature Gran % 1 H Nucleated RBC % 0 Sodium 144 Potassium 4.1 Chloride 113 H Carbon Dioxide 22.5 Anion Gap 9 BUN 28 H Creatinine 0.7 Estim Creat Clear Calc 101.0 eGFR > 60 BUN/Creatinine Ratio 40 H Glucose 170 H Calculated Osmolality 296 H Calcium 8.6 Corrected Calcium 8.9 Phosphorus 1.3 L Magnesium 2.2 Iron 78 TIBC 198 L Iron Saturation 39 Unsat Iron Binding 120 L Total Bilirubin 0.5 AST 56 H ALT 19 Alkaline Phosphatase 48 Total Protein 5.8 Albumin 3.6 Globulin 2.2 L Albumin/Globulin Ratio 1.6 ABG Interpretation ABG results: 04/21/24 04/21/24 04/22/24 15:10 17:22 04:53 ABG pH 7.26 L 7.27 L ABG pCO2 47 42 ABG pO2 89 232 H D ABG HCO3 21 19 L ABG O2 Saturation 97 101 H ABG Base Excess -6 L -7 L VBG pH 7.26 L VBG pCO2 51 VBG pO2 50 VBG Base Excess -4 L 04/22/24 14:10 ABG pH ABG pCO2 ABG pO2 ABG HCO3 ABG O2 Saturation ABG Base Excess VBG pH 7.34 VBG pCO2 36 D VBG pO2 51 VBG Base Excess -6 L Quality Measures Quality Measures VTE prophylaxis Advance care planning discussed with:: patient Assessment & Plan Assessment Current Active Medications: Generic Name Dose Route Start Last Admin Trade Name Freq PRN Reason Stop Dose Admin Acetaminophen 650 mg 04/21/24 17:27 Acetaminophen 325 Mg Tablet PO 05/21/24 17:26 Q6H PRN PAIN OR FEVER > 101 Albuterol/Ipratropium 3 ml 04/21/24 19:00 04/23/24 14:52 Albuterol/Ipratropium (Duoneb) Rt Nicolasa 3 Ml Nebu INH 05/21/24 18:59 3 ml Q4HRRT SUZY Administration Dexamethasone Sodium Phosphate 6 mg 04/22/24 09:00 04/23/24 09:45 Dexamethasone Sod Phos Inj 4 Mg/Ml Vial IV 04/30/24 08:59 6 mg QDAY SUZY Administration Protocol Enoxaparin Sodium 40 mg 04/22/24 09:00 04/23/24 09:54 Enoxaparin Sod Inj 40 Mg/0.4 Ml Syringe SC 05/06/24 08:59 40 mg QDAY SUZY Administration Azithromycin 500 mg/ Sodium 250 mls @ 250 mls/hr 04/22/24 09:00 04/23/24 09:46 Chloride IV 04/29/24 08:59 250 mls/hr QDAY SUZY Administration Ceftriaxone Sodium 1,000 mg/ 50 mls @ 100 mls/hr 04/22/24 09:00 04/23/24 09:46 Sodium Chloride IV 04/29/24 08:59 100 mls/hr QDAY SUZY Administration Remdesivir 100 mg/ Sodium 100 mls @ 100 mls/hr 04/22/24 14:00 04/23/24 14:36 Chloride IV 04/25/24 14:59 100 mls/hr QDAY@1400 SUZY Administration Protocol Ondansetron HCl 4 mg 04/21/24 17:27 04/22/24 00:21 Ondansetron Inj 2 Mg/Ml Inj 2 Ml IV 05/21/24 17:26 4 mg Q6H PRN Administration NAUSEA OR VOMITING Protocol Pantoprazole Sodium 40 mg 04/22/24 09:00 04/23/24 09:45 Pantoprazole Inj 40 Mg Vial IVP 05/22/24 08:59 40 mg QDAY SUZY Administration Plan 69-year-old male with a past medical history of CAD status post stent who presented to the ED on 04/21/2024 with complaints of shortness of breath, cough and altered mentation. Per at bedside, patient started complaining of a sore throat yesterday as well as was warm to touch, and having chills after which they initially presented to the ED. #Acute hypoxic respiratory failure, resolved #COVID-pneumonia Patient has a history of COVID years ago. He presented on 04/21/2024 with sore throat, cough and fever and tested positive for COVID. Today, patient has worsening times and maxed out on high flow oxygen, was placed on BiPAP and eventually CPAP to optimize PEEP. 04/12/2024- Initial ABG showed a pH of 7.27 with CO2 of 40 and bicarb of 19 which reflected metabolic acidosis with inadequate compensation. Notably, although the patient was on CPAP, he had low minute ventilation and was subsequently changed back to BiPAP 11/12. -Continue on BIPAP as needed -Remdesivir -IV Dexamethasone for a total of 10days -IV ceftriaxone and azithromycin -Breathing treatments #History of CAD status post stent The patient apparently has had history of CAD with 1 stent placed about 8 years ago. Has had no other cardiac events since then, no chest pain at this admission. EKG showed sinus rhythm, no ST or T changes. -Resume home meds: Aspirin 81 mg p.o. daily #Transaminitis- resolving Mildly elevated AST and ALT, likely to be related to COVID infection -Will continue to monitor LFTs #Hypoglycemia The patient presented with a blood glucose of 30, received 1 amp of D50. Will continue to monitor blood glucose, D10 if necessary 04/22/2024- Blood glucose this morning 219, will continue checks Q6H #Normocytic Anemia Hemoglobin 11.9, looks to be about baseline. Iron panel shows significant iron deficiency anemia, recommend starting iron outpatient as patient is acutely infected. -Monitor H&H, transfuse as needed -Follow-up outpatient #Acute encephalopathy- resolved likely due to hypoglycemia s/p precedex drip #Acute kidney injury- resolved Fluids: None Feeding: Dysphagia level 2, regular Thrombo prophylaxis: lovenox Gastric Ulcer prophylaxis: Pantoprazole 40 mg IV daily CODE STATUS: Full code Plan of care discussed with attending Dr. Garcia. Anurag Mcfarlane MD PGY?1 Disclaimer: This note was dictated by speech recognition. Minor errors in guest services agent may be present due to voice recognition software. Attending Provider Attestation/Addendum I attest that I was physically present for the evaluation, physical examination, lab and imaging review of the patient with the residents. I discussed the case with the residents and agree with the findings and plans of care as documented above. At bedside today, patient is alert but oriented x 2 only. As per the sitter at bedside, patient has been having waxing and waning mentation. Currently on room air, saturating well. Continues to be on Decadron, remdesivir, Rocephin and azithromycin. Awaiting physical therapy and speech therapy evaluation. We will also monitor him closely, frequent reorientation and bedside sitter for delirium. Mohini Garcia MD
[2024-04-23] MEDS: OLANZapine 5 MG TABLET 10 MG PO (17:15)
[2024-04-23] MEDS: ASPIRIN 81 MG CHEW PO (17:15)
--- NOTE | 2024-04-23 17:53 | PC.NURSE ---
pt.became very restless,agitated,hallucinating,trying to get out of bed,became combative Mendy Jama was called,new order from
[2024-04-24] VITALS (14 sets, daily range): BP systolic 117–136; BP diastolic 63–91; PULSE 72–96; RESP 14–99; TEMP 36.3–36.7; O2SAT 95–100; BMI 21.9
[2024-04-24 05:45] LABS: Basophils % (Auto) 0 % (0-2.5); Eosinophils % (Auto) 0 % (0-10); Hematocrit 27.8 % (41.0-53.0); Hemoglobin 9.5 g/dL (13.5-16.0); Immature Granulocytes % (Auto) 1 % (0-0); Immature Granulocytes Auto 0.04 Thou/mm3 (0.00-0.00); Lymphocytes # (Auto) 0.5 Thou/mm3 (1.0-4.8); Lymphocytes % (Auto) 8 % (10-50); Mean Corpuscular HGB Conc 34.2 g/dl (31.0-37.0); Mean Corpuscular Hemoglobin 29.4 pg (25.0-35.0); Mean Corpuscular Volume 86 fL (80-100); Monocytes # (Auto) 0.2 Thou/mm3 (0.0-0.8); Monocytes % (Auto) 4 % (0-12); Neutrophils # (Auto) 5.8 Thou/mm3 (1.8-7.7); Neutrophils % (Auto) 88 % (37-80); Nucleated Red Blood Cell % 0 /100 WBC (0); Platelet Count 99 Thou/mm3 (140-440); RDW Standard Deviation 46.1 fL (35.1-43.9); Red Blood Count 3.23 Miln/mm3 (4.50-5.90); White Blood Count 6.6 Thou/mm3 (3.8-10.6)
[2024-04-24 06:28] LABS: Alanine Aminotransferase 16 U/L (10-49); Albumin, Serum 3.4 gm/dL (3.4-4.8); Albumin/Globulin Ratio 1.6 (1.2-2.2); Alkaline Phosphatase 44 U/L (46-116); Anion Gap 9 (7-16); Aspartate Amino Transferase 36 U/L (0-34); BUN/Creatinine Ratio 37 Ratio (12-20); Bilirubin,Total 0.5 mg/dL (0.3-1.2); Blood Urea Nitrogen 26 mg/dL (9-23); Calcium 8.6 mg/dL (8.3-10.6); Calcium (Corrected) 9.1 mg/dL (8.5-10.1); Carbon Dioxide 22.6 mMol/L (20.0-31.0); Chloride 114 mMol/L (98-107); Creatinine (Component) 0.7 mg/dL (0.6-1.3); Globulin 2.1 gm/dL (2.3-3.5); Glucose 170 mg/dL (74-106); Magnesium 2.4 mg/dL (1.6-2.6); Osmolality,Calculated 299 (275-295); Potassium 4.4 mMol/L (3.4-5.1); Sodium 146 mMol/L (136-145); Total Protein 5.5 gm/dL (5.7-8.2); eGFR > 60 See Note
[2024-04-24] MEDS: ALBUTEROL/IPRATROPIUM (Duoneb) RT SOL 3 ML NEBU INH ×4 (08:15→19:05)
[2024-04-24] MEDS: DEXAMETHASONE SOD PHOS INJ 4 MG/ML VIAL 6 MG IV (10:00)
[2024-04-24] MEDS: PANTOPRAZOLE INJ 40 MG VIAL IVP (10:01)
[2024-04-24] MEDS: ENOXAPARIN SOD INJ 40 MG/0.4 ML SYRINGE SC (10:01)
[2024-04-24] MEDS: AZITHROMYCIN INJ 500 MG in SODIUM CHLORIDE 0.9% 250 ML 250 ML 250 MG IV (10:01)
[2024-04-24] MEDS: ASPIRIN 81 MG CHEW PO (10:02)
[2024-04-24] MEDS: NAPH,KPH MBDB 1 PACKET (1.5 GM) PO ×2 (10:02→21:10)
[2024-04-24] MEDS: cefTRIAXone 1,000 MG in SODIUM CHLORIDE 0.9% (Popper) 50 ML 100 MG IV (10:04)
[2024-04-24] MEDS: RINGERS LACTATED 1000 ML 1,000 ML 70 ML IV (11:33)
--- NOTE | 2024-04-24 13:35 | ESPR_ITS ---
<Statement entered by Adelaide Villalba MD - 04/24/24 15:09> I discussed with and supervised the wedding planning internship physician who took care of this patient. I personally saw and examined the patient and discussed the assessment and plan with the entire medicine team, including my attending Dr. Garcia, I agree with most of the assessment and plan as documented below Adelaide Villalba M.D. PGY-2 Documentation for date of: 04/24/24 Subjective Subjective Interval history: No overnight events. Patient seen examined at bedside. Resting comfortably, denies shortness of breath, chest pain, nausea, vomiting, fever, chills. Patient did have decreased p.o. intake, ate little of dinner or breakfast. Added lactated Ringer's at 70 mL/h. Pending PT eval. Exam Vital Signs Temp Pulse Resp BP Pulse Ox O2 Del Method O2 Flow Rate 98.0 F 73 15 126/91 H 100 Room Air 4 04/24/24 08:14 04/24/24 10:57 04/24/24 10:57 04/24/24 08:14 04/24/24 10:57 04/24/24 08:14 04/22/24 20:00 FiO2 50 04/22/24 12:00 Narrative Exam PE: Gen: Well-developed and well-nourished. HEENT: NCAT, PERRLA, EOMI, MMM, anicteric conjunctivae. CVS: normal S1 and S2. RRR. No M/R/G. Resp: CTA B/L. No rhonchi, rales, crackles or wheezing. Abd: soft, non-tender, non-distended. MSK: Good ROM in BUE & BLE. No edema or rash. Neuro: CN II-XII grossly intact. Strength 5/5 in BUE & BLE. Alert and oriented x3. Psych: appropriate mood and affect. Objective Labs 04/24/24 05:27 04/24/24 05:27 Labs: Laboratory Results - last 24 hr 04/24/24 05:27 WBC 6.6 RBC 3.23 L Hgb 9.5 L Hct 27.8 L MCV 86 MCH 29.4 MCHC 34.2 RDW Std Deviation 46.1 H Plt Count 99 L Neut % (Auto) 88 H Lymph % (Auto) 8 L Trigg % (Auto) 4 Eos % (Auto) 0 Baso % (Auto) 0 Neut # (Auto) 5.8 Lymph # (Auto) 0.5 L Trigg # (Auto) 0.2 Eos # (Auto) 0.0 Baso # (Auto) 0.0 Immature Gran # (Auto) 0.04 H Absolute Nucleated RBC 0.00 Immature Gran % 1 H Nucleated RBC % 0 Sodium 146 H Potassium 4.4 Chloride 114 H Carbon Dioxide 22.6 Anion Gap 9 BUN 26 H Creatinine 0.7 Estim Creat Clear Calc 101.0 eGFR > 60 BUN/Creatinine Ratio 37 H Glucose 170 H Calculated Osmolality 299 H Calcium 8.6 Corrected Calcium 9.1 Phosphorus 2.0 L Magnesium 2.4 Total Bilirubin 0.5 AST 36 H ALT 16 Alkaline Phosphatase 44 L Total Protein 5.5 L Albumin 3.4 Globulin 2.1 L Albumin/Globulin Ratio 1.6 ABG Interpretation ABG results: 04/21/24 04/21/24 04/22/24 15:10 17:22 04:53 ABG pH 7.26 L 7.27 L ABG pCO2 47 42 ABG pO2 89 232 H D ABG HCO3 21 19 L ABG O2 Saturation 97 101 H ABG Base Excess -6 L -7 L VBG pH 7.26 L VBG pCO2 51 VBG pO2 50 VBG Base Excess -4 L 04/22/24 14:10 ABG pH ABG pCO2 ABG pO2 ABG HCO3 ABG O2 Saturation ABG Base Excess VBG pH 7.34 VBG pCO2 36 D VBG pO2 51 VBG Base Excess -6 L Quality Measures Quality Measures VTE prophylaxis Advance care planning discussed with:: patient Assessment & Plan Assessment Current Active Medications: Generic Name Dose Route Start Last Admin Trade Name Freq PRN Reason Stop Dose Admin Acetaminophen 650 mg 04/21/24 17:27 Acetaminophen 325 Mg Tablet PO 05/21/24 17:26 Q6H PRN PAIN OR FEVER > 101 Albuterol/Ipratropium 3 ml 04/21/24 19:00 04/24/24 10:55 Albuterol/Ipratropium (Duoneb) Rt Nicolasa 3 Ml Nebu INH 05/21/24 18:59 3 ml Q4HRRT SUZY Administration Aspirin 81 mg 04/23/24 15:30 04/24/24 10:02 Aspirin 81 Mg Chew PO 05/23/24 15:29 81 mg QDAY SUZY Administration Dexamethasone Sodium Phosphate 6 mg 04/22/24 09:00 04/24/24 10:00 Dexamethasone Sod Phos Inj 4 Mg/Ml Vial IV 04/30/24 08:59 6 mg QDAY SUZY Administration Protocol Enoxaparin Sodium 40 mg 04/22/24 09:00 04/24/24 10:01 Enoxaparin Sod Inj 40 Mg/0.4 Ml Syringe SC 05/06/24 08:59 40 mg QDAY SUZY Administration Azithromycin 500 mg/ Sodium 250 mls @ 250 mls/hr 04/22/24 09:00 04/24/24 10:01 Chloride IV 04/29/24 08:59 250 mls/hr QDAY SUZY Administration Ceftriaxone Sodium 1,000 mg/ 50 mls @ 100 mls/hr 04/22/24 09:00 04/24/24 10:04 Sodium Chloride IV 04/29/24 08:59 100 mls/hr QDAY SUZY Administration Remdesivir 100 mg/ Sodium 100 mls @ 100 mls/hr 04/22/24 14:00 04/23/24 14:36 Chloride IV 04/25/24 14:59 100 mls/hr QDAY@1400 SUZY Administration Protocol Lactated Ringer's 1,000 mls @ 70 mls/hr 04/24/24 10:36 04/24/24 11:33 Lactated Ringers IV 04/25/24 00:53 70 mls/hr .[id number] SUZY Administration Olanzapine 10 mg 04/23/24 17:04 04/23/24 17:15 Olanzapine 5 Mg Tablet PO 05/23/24 17:14 10 mg QDAY PRN Administration AGITATION Ondansetron HCl 4 mg 04/21/24 17:27 04/22/24 00:21 Ondansetron Inj 2 Mg/Ml Inj 2 Ml IV 05/21/24 17:26 4 mg Q6H PRN Administration NAUSEA OR VOMITING Protocol Pantoprazole Sodium 40 mg 04/22/24 09:00 04/24/24 10:01 Pantoprazole Inj 40 Mg Vial IVP 05/22/24 08:59 40 mg QDAY SUZY Administration Potassium Phos/Sodium Phos 1 packet 04/24/24 09:00 04/24/24 10:02 [facility] Mbdb 1 Packet (1.5 Gm) PO 05/24/24 08:59 1 packet BID [facility] Administration Plan 69-year-old male with a past medical history of CAD status post stent who presented to the ED on 04/21/2024 with complaints of shortness of breath, cough and altered mentation. Per at bedside, patient started complaining of a sore throat yesterday as well as was warm to touch, and having chills after which they initially presented to the ED. #Acute hypoxic respiratory failure, resolved #COVID-pneumonia Patient has a history of COVID years ago. He presented on 04/21/2024 with sore throat, cough and fever and tested positive for COVID. Today, patient has worsening times and maxed out on high flow oxygen, was placed on BiPAP and eventually CPAP to optimize PEEP. 04/12/2024- Initial ABG showed a pH of 7.27 with CO2 of 40 and bicarb of 19 which reflected metabolic acidosis with inadequate compensation. Notably, although the patient was on CPAP, he had low minute ventilation and was subsequently changed back to BiPAP 11/12. -Continue on BIPAP as needed -Remdesivir (started 04/22) -IV Dexamethasone for a total of 10 days (started 04/22) -IV ceftriaxone and azithromycin (started 04/22) -Breathing treatments -IVF: Lactated Ringer's at 70 mL/h x 1 L #History of CAD status post stent The patient apparently has had history of CAD with 1 stent placed about 8 years ago. Has had no other cardiac events since then, no chest pain at this admission. EKG showed sinus rhythm, no ST or T changes. -Resume home meds: Aspirin 81 mg p.o. daily #Transaminitis- resolving Mildly elevated AST and ALT, likely to be related to COVID infection -Will continue to monitor LFTs #Hypoglycemia The patient presented with a blood glucose of 30, received 1 amp of D50. Will continue to monitor blood glucose, D10 if necessary 04/22/2024- Blood glucose this morning 219, will continue checks Q6H #Normocytic Anemia Hemoglobin 11.9, looks to be about baseline. Iron panel shows significant iron deficiency anemia, recommend starting iron outpatient as patient is acutely infected. -Monitor H&H, transfuse as needed -Follow-up outpatient #Acute encephalopathy- resolved likely due to hypoglycemia s/p precedex drip #Acute kidney injury- resolved Feeding: Dysphagia level 2, regular Thrombo prophylaxis: lovenox Lines: Peripheral IV Gastric Ulcer prophylaxis: Pantoprazole 40 mg IV daily CODE STATUS: Full code Plan of care discussed with senior resident Dr. Villalba PGY?[address] Garcia. Anurag Mcfarlane MD PGY?1 Disclaimer: This note was dictated by speech recognition. Minor errors in cad operator may be present due to voice recognition software. Attending Provider Attestation/Addendum I attest that I was physically present for the evaluation, physical examination, lab and imaging review of the patient with the residents. I discussed the case with the residents and agree with the findings and plans of care as documented above. At bedside today, patient states he is feeling well and does not have any new complaints. Has been saturating well on room air. Lungs are clear on auscultation. Patient was delirious and agitated yesterday evening, received Zyprexa as needed. Today, he is alert and oriented x 4, able to answer questions and follow commands appropriately. Continues to be on IV Rocephin, azithromycin, Decadron and remdesivir. Discussed with patient's at bedside, explained her about his current condition and management plans, she verbalized understanding and agrees with the plan. Patient did not have good oral intake yesterday, we will encourage him to have good oral intake and start him on gentle IV hydration. Awaiting physical therapy evaluation and completion of 5-day course of remdesivir IV. Mohini Garcia MD
[2024-04-24] MEDS: REMDESIVIR INJ 100 MG in SODIUM CHLORIDE 0.9% 100 ML IV (14:48)
[2024-04-24] MEDS: guaiFENesin SYRUP 200 MG/10 ML UDC 100 MG PO (15:11)
--- NOTE | 2024-04-24 15:29 | PC.SS ---
rounding note: Patient to complete his remdesivir tomorrow. Patient to possibly d/c tomorrow after PT eval.
--- NOTE | 2024-04-24 17:24 | PC.PT ---
Patient is safe to ambulate to the bathroom and around his room with the IV pole and 1 staff assist for safety. RN made aware.
[2024-04-25] VITALS: PULSE 73
[2024-04-25 03:10] VITALS: PULSE 73; RESP 16; O2SAT 100
[2024-04-25] MEDS: ALBUTEROL/IPRATROPIUM (Duoneb) RT SOL 3 ML NEBU INH ×3 (03:10→10:51)
[2024-04-25 04:00] VITALS: PULSE 76
[2024-04-25 05:31] LABS: Basophils % (Auto) 0 % (0-2.5); Eosinophils % (Auto) 0 % (0-10); Hematocrit 28.5 % (41.0-53.0); Hemoglobin 9.9 g/dL (13.5-16.0); Immature Granulocytes % (Auto) 2 % (0-0); Immature Granulocytes Auto 0.09 Thou/mm3 (0.00-0.00); Lymphocytes # (Auto) 0.5 Thou/mm3 (1.0-4.8); Lymphocytes % (Auto) 9 % (10-50); Mean Corpuscular HGB Conc 34.7 g/dl (31.0-37.0); Mean Corpuscular Hemoglobin 29.2 pg (25.0-35.0); Mean Corpuscular Volume 84 fL (80-100); Monocytes # (Auto) 0.3 Thou/mm3 (0.0-0.8); Monocytes % (Auto) 6 % (0-12); Neutrophils # (Auto) 4.8 Thou/mm3 (1.8-7.7); Neutrophils % (Auto) 84 % (37-80); Nucleated Red Blood Cell % 0 /100 WBC (0); Platelet Count 107 Thou/mm3 (140-440); RDW Standard Deviation 44.4 fL (35.1-43.9); Red Blood Count 3.39 Miln/mm3 (4.50-5.90); White Blood Count 5.7 Thou/mm3 (3.8-10.6)
[2024-04-25 06:00] VITALS: BMI 23.2
[2024-04-25 06:01] LABS: Alanine Aminotransferase 16 U/L (10-49); Albumin, Serum 3.5 gm/dL (3.4-4.8); Albumin/Globulin Ratio 1.7 (1.2-2.2); Alkaline Phosphatase 55 U/L (46-116); Anion Gap 8 (7-16); Aspartate Amino Transferase 23 U/L (0-34); BUN/Creatinine Ratio 31 Ratio (12-20); Bilirubin,Total 0.5 mg/dL (0.3-1.2); Blood Urea Nitrogen 22 mg/dL (9-23); Calcium 8.8 mg/dL (8.3-10.6); Calcium (Corrected) 9.2 mg/dL (8.5-10.1); Carbon Dioxide 25.5 mMol/L (20.0-31.0); Chloride 112 mMol/L (98-107); Creatinine (Component) 0.7 mg/dL (0.6-1.3); Globulin 2.1 gm/dL (2.3-3.5); Glucose 193 mg/dL (74-106); Magnesium 2.3 mg/dL (1.6-2.6); Osmolality,Calculated 297 (275-295); Phosphorous 2.2 mg/dL (2.4-5.1); Potassium 4.3 mMol/L (3.4-5.1); Sodium 145 mMol/L (136-145); Total Protein 5.6 gm/dL (5.7-8.2); eGFR > 60 See Note
[2024-04-25 06:51] VITALS: PULSE 72; RESP 13; RESP 15; RESP 98; O2SAT 100
[2024-04-25 08:00] VITALS: BP 120/78; PULSE 73; PULSE 85; RESP 14; TEMP 36.6; O2SAT 96
[2024-04-25] MEDS: ENOXAPARIN SOD INJ 40 MG/0.4 ML SYRINGE SC (08:00)
[2024-04-25] MEDS: DEXAMETHASONE SOD PHOS INJ 4 MG/ML VIAL 6 MG IV (08:00)
[2024-04-25] MEDS: PANTOPRAZOLE INJ 40 MG VIAL IVP (08:01)
[2024-04-25] MEDS: ASPIRIN 81 MG CHEW PO (08:01)
[2024-04-25] MEDS: cefTRIAXone 1,000 MG in SODIUM CHLORIDE 0.9% (Popper) 50 ML 100 MG IV (08:01)
[2024-04-25] MEDS: NAPH,KPH MBDB 1 PACKET (1.5 GM) PO (08:02)
[2024-04-25] MEDS: AZITHROMYCIN 250 MG TABLET 500 MG PO (08:02)
[2024-04-25] MEDS: REMDESIVIR INJ 100 MG in SODIUM CHLORIDE 0.9% 100 ML IV (10:23)
--- NOTE | 2024-04-25 10:36 | CHAP ---
Patient was visited by a Spiritual Care Volunteer on 04/25/2024 between 0900 and 0945 and received comfort, encouragement, and prayer.
[2024-04-25 10:52] VITALS: PULSE 77; RESP 16; O2SAT 100
--- NOTE | 2024-04-25 13:17 | PC.NURSE ---
Patient has orders to discharge home. Pt and aware that they need to isolate for 10 days since the . They both verbalized understanding of isolation.
--- NOTE | 2024-04-25 14:58 | ESDS_ITS ---
<Statement entered by Adelaide Villalba MD - 04/26/24 06:02> I discussed with and supervised the chemistry intern physician who took care of this patient. I personally saw and examined the patient and discussed the assessment and plan with the entire medicine team, including my attending Dr. Garcia, I agree with most of the assessment and plan as documented below Adelaide Villalba M.D. PGY-2 Planned Discharge Date 04/25/24 DS: Providers Provider Date of admission: 04/21/24 17:27 Primary care physician: Erick Osborne MD Admitting Provider: Nahomi Rivero MD Attending Provider on Admission: Mohini Garcia MD Consults: 04/22/24 20:45 Referral Speech Therapy Routine Comment: swallow eval as he did not do well on bedside 04/22/24 20:48 Referral Speech Therapy Urgent Comment: SWALLOW EVAL 04/23/24 10:10 Referral Physical Therapy Routine Comment: Physician Instructions: Attending Provider on DC: Mohini Garcia MD Discharging Provider: Anurag Mcfarlane MD DS: Diagnosis Problem List Completed Was Problem List Reviewed/Reconciled?: Yes Hospital Course Hospital Course Hospital course: 69-year-old male with a past medical history of CAD status post stent presented to the ED on 04/21/2024 with complaints of shortness of breath, cough and altered mentation. In the ED, the patient was noted to be COVID positive. Patient was initially admitted to ICU on Precedex drip for severe agitation. Patient received treatment with CPAP machine, remdesivir, and antibiotics. Patient was found to have MONCHO, treated with IV fluids. Patient was titrated off Precedex drip and downgraded to floors for further management. Patient weaned down to room air, saturating well. During hospital stay patient had a waxing and waning mentation, treated with reorientation and Zyprexa. Patient orientation stabilized. Patient medically stable and cleared for discharge. Discharge plan: You have been started on the following medications: -Dexamethasone 6 mg daily for 5 days Please continue taking all other medications as previously prescribed. You are being sent home with home health for physical therapy rehab. Please follow-up with your PCP in 1-2 weeks. Return to the ED if you develop new or worsening symptoms. Diagnoses: #Acute hypoxic respiratory failure, resolved #COVID-pneumonia #History of CAD status post stent #Transaminitis- resolving #Hypoglycemia #Normocytic Anemia #Acute encephalopathy- resolved #Acute kidney injury- resolved Plan of care discussed with senior resident Dr. Villalba PGY?[address] Garcia. Anurag Mcfarlane MD PGY?1 Time Spent with Patient Time attestation: Total time spent providing and/or coordinating discharge services: Home Health Home Health Referral Orders: 04/25/24 09:54 Home Health Referral Routine Reason For Exam: Generalized weakness Home-Bound The patient must either because of illness or injury, need the aid of supportive devices such as crutches, canes, wheelchairs, and walkers; the use of special transportation; or the assistance of another person in order to leave their place of residence; OR have a condition such that leaving his or her home is medically contraindicated. In addition, the patient also meets the following criteria: patient is normally unable to leave the home and leaving home requires considerable taxing effort. Addendum to Home Health Certification Practitioner's Certification: I certify that the patient has been under my care in the hospital and the care of attending physician (see below). We had a [id number] encounter on (see date below). My clinical findings indicate that the patient is home bound per the above criteria and the Home Health Services noted in these orders are medically necessary. The primary reason for the cuwx-go-[id number] encounter is related to the fact that the patient requires home health services. Date Certifying [id number] Physician Encounter: 04/21/24 Physician's Name who will Assume Oversight for Services: Erick Osborne Physician's Phone No.who will Assume Oversight for Service: DIRECTOR OF VENDOR MANAGEMENT - Community Resources: No PT to Evaluate: Yes PT to evaluate and provide a treatmnet plan to increase patient's mobility and strength. Wound Care: No IV Therapy: No RN Safety Evaluation: Yes RN to evaluate and create a plan of care that will produce positive outcomes. Palliative Treatment: No Palliative treatment and evaluate the need for hospice. Home Health Aide - Personal Care: No Home Health Aide to assist with any ADL's. Exam Vital Signs Temp Pulse Resp BP Pulse Ox O2 Del Method O2 Flow Rate 97.9 F 77 16 120/78 100 Room Air 4 04/25/24 08:00 04/25/24 10:52 04/25/24 10:52 04/25/24 08:00 04/25/24 10:52 04/25/24 08:00 04/22/24 20:00 FiO2 50 04/22/24 12:00 Narrative Exam PE: Gen: Well-developed and well-nourished. HEENT: NCAT, PERRLA, EOMI, MMM, anicteric conjunctivae. CVS: normal S1 and S2. RRR. No M/R/G. Resp: CTA B/L. No rhonchi, rales, crackles or wheezing. Abd: soft, non-tender, non-distended. MSK: Good ROM in BUE & BLE. No edema or rash. Neuro: CN II-XII grossly intact. Strength 5/5 in BUE & BLE. Alert and oriented x3. Psych: appropriate mood and affect. Discharge Plan Plan Patient Disposition: Home w/HOME HEALTH Patient condition on transfer: Stable Care Plan Goals: You have been started on the following medications: -Dexamethasone 6 mg daily for 5 days Please continue taking all other medications as previously prescribed. You are being sent home with home health for physical therapy rehab. Please follow-up with your PCP in 1-2 weeks. Return to the ED if you develop new or worsening symptoms. Prescriptions/Referrals Prescriptions/Med Rec: New dexamethasone 6 mg tablet 6 mg PO QDAY 5 Days Qty: 5 0RF Continued ondansetron 4 mg tablet,disintegrating 4 mg PO Q8H Qty: 10 0RF aspirin 81 mg Tablet,Delayed Release (Dr/Ec) 81 mg PO QDAY 30 Days Qty: 30 3RF pantoprazole 20 mg tablet,delayed release (DR/EC) 20 mg PO QDAY Qty: 14 0RF Ensure MAX Protein Liquid 1 ea PO BID Qty: 3960 0RF ferrous sulfate 325 mg (65 mg iron) Tablet 325 mg PO QDAY vitamin B6-vitamin E-magnesium Tablet 1 tab PO QDAY atorvastatin 20 mg Tablet 20 mg PO QPM Referrals: Erick Osborne MD [Primary Care Provider] - Patient/Caregiver Discharge Instructions Discharge Activity: as per physical therapy Education Materials: 2019-nCoV, Dysphagia Aspiration Print Language: Georgian Stand Alone Forms: [facility] Award Info., Patient Portal Info Letter Discharge Order Discharge Orders: Discharge (Routine); Ordered 04/25/24 Ordered By: Anurag Mcfarlane Quality Discharge Quality Measures VTE prophylaxis Attestestation MD Attestation I attest that I was physically present for the evaluation, physical examination, lab and imaging review of the patient with the residents. I discussed the case with the residents and agree with the findings and plans of care as documented above. Mohini Garcia MD
--- NOTE | 2024-04-25 16:01 | PC.CC ---
Addendum entered by Sallie Emmanuel RN 04/25/24 16:54: Start of care date with [facility] is 04/26/24. Addendum entered by Sallie Emmanuel RN 04/25/24 16:02: [facility] accepted the pt[facility] Booked [facility]. Pending start of care date. Original Note: HH referral sent on [facility]. Awaiting responses. Pending Start of care date.
== END 2024-04-25 13:16 | disposition home health service (06) | DRG 177 ==
LOC: SERX 16:23 → S2SX 04-22 13:50 → S2NX 04-25 09:54 → S2SX 05-02 08:38 → SERHOLD 05-02 08:38
PROVIDERS: Student in an Organized Health Care Education/Training Program; Admitting Provider Internal Medicine; Emergency Provider Emergency Medicine; PCP Family Medicine; Visit Provider Student in an Organized Health Care Education/Training Program
DX: U07.1 COVID-19 (principal); J12.82 Pneumonia due to coronavirus disease 2019; J96.01 Acute respiratory failure with hypoxia; N17.9 Acute kidney failure, unspecified; J44.1 Chronic obstructive pulmonary disease with (acute) exacerbation; J44.0 Chronic obstructive pulmonary disease with (acute) lower respiratory infection; E87.29 Other acidosis; G93.40 Encephalopathy, unspecified; D50.9 Iron deficiency anemia, unspecified; E86.1 Hypovolemia; E16.2 Hypoglycemia, unspecified; I95.9 Hypotension, unspecified; R13.10 Dysphagia, unspecified; I25.10 Atherosclerotic heart disease of native coronary artery without angina pectoris; R74.01 Elevation of levels of liver transaminase levels; Z86.16 Personal history of COVID-19; Z95.5 Presence of coronary angioplasty implant and graft; Z78.1 Physical restraint status; Z79.82 Long term (current) use of aspirin
CPT/HCPCS: 36415; 36600; 71045; 80053; 80061; 80307; 81001; 82803; 83036; 83540; 83550; 83605; 83735; 83880; 84100; 84484; 85025; 85610; 85730; 87040; 87081; 87205; 87400; 87634; 87651; 87811; 92526; 92610; 93005; 94640; 94660; 96365; 96374; 96375; 97162; 99291; A9270; J0248; J0456; J0696; J1100; J1650; J2060; J2405; J2470; J2919; J3490; J7030; J7040; J7050; J7120

== ENCOUNTER → 2024-06-02 | Outpatient (CLI) | payer MEDICARE, SELFPAY ==
[2024-06-02 11:31] LABS: Collection Type, Urine Clean Catch; Squamous Epithelial Cell,Urine 0 /hpf (0-5)
[2024-06-02 12:16] LABS: Bilirubin,Urine Negative (Negative); Blood,Urine Trace (Negative); Clarity,Urine Clear (Clear/Hazy); Color,Urine Lt-Yellow (Lt Yel-Yel); Glucose, Urine Negative (Negative); Ketones,Urine Negative (Negative); Leukocyte Esterase,Urine Negative (Negative); Nitrite,Urine Negative (Negative); PH,Urine 5.5 (5.0-7.0); Protein,Urine Negative (Neg - Trace); RBC,Urine 2 /hpf (0-3); Specific Gravity,Urine 1.023 (1.001-1.035); Urobilinogen,Urine Negative mg/dL (0.0-1.0); WBC,Urine 1 /hpf (0-5)
[2024-06-02 12:19] LABS: Basophils # (Auto) 0.1 Thou/mm3 (0.0-0.2); Basophils % (Auto) 2 % (0-2.5); Eosinophils # (Auto) 0.1 Thou/mm3 (0.0-0.5); Eosinophils % (Auto) 2 % (0-10); Hematocrit 37.5 % (41.0-53.0); Hemoglobin 13.1 g/dL (13.5-16.0); Immature Granulocytes % (Auto) 0 % (0-0); Immature Granulocytes Auto 0.01 Thou/mm3 (0.00-0.00); Lymphocytes % (Auto) 49 % (10-50); Mean Corpuscular HGB Conc 34.9 g/dl (31.0-37.0); Mean Corpuscular Hemoglobin 30.5 pg (25.0-35.0); Mean Corpuscular Volume 87 fL (80-100); Monocytes # (Auto) 0.4 Thou/mm3 (0.0-0.8); Monocytes % (Auto) 10 % (0-12); Neutrophils # (Auto) 1.5 Thou/mm3 (1.8-7.7); Neutrophils % (Auto) 37 % (37-80); Nucleated Red Blood Cell % 0 /100 WBC (0); Platelet Count 169 Thou/mm3 (140-440); RDW Standard Deviation 46.5 fL (35.1-43.9); White Blood Count 4.1 Thou/mm3 (3.8-10.6)
[2024-06-02 12:30] LABS: Alanine Aminotransferase 13 U/L (10-49); Albumin, Serum 4.2 gm/dL (3.4-4.8); Albumin/Globulin Ratio 2.2 (1.2-2.2); Alkaline Phosphatase 97 U/L (46-116); Anion Gap 5 (7-16); Aspartate Amino Transferase 32 U/L (0-34); BUN/Creatinine Ratio 25 Ratio (12-20); Bilirubin,Total 0.8 mg/dL (0.3-1.2); Blood Urea Nitrogen 15 mg/dL (9-23); Calcium 9.1 mg/dL (8.3-10.6); Calcium (Corrected) 9.1 mg/dL (8.5-10.1); Carbon Dioxide 30.5 mMol/L (20.0-31.0); Cardiac Risk Estimate 3.1 RATIO (4.0-6.7); Chloride 107 mMol/L (98-107); Cholesterol 226 mg/dL (132-200); Creatinine (Component) 0.6 mg/dL (0.6-1.3); Globulin 1.9 gm/dL (2.3-3.5); Glucose 84 mg/dL (74-106); HDL Cholesterol 72 mg/dL (40-60); LDL Cholesterol,Calculated 133 mg/dL (0-130); Osmolality,Calculated 282 (275-295); Potassium 4.2 mMol/L (3.4-5.1); Sodium 142 mMol/L (136-145); Thyroid Stimulating Hormone 3.35 uIU/mL (0.55-4.78); Total Protein 6.1 gm/dL (5.7-8.2); Triglycerides 104 mg/dL (30-150); eGFR > 60 See Note
== END | disposition home or self-care (01) ==
LOC: SLDO 11:24
PROVIDERS: PCP Family Medicine; Referring Provider Family Medicine; Visit Provider Family Medicine
DX: Z00.00 Encounter for general adult medical examination without abnormal findings (principal); E78.2 Mixed hyperlipidemia; I25.10 Atherosclerotic heart disease of native coronary artery without angina pectoris; R31.21 Asymptomatic microscopic hematuria
CPT/HCPCS: 36415; 80053; 80061; 81001; 84443; 85025